=== PATIENT | female | born 1945 | race Caucasian/White ===

== ENCOUNTER 2019-05-27 06:57 | Day surgery (SDC) | payer MEDICARE ==
[~2019-05-27 06:57] MED LIST: CYCLOPENTOLATE 1% OPHTH DROPS 2 ML ONE; KETOROLAC 0.45% OPHTH DROPS ONE; PHENYLEPHRINE 2.5% OPHTH 2 ML DROPS ONE; PROPARACAINE 0.5% OPHTH DROPS 15 ML ONE
[2019-05-27] MEDS ORDERED: fentaNYL 100 MCG/2 ML VIAL IVP ONE (06:58)
[2019-05-27] MEDS ORDERED: MIDAZOLAM 2 MG/2 ML VIAL IVP ONE (06:58)
[2019-05-27] MEDS ORDERED: PHENYLEPHRINE 2.5% OPHTH 2 ML DROPS RIGHTEYE ONE (07:35)
[2019-05-27] MEDS ORDERED: PROPARACAINE 0.5% OPHTH DROPS 15 ML RIGHTEYE ONE ×2 (07:35→08:35)
[2019-05-27] MEDS ORDERED: CYCLOPENTOLATE 1% OPHTH DROPS 2 ML RIGHTEYE ONE (07:35)
[2019-05-27] MEDS ORDERED: KETOROLAC 0.45% OPHTH DROPS RIGHTEYE ONE (07:35)
[2019-05-27] MEDS ORDERED: LACTATED RINGERS 500 ML IV ONE (07:40)
--- NOTE | 2019-05-27 07:41 | ANESTHESIA ---
Pre-Anesthesia VS, & Labs - Diagnosis Right senile combined cataract - Procedure Right phaco with IOL implant Vital Signs: Temp Pulse Resp BP Pulse Ox 36.4 C L 78 18 141/79 H 95 05/27/19 07:26 05/27/19 07:26 05/27/19 07:26 05/27/19 07:26 05/27/19 07:26 Height 5 ft 4 in Weight (kg) 94.7 kg - NPO >8 hours, Other (Sip of water this am with pill) - Is Patient ?: Not Applicable - Lab Results Lab results reviewed: No Anes History & Medical History - Anesthetic History Anesthesia Complications: reports: No previous complications Family history of Anesthesia Complications: Denies Family history of Malignant Hyperthermia: Denies - Medical History Cardiovascular: reports: Hypertension Pulmonary: reports: COPD, Other (Chronic daily cough) Gastrointestinal: reports: None Urinary: reports: None Neuro: reports: None Musculoskeletal: reports: Osteoarthritis Endocrine/Autoimmune: reports: HyPOthyroidism Blood Disorders: reports: None Skin: reports: None Smoking Status: Current every day smoker Psychosocial: reports: No issues indicated, Other (Drinks wine daily) Exam General: Alert, Oriented x3, Cooperative Mouth Opening: Greater than 4 Fingerbreadths Neck Mobility: Normal Mallampati classification: II Thyromental Distance: greater than 6 cm Respiratory: Rhonchi Cardiovascular: Regular rate Plan Anesthesia Type: MAC (Patient anxious about procedure, hx of daily panic attacks, wants to remember nothing) Consent for Procedure(s) Verified and Reviewed: Yes Code Status: Attempt Resuscitation ASA classification: 3-Severe systemic disease Is this case an emergency?: No
[2019-05-27] MEDS ORDERED: BRIMONIDINE 0.2% OPHTH DROPS 5 ML ONE (07:42)
[2019-05-27] MEDS ORDERED: VANCOMYCIN OPHTHALMI 8MG/0.8ML 8 MG/0.8 ML SYRINGE IO ONE ×2 (07:42→08:36)
[2019-05-27] MEDS ORDERED: timoloL maleate 0.5% OPHTH DROPS (10ML) ONE (07:42)
[2019-05-27] MEDS ORDERED: TRIAMCIN/MOXIFLOX OPHTHALMIC 0.6 ML VIAL IO ONE ×2 (07:42→08:35)
[2019-05-27] MEDS ORDERED: BSS/LIDOCAINE/EPINEPHRINE 1 ML SYRINGE ONE (07:42)
[2019-05-27] MEDS ORDERED: BRIMONIDINE 0.2% OPHTH DROPS 5 ML OPTH ONE (08:34)
[2019-05-27] MEDS ORDERED: CHONDR SULF/HYALURONATE SYRINGE IO ONE (08:34)
[2019-05-27] MEDS ORDERED: EPINEPHrine 1 MG/ML AMP IVP ONE (08:34)
[2019-05-27] MEDS ORDERED: BSS/LIDOCAINE/EPINEPHRINE 1 ML SYRINGE IO ONE (08:35)
[2019-05-27] MEDS ORDERED: TIMOLOL 0.5% OPHTH DROPS OPTH ONE (08:35)
[2019-05-27 09:01] VITALS: BP 129/68
--- NOTE | 2019-05-27 10:26 | OPERATIVE REPORT ---
DATE OF SERVICE: 05/27/2019 Physician: Denton Delgado MD PREOPERATIVE DIAGNOSIS: Visually significant cataract, right eye. This was her first cataract surge ry. POSTOPERATIVE DIAGNOSIS: Visually significant cataract, right eye. This was her first cataract surg bria. DESCRIPTION OF PROCEDURE: Phacoemulsification with posterior chamber intraocular lens implant, right eye. SURGEON: Denton Delgado MD ANESTHESIA: Monitored anesthesia care. COMPLICATIONS: None. OPERATIVE INDICATIONS: This is a 73-year-old woman with progressive vision loss in the right eye due to 2-3+ nuclear sclerotic and 2-3+ cortical cataract. Best corrected visual acuity was 20/20, with glare to 20/100 in the right eye. Indications for surgery are overall decrease in vision, difficulty seeing words on a computer screen, difficulty reading, difficulty seeing words, closed caption or ga me scores on TV, difficulty seeing street signs, difficulty driving in low light or at night, difficu lty driving at night because of headlights from other vehicles, and difficulty with glare or bright l ights in any situation. She was consented at length concerning risks and benefits of cataract surger y, after which she expressed a desire to proceed with surgery. OPERATIVE PROCEDURE: Patient was taken to OR #3 and placed under monitored anesthesia care. A surgi kamran timeout was conducted confirming correct patient, correct procedure, and correct surgical site. She was given topical anesthesia, and prepped and draped in the usual sterile fashion. The eye was e ntered at the 12 and 9 o'clock positions. Intracameral Shugarcaine was injected into the anterior ch hcela, followed by Viscoat. A continuous tear curvilinear capsulorrhexis was performed. The nucleus was hydrodissected and phacoemulsified. Cortex was evacuated using automated infusion and aspiratio n. Provisc was injected in the capsular bag, and a 23.0 diopter intraocular lens was inserted into t he bag. Infusion and aspiration was used to evacuate the viscoelastic materials. The eye was inflat ed to physiologic pressure using balanced salt solution and found to be watertight. Approximately 0. 25 mL of a mixture of triamcinolone, moxifloxacin was injected transsclerally into the vitreous in th e inferotemporal quadrant. An additional 0.55 mL of a mixture of triamcinolone, moxifloxacin and van comycin was then injected subconjunctivally in the superior quadrant for infection and inflammation p rophylaxis. Wound integrity was checked with Weck-Mela sponges. Patient was taken from the operating room in good condition and given postoperative instructions. TD: 05/27/2019 08:55
== END 2019-05-27 06:58 | disposition home or self-care (01) ==
LOC: SDS 06:57
PROVIDERS: ATTEND Ophthalmology
PROC: 08RJ3JZ Replacement of Right Lens with Synthetic Substitute, Percutaneous Approach (ICD-10-PCS; principal; 2019-05-27 08:30)
DX: H25.811 Combined forms of age-related cataract, right eye (principal); F41.9 Anxiety disorder, unspecified; K21.9 Gastro-esophageal reflux disease without esophagitis; I10 Essential (primary) hypertension; E78.00 Pure hypercholesterolemia, unspecified; E03.9 Hypothyroidism, unspecified; Z79.82 Long term (current) use of aspirin; J44.9 Chronic obstructive pulmonary disease, unspecified; F17.200 Nicotine dependence, unspecified, uncomplicated
CPT/HCPCS: 66984; A9270; J3490; V2632

== ENCOUNTER 2020-08-07 16:41 | Outpatient (CLI) | payer MEDICARE | END 2020-08-07 16:42 | disposition home or self-care (01) | LOC: COV 16:41 | PROVIDERS: ATTEND Ophthalmology | DX: Z01.812 Encounter for preprocedural laboratory examination (principal); H25.812 Combined forms of age-related cataract, left eye; Z20.822 Contact with and (suspected) exposure to COVID-19 ==

== ENCOUNTER 2020-08-10 08:17 | Day surgery (SDC) | payer MEDICARE ==
[~2020-08-10 08:17] MED LIST changes: -CYCLOPENTOLATE 1% OPHTH DROPS 2 ML ONE; -PHENYLEPHRINE 2.5% OPHTH 2 ML DROPS ONE
[2020-08-10] MEDS ORDERED: LACTATED RINGERS 500 ML IV ONE ×2 (08:39→10:07)
[2020-08-10] MEDS ORDERED: TRIAMCIN/MOXIFLOX OPHTHALMIC 0.6 ML VIAL IO ONE ×3 (08:47→09:56)
[2020-08-10] MEDS ORDERED: BRIMONIDINE 0.2% OPHTH DROPS 5 ML ONE ×2 (08:47→08:59)
[2020-08-10] MEDS ORDERED: EPINEPHrine 1 MG/ML AMP ONE ×2 (08:47→08:59)
[2020-08-10] MEDS ORDERED: TIMOLOL 0.5% OPHTH DROPS ONE ×2 (08:48→08:59)
[2020-08-10] MEDS ORDERED: VANCOMYCIN OPHTHALMI 8MG/0.8ML 8 MG/0.8 ML SYRINGE IO ONE ×3 (08:48→09:57)
[2020-08-10] MEDS ORDERED: BSS/LIDOCAINE/EPINEPHRINE 1 ML SYRINGE ONE ×2 (08:48→08:59)
[2020-08-10] MEDS ORDERED: PHENYLEPHRINE 2.5% OPHTH 2 ML DROPS LEFTEYE ONE (08:57)
[2020-08-10] MEDS ORDERED: MIDAZOLAM 2 MG/2 ML VIAL ONE (08:58)
[2020-08-10] MEDS ORDERED: CYCLOPENTOLATE 2% OPHTH DROPS 2 ML LEFTEYE ONE (09:00)
--- NOTE | 2020-08-10 09:05 | ANESTHESIA ---
Pre-Anesthesia VS, & Labs - Diagnosis L senile combined cataract - Procedure L extraction cataract w/IOL Vital Signs: Temp Pulse Resp BP Pulse Ox 36.1 C L 79 16 145/81 H 100 08/10/20 08:45 08/10/20 08:45 08/10/20 08:45 08/10/20 08:45 08/10/20 08:45 Height: 5 ft 5 in Weight (kg): 90 kg Body Mass Index: 33.0 BMI Classification: Obese - NPO >8 hours - Is Patient ?: No - Lab Results Lab results reviewed: Yes Home Medications and Allergies Home Medications: Ambulatory Orders Alendronate [Fosamax] 70 mg PO Q7D 08/09/20 Vitamin B Complex Vit C No.3 [B Complex with Vitamin C] 1 tab PO DAILY 08/09/20 Cholecalciferol (Vitamin D3) [Vitamin D3] 2 mcg PO DAILY 08/10/20 Alprazolam [Xanax] 1 tab PO DAILY PRN 05/27/19 Aspirin [Adult Low Dose Aspirin EC] 81 mg PO DAILY 05/27/19 Clonazepam 0.5 mg PO DAILY PRN 05/27/19 Levothyroxine [Synthroid] 125 mcg PO DAILY 05/27/19 Simvastatin 20 mg PO DAILY 05/27/19 amLODIPine [Norvasc] 5 mg PO DAILY 05/27/19 Alendronate [Fosamax] 70 mg PO Q7D 08/09/20 Vitamin B Complex Vit C No.3 [B Complex with Vitamin C] 1 tab PO DAILY 08/09/20 Allergies/Adverse Reactions: Allergies Allergy/AdvReac Type Severity Reaction Status Date / Time adhesive tape Allergy Rash Verified 08/09/20 14:50 bacitracin Allergy Hives Verified 08/09/20 14:50 [From Triple Antibiotic] homatropine Allergy Respiratory Verified 08/09/20 14:50 [From Hycodan (with homatropin)] hydrocodone Allergy Respiratory Verified 08/09/20 14:50 [From Hycodan (with homatropin)] lidocaine Allergy Hives Verified 08/09/20 14:50 neomycin Allergy Hives Verified 08/09/20 14:50 [From Triple Antibiotic] polymyxin B Allergy Hives Verified 08/09/20 14:50 [From Triple Antibiotic] zolpidem [From Ambien] Allergy Hallucinati Verified 08/09/20 14:50 ons Anes History & Medical History - Anesthetic History Anesthesia Complications: reports: No previous complications Family history of Anesthesia Complications: Denies Family history of Malignant Hyperthermia: Denies - Medical History Cardiovascular: reports: Hypertension, High cholesterol Pulmonary: reports: COPD, Other Gastrointestinal: reports: None Urinary: reports: Incontinence Neuro: reports: None Musculoskeletal: reports: Chronic back pain Endocrine/Autoimmune: reports: HyPOthyroidism Blood Disorders: reports: None Skin: reports: None Smoking Status: Current every day smoker - Surgical History General: reports: Appendectomy Eyes Ears Nose Throat (EENT): reports: Tonsil/Adenoidectomy Gynecologic: reports: Hysterectomy, Oophrectomy Orthopedic: reports: Rotator cuff repair, Carpal Tunnel surgery, Spine surgery Exam General: Alert, Oriented x3, Cooperative Dental: WNL Mouth Openin Fingerbreadth Neck Mobility: Normal Mallampati classification: II Thyromental Distance: 4-6 cm Respiratory: Lungs clear, Normal breath sounds, No respiratory distress Cardiovascular: Regular rate Neurological: Normal speech Mental/Cognitive Status: Alert/Oriented X3, Normal for patient Cognitive Status: Within normal limits Plan Anesthesia Type: MAC Consent for Procedure(s) Verified and Reviewed: Yes Code Status: Attempt Resuscitation ASA classification: 3-Severe systemic disease Is this case an emergency?: No
[2020-08-10] MEDS ORDERED: fentaNYL 100 MCG/2 ML VIAL ONE (09:46)
[2020-08-10] MEDS ORDERED: BRIMONIDINE 0.2% OPHTH DROPS 5 ML OPTH ONE (09:55)
[2020-08-10] MEDS ORDERED: EPINEPHrine 1 MG/ML AMP IR ONE (09:55)
[2020-08-10] MEDS ORDERED: BSS/LIDOCAINE/EPINEPHRINE 1 ML SYRINGE IO ONE (09:56)
[2020-08-10] MEDS ORDERED: PROPARACAINE 0.5% OPHTH DROPS 15 ML EACHEYE ONE (09:56)
[2020-08-10] MEDS ORDERED: CHONDR SULF/HYALURONATE SYRINGE IO ONE (09:56)
[2020-08-10] MEDS ORDERED: TIMOLOL 0.5% OPHTH DROPS OPTH ONE (09:56)
--- NOTE | 2020-08-10 10:10 | ANESTHESIA POST OP EVALUATION ---
Anesthesia Post Eval - Post Anesthesia Eval Vitals: Last Vital Signs Temp 36.1 C L 08/10/20 08:45 Pulse 79 08/10/20 08:45 Resp 16 08/10/20 08:45 BP 145/81 H 08/10/20 08:45 Pulse Ox 100 08/10/20 08:45 CV Function Including HR & BP: Stable Pain Control: Satisfactory Nausea & Vomiting: Negative Mental Status: Baseline Respiratory Status: Airway Patent Hydration Status: Satisfactory Anesthesia Complications: None
--- NOTE | 2020-08-10 10:18 | OPERATIVE REPORT ---
Operative Report - Other Other Information/Narrative: Date of Surgery: 08/10/20 Preop Dx: Visually significant cataract left eye. [Cataract surgery was performed in the right eye on 05/27/2019. Postop Dx: Same Procedure: Phacoemulsification with posterior chamber intraocular lens implant left eye Surgeon: Dr. Denton Delgado Anesthesia: Monitored anesthesia care Complications: None Operative Indications: This is a 75-year-old F with progressive vision loss in the left eye due to 2-3+ nuclear sclerotic and 1+ cortical cataract. Best corrected visual acuity was 20/25 with glare to hand motion vision in the left eye. Indications for surgery were: - Difficulty driving in low light or at night - Difficulty driving at night because of headlights from other vehicles - Difficulty with glare or bright lights in any situation The patient was consented at length concerning the risks and benefits of cataract surgery after which the patient expressed a desire to proceed with surgery. Operative Procedure: The patient was taken into OR#3 and placed under monitored anesthesia care. A surgical time-out was conducted confirming correct patient, correct procedure, and correct surgical site. The patient was given topical anesthesia and then prepped and draped in the usual sterile fashion. The eye was entered at the 6 and 3 oclock positions. Intracameral Shugarcaine was injected into the anterior chamber followed by a dispersive viscoelastic. A continuous-tear curvilinear capsulorhexis was performed. The nucleus was hydrodissected and phacoemulsified. The cortex was evacuated using automated infusion and aspiration. A cohesive viscoelastic was injected into the capsular bag and a 21.5 diopter intraocular lens was inserted into the bag. Infusion and aspiration were used to evacuate the viscoelastic materials from the eye. The wounds were hydrated and the eye inflated to physiologic pressure using balanced salt solution. Approximately 0.25ml of a mixture of triamcinolone and moxifloxacin was injected trans-sclerally into the vitreous in the inferotemporal quadrant using a 30 gauge cannula. An additional 0.55ml of a mixture of triamcinolone, moxifloxacin, and vancomycin was injected subconjunctivally in the superior quadrant for infection and inflammation prophylaxis. Wound integrity was checked with Weck-Mela sponges. The patient was taken from the operating room in good condition and given post-op instructions.
[2020-08-10 11:07] VITALS: BP 135/118
== END 2020-08-10 08:18 | disposition home or self-care (01) ==
LOC: SDS 08:17
PROVIDERS: ATTEND Ophthalmology
DX: H25.812 Combined forms of age-related cataract, left eye (principal); I10 Essential (primary) hypertension; E03.9 Hypothyroidism, unspecified; E78.00 Pure hypercholesterolemia, unspecified; J44.9 Chronic obstructive pulmonary disease, unspecified; F17.200 Nicotine dependence, unspecified, uncomplicated; F41.9 Anxiety disorder, unspecified; E66.9 Obesity, unspecified; Z68.33 Body mass index [BMI] 33.0-33.9, adult; R32 Unspecified urinary incontinence; Z98.41 Cataract extraction status, right eye; Z96.1 Presence of intraocular lens; K21.9 Gastro-esophageal reflux disease without esophagitis; Z79.82 Long term (current) use of aspirin; Z79.899 Other long term (current) drug therapy
CPT/HCPCS: 66984; A9270; J3490; J7120; V2632

== ENCOUNTER 2022-07-15 21:28 | Outpatient (CLI) | payer MEDICARE | END 2022-07-15 21:29 | disposition critical access hospital (66) | LOC: EMS 21:28 | DX: R53.1 Weakness (principal); J18.9 Pneumonia, unspecified organism; R42 Dizziness and giddiness; W18.39XA Other fall on same level, initial encounter; Y92.003 Bedroom of unspecified non-institutional (private) residence as the place of occurrence of the external cause | CPT/HCPCS: A0425; A0429 ==

== ENCOUNTER 2022-07-15 21:47 | Inpatient (IN) | payer MEDICARE ==
[2022-07-15] MEDS ORDERED: ALBUTEROL NEB 2.5 MG/3 ML INH STA (22:35)
[2022-07-15 22:42] LABS: BASOPHILS # (AUTO) 0.1 10^3/uL (0.0-0.1); BASOPHILS % (AUTO) 0.9 %; EOSINOPHILS % (AUTO) 0.3 %; HCT - HEMATOCRIT 41.6 % (37.0-47.0); HGB - HEMOGLOBIN 15.1 g/dL (12.0-16.0); LYMPHOCYTES # (AUTO) 0.6 10^3/uL (1.5-3.5); LYMPHOCYTES % (AUTO) 7.2 %; MEAN CORPUSCULAR HEMOGLOBIN 37.5 pg (27.0-31.0); MEAN CORPUSCULAR HGB CONC 36.3 g/dL (32.0-36.0); MEAN CORPUSCULAR VOLUME 103.2 fL (81.0-99.0); MEAN PLATELET VOLUME 8.9 fL (7.9-10.8); MONOCYTES # (AUTO) 0.2 10^3/uL (0.0-1.0); NEUTROPHILS # (AUTO) 7.8 10^3/uL (1.5-6.6); NEUTROPHILS % (AUTO) 88.1 %; PLT - PLATELET COUNT 234 10^3/uL (130-450); RED BLOOD COUNT 4.03 10^6/uL (4.20-5.40); RED CELL DISTRIBUTION WIDTH 13.2 % (12.0-15.0); WHITE BLOOD COUNT 8.8 x10^3/uL (4.8-10.8)
[2022-07-15 22:55] LABS: ALBUMIN 2.4 g/dL (3.2-5.5); ALBUMIN/GLOBULIN RATIO 0.8 (1.0-2.2); CALCIUM 8.7 mg/dL (8.5-10.3); CREATININE 0.7 mg/dL (0.4-1.0); TOTAL PROTEIN 5.4 g/dL (6.7-8.2)
--- NOTE | 2022-07-15 23:12 | ED Physician Documentation ---
PD HPI Fall - Stated complaint Stated Complaint: GLF - Chief complaint Chief Complaint: General - History obtained from History obtained from: Patient - Additional information Additional information: HPI from patient with some HPI information provided by EMS. Patient is brought in by ambulance. Patient's chief complaint is generalized weakness. She was evaluated earlier today in the outpatient setting for dyspnea and cough, was diagnosed with pneumonia and prescribed Zithromax and fluconazole. She filled both of these prescriptions and has already taken the first dose (500 mg) of the Zithromax. Patient has COPD although she is not oxygen dependent, does not use or have a nebulizer; she does have an inhaler which she is only used as needed. The patient says her outpatient evaluation included blood tests as well as a chest x-ray. Patient says she was contacted [facility] and told her sodium was 120 (per patient; at the time she was contacted, she already had called 911 for weakness). After her outpatient evaluation, she returned home and [facility] she was taking shower when she experienced rapid onset of generalized weakness, causing her to fall. She describes a slow descent to the ground rather than a sudden fall; she denies any injury, denies any pain at this time. However, she found that she was too weak to stand back up. Family then called 911. EMS arrived to find patient with a pulse ox of 78% on room air, improved with 4 L nasal cannula oxygen to 89-91%. Patient says that when she fell, she did hit her head but denies headache, denies loss of consciousness. Review of Systems Constitutional: reports: Fatigue. denies: Fever, Chills, Sweats Cardiac: reports: Reviewed and negative Respiratory: reports: Dyspnea, Cough. denies: Hemoptysis, Wheezing GI: reports: Reviewed and negative : denies: Dysuria, Frequency Musculoskeletal: reports: Reviewed and negative Neurologic: reports: Generalized weakness, Head injury. 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, Oophrectomy HEENT: Tonsil/Adenoidectomy - Present Medications Home Medications: Ambulatory Orders Medication Instructions Recorded Confirmed Aspirin [Adult Low Dose Aspirin EC] 81 mg PO DAILY 05/27/19 07/16/22 clonazePAM [Clonazepam] 0.5 mg PO DAILY PRN 05/27/19 07/16/22 Cetirizine [ZyrTEC] 10 mg PO DAILY PRN 07/16/22 07/16/22 Cholecalciferol (Vitamin D3) 100 mcg PO DAILY 07/16/22 07/16/22 [Vitamin D3] Estradiol [Estrace] 1 g VG DAILY 07/16/22 07/16/22 Ibuprofen [Motrin] 400 mg PO TID PRN 07/16/22 07/16/22 Ipratropium/Albuterol [Combivent 1 puffs INH Q6H PRN 07/16/22 07/16/22 Respimat] Levothyroxine [Synthroid] 125 mcg PO QDAC 07/16/22 07/16/22 amLODIPine [Norvasc] 5 mg PO DAILY 07/16/22 07/16/22 - Allergies Allergies/Adverse Reactions: Allergies Allergy/AdvReac Type Severity Reaction Status Date / Time adhesive tape Allergy Rash Verified 08/09/20 14:50 bacitracin Allergy Hives Verified 08/09/20 14:50 [From Triple Antibiotic] homatropine Allergy Respiratory Verified 08/09/20 14:50 [From Hycodan (with homatropin)] hydrocodone Allergy Respiratory Verified 08/09/20 14:50 [From Hycodan (with homatropin)] lidocaine Allergy Hives Verified 08/09/20 14:50 neomycin Allergy Hives Verified 08/09/20 14:50 [From Triple Antibiotic] polymyxin B Allergy Hives Verified 08/09/20 14:50 [From Triple Antibiotic] zolpidem [From Ambien] Allergy Hallucinati Verified 08/09/20 14:50 ons - Social History Smoking Status: Current every day smoker PD ED PE NORMAL - Vitals Vital signs reviewed: Yes - General General: Alert and oriented X 3, No acute distress, Well developed/nourished - HEENT HEENT: Moist mucous membranes - Neck Neck: Supple, no meningeal sign, No bony TTP - Cardiac Cardiac: RRR - Respiratory Respiratory: No respiratory distress - Derm Derm: Normal color, Warm and dry - Extremities Extremities: No edema - Neuro Neuro: Alert and oriented X 3, fullerette 2-12 intact, Normal speech Eye Opening: Spontaneous Motor: Obeys Commands Verbal: Oriented GCS Score: 15 PD ED PE EXPANDED - Respiratory Respiratory: Rhonchi, Decreased breath sounds, Right upper lobe. No: Distress, Wheezing, Rales Results - Vitals Vitals: Vital Signs - 24 hr 07/15/22 07/15/22 07/15/22 22:06 22:10 22:11 Temperature 36.9 C Heart Rate 102 H Respiratory Rate Blood Pressure 120/65 O2 Saturation 78 L 78 L 92 If not protocol 4 : Oxygen Flow, liters/minute 07/15/22 07/15/22 07/15/22 22:53 23:00 23:59 Temperature Heart Rate 102 H 107 H 105 H Respiratory 24 22 24 Rate Blood Pressure 104/61 114/72 O2 Saturation 90 L 90 L If not protocol 4 4 5 : Oxygen Flow, liters/minute 07/16/22 07/16/22 07/16/22 01:13 01:59 02:00 Temperature 36.9 C Heart Rate 101 H 105 H 103 H Respiratory 26 H 22 22 Rate Blood Pressure 106/62 106/68 106/68 O2 Saturation 92 89 L 88 L If not protocol 5 4 4 : Oxygen Flow, liters/minute 07/16/22 07/16/22 07/16/22 04:00 06:13 07:14 Temperature Heart Rate 95 99 98 Respiratory 25 H 21 22 Rate Blood Pressure 129/64 113/62 O2 Saturation 90 L 90 L If not protocol 5 5 : Oxygen Flow, liters/minute 07/16/22 07/16/22 07/16/22 07:20 07:46 08:29 Temperature Heart Rate 101 H 93 99 Respiratory 25 H 28 H 14 Rate Blood Pressure 114/73 92/59 L 100/46 L O2 Saturation 92 93 88 L If not protocol 6 6 4.5 : Oxygen Flow, liters/minute 07/16/22 07/16/22 09:43 10:30 Temperature Heart Rate 101 H 99 Respiratory 28 H 26 H Rate Blood Pressure 108/70 113/82 H O2 Saturation 92 90 L If not protocol 6 4 : Oxygen Flow, liters/minute Oxygen O2 Source Nasal cannula - Labs Labs: Laboratory Tests 07/15/22 07/15/22 07/15/22 22:28 22:28 22:42 WBC 8.8 RBC 4.03 L Hgb 15.1 Hct 41.6 MCV 103.2 H MCH 37.5 H MCHC 36.3 H RDW 13.2 Plt Count 234 MPV 8.9 Neut # (Auto) 7.8 H Lymph # (Auto) 0.6 L Morris # (Auto) 0.2 Eos # (Auto) 0.0 Baso # (Auto) 0.1 Absolute Nucleated RBC 0.00 Nucleated RBC % 0.0 Sodium 123 L Potassium 4.0 Chloride 87 L Carbon Dioxide 24 Anion Gap 12.0 BUN 25 H Creatinine 0.7 Estimated GFR (MDRD) 82 L Glucose 89 Lactic Acid Calcium 8.7 Total Bilirubin 1.0 AST 36 ALT 24 Alkaline Phosphatase 134 H Total Protein 5.4 L Albumin 2.4 L Globulin 3.0 Albumin/Globulin Ratio 0.8 L Lipase 28 Urine Color Urine Clarity Urine pH Ur Specific [place] Urine Protein Urine Glucose (UA) Urine Ketones Urine Occult Blood Urine Nitrite Urine Bilirubin Urine Urobilinogen Ur Leukocyte Esterase Ur Microscopic Review Urine Culture Comments Nasal Adenovirus (PCR) NOT DETECTED Nasal B. parapertussis DNA (PCR) NOT DETECTED Nasal Coronavir 229E PCR NOT DETECTED Nasal Coronavir HKU1 PCR NOT DETECTED Nasal Coronavir NL63 PCR NOT DETECTED Nasal Coronavir OC43 PCR NOT DETECTED Nasal Enterovir/Rhinovir PCR NOT DETECTED Nasal Influenza B PCR NOT DETECTED Nasal Influenza A PCR NOT DETECTED Nasal Parainfluen 1 PCR NOT DETECTED Nasal Parainfluen 2 PCR NOT DETECTED Nasal Parainfluen 3 PCR NOT DETECTED Nasal Parainfluen 4 PCR NOT DETECTED Nasal RSV (PCR) NOT DETECTED Nasal B.pertussis DNA PCR NOT DETECTED Nasal C.pneumoniae (PCR) NOT DETECTED Curtis Human Metapneumo PCR NOT DETECTED Nasal M.pneumoniae (PCR) NOT DETECTED Nasal SARS-CoV-2 (PCR) NOT DETECTED 07/16/22 07/16/22 07/16/22 00:12 00:42 05:05 WBC RBC Hgb Hct MCV MCH MCHC RDW Plt Count MPV Neut # (Auto) Lymph # (Auto) Morris # (Auto) Eos # (Auto) Baso # (Auto) Absolute Nucleated RBC Nucleated RBC % Sodium 126 L Potassium 3.8 Chloride 90 L Carbon Dioxide 28 Anion Gap 8.0 BUN 21 H Creatinine 0.5 Estimated GFR (MDRD) 120 Glucose 88 Lactic Acid 1.8 Calcium 8.3 L Total Bilirubin AST ALT Alkaline Phosphatase Total Protein Albumin Globulin Albumin/Globulin Ratio Lipase Urine Color YELLOW Urine Clarity CLEAR Urine pH 5.5 Ur Specific [place] 1.025 Urine Protein NEGATIVE Urine Glucose (UA) NEGATIVE Urine Ketones NEGATIVE Urine Occult Blood NEGATIVE Urine Nitrite NEGATIVE Urine Bilirubin NEGATIVE Urine Urobilinogen 2 H Ur Leukocyte Esterase NEGATIVE Ur Microscopic Review NOT INDICATED Urine Culture Comments NOT INDICATED Nasal Adenovirus (PCR) Nasal B. parapertussis DNA (PCR) Nasal Coronavir 229E PCR Nasal Coronavir HKU1 PCR Nasal Coronavir NL63 PCR Nasal Coronavir OC43 PCR Nasal Enterovir/Rhinovir PCR Nasal Influenza B PCR Nasal Influenza A PCR Nasal Parainfluen 1 PCR Nasal Parainfluen 2 PCR Nasal Parainfluen 3 PCR Nasal Parainfluen 4 PCR Nasal RSV (PCR) Nasal B.pertussis DNA PCR Nasal C.pneumoniae (PCR) Curtis Human Metapneumo PCR Nasal M.pneumoniae (PCR) Nasal SARS-CoV-2 (PCR) - Rads (name of study) CXR Relevant Findings:: Prelim report reviewed, EMP independent interpretation of test (I reviewed these images and my interpretation is right upper lobe consolidation, mild cardiomegaly.), See rad report CT chest with IV contrast Relevant Findings:: Prelim report reviewed (Radiologist interpretation is "Significant consolidation involving the right upper lobe containing air bronchograms. Small right pleural effusion With passive atelectasis. Patchy infiltrates within the left upper lobe. Findings are most consistent with infectious process"), See rad report PD Medical Decision Making - ED course Complexity details: reviewed results, re-evaluated patient, considered differential, d/w patient ED course: No concerning findings on CBC (normal white blood cell count at 8.8). Lactate is also normal with result of 1.8. Significant hyponatremia with sodium level of 123. Despite the white blood cell count and lactate results within normal range, patient has a significant consolidation of the right upper lobe on chest x-ray with associated hypoxia as noted in HPI. She had already taken 500 mg of Zithromax earlier this evening. She is given 2 g of Rocephin in the emergency department tonight. She is also given an albuterol neb treatment. I discussed this case with the on-call physician for [place] (patient is a [place] patient). He agrees patient will require admission to the hospital for pneumonia, particularly in light of the significant hypoxia on room air. He recommends CT chest with intravenous contrast before disposition; the reason for this is that she did have a fall tonight and the extent of the right upper lobe consolidation/opacity could cause obscuration of visualization of the ribs. Associated acute rib fractures would complicate the treatment and prognosis and patient might benefit from transfer to another facility if this were the case. The CT chest performed, confirming right upper lobe consolidation, also showing small patchy infiltrates of the left upper lobe, as well. Also noted is a small right pleural effusion. There is no evidence of bony injury including rib fractures. I recontacted the physician for [place] and relayed these results to him. He subsequently recontacted me; there are no beds available at other [place] associated hospitals ([facility], [facility], [facility]), and thus admission to [facility] is approved. At this time, only ICU beds are available at [facility]. Despite the hypoxia on room air, it is noted that on 5 L of nasal cannula oxygen, her pulse ox maintained in the mid 90s and she is in no distress, able to speak in full sentences. Thus, plan is to hold patient in the emergency department until the morning when general/medical surgical beds are likely to become available at [facility]. Care of patient is turned over to the oncoming ED physician (Dr. San) at the end of my shift pending bed availability. Regarding the hyponatremia, she is given 1 L of normal saline over 4 hours. Sodium recheck after the infusion was complete improved from 123-126. She was then given normal saline IV at a maintenance rate of 150 cc/h. Departure - Departure Disposition: [address] [facility] DC/Xfer Clinical Impression: Hyponatremia Pneumonia Qualifiers: Pneumonia type: due to unspecified organism Laterality: bilateral Lung location: upper lobe of lung Qualified Code(s): J18.9 - Pneumonia, unspecified organism Condition: Stable Discharge Date/Time: 07/16/22 13:02
[2022-07-15 23:47] LABS: B. PARAPERTUSSIS- RESP PCR PAN NOT DETECTED; B. PERTUSSIS- RESP PCR PANEL NOT DETECTED; C. PNEUMONIAE- RESP PCR PANEL NOT DETECTED; CORONAVIRUS 229E-RESP PCR NOT DETECTED; CORONAVIRUS HKU1-RESP PCR NOT DETECTED; CORONAVIRUS NL63-RESP PCR NOT DETECTED; CORONAVIRUS OC43-RESP PCR NOT DETECTED; HUMAN METAPNEUMOVIRUS NOT DETECTED; INFLUENZA A- RESP PCR PANEL NOT DETECTED; INFLUENZA B - RESP PCR PANEL NOT DETECTED; M. PNEUMONIAE- RESP PCR PANEL NOT DETECTED; PARAINFLUENZA VIRUS 1 NOT DETECTED; PARAINFLUENZA VIRUS 2 NOT DETECTED; PARAINFLUENZA VIRUS 3 NOT DETECTED; PARAINFLUENZA VIRUS 4 NOT DETECTED; RHINOVIRUS/ENTEROVIRUS NOT DETECTED; RSV- RESP PCR PANEL NOT DETECTED; SARS-CoV-2 -RESP PCR PANEL NOT DETECTED
--- NOTE | 2022-07-16 00:17 | XRAY Report ---
PROCEDURE: Chest 2 View X-Ray INDICATIONS: cough TECHNIQUE: 2 views of the chest were acquired. COMPARISON: None. FINDINGS: Surgical changes and devices: None. Lungs and pleura: There are confluent right upper lobe airspace opacities consistent with consolidat ion. No pleural effusions or pneumothorax. Mediastinum: Mediastinal contours appear normal. Heart size is normal. Bones and chest wall: No suspicious bony lesions. Overlying soft tissues appear unremarkable. IMPRESSION: 1. Right upper lobe consolidation compatible with lobar pneumonia given clinical history. Reviewed by: Manjit Pride MD on 07/16/2022 12:15 AM PDT Approved by: Manjit Pride MD on 07/16/2022 12:15 AM PDT Station ID: [id number]
[2022-07-16] MEDS ORDERED: cefTRIAXone 2 GM in SODIUM CHLORIDE 0.9% MINIBAG 100 ML IV STA (00:22)
[2022-07-16] MEDS ORDERED: SODIUM CHLORIDE 0.9% 1,000 ML IV STA ×2 (00:23→04:39)
[2022-07-16] MEDS ORDERED: cefTRIAXone 2 GM VIAL ONE (00:30)
[2022-07-16 00:37] LABS: BILIRUBIN,URINE NEGATIVE (NEGATIVE); GLUCOSE, URINE (UA) NEGATIVE (NEGATIVE); KETONES,URINE (UA) NEGATIVE (NEGATIVE); LEUKOCYTE ESTERASE, URINE NEGATIVE (NEGATIVE); NITRITE,URINE NEGATIVE (NEGATIVE); OCCULT BLOOD,URINE NEGATIVE (NEGATIVE); PH,URINE 5.5 PH (5.0-7.5); PROTEIN,URINE NEGATIVE (NEGATIVE); UROBILINOGEN,URINE 2 E.U./dL (NORMAL)
[2022-07-16 00:38] LABS: CLARITY,URINE CLEAR (CLEAR)
[2022-07-16] MEDS ORDERED: iohexoL-300 100 ML VIAL ONE (02:11)
[2022-07-16 05:27] LABS: CALCIUM 8.3 mg/dL (8.5-10.3); CREATININE 0.5 mg/dL (0.4-1.0); POTASSIUM 3.8 mmol/L (3.5-5.0)
[2022-07-16] MEDS ORDERED: AZITHROMYCIN INJ 500 MG in SODIUM CHLORIDE 0.9% 250 ML IV STA (07:11)
[2022-07-16] MEDS ORDERED: ALBUTEROL NEB 2.5 MG/3 ML INH STA (07:14)
[2022-07-16] MEDS ORDERED: methylPREDNISolone SUCCINATE 125 MG/2 ML VIAL IVP STA (07:46)
[2022-07-16] MEDS ORDERED: SODIUM CHLORIDE 0.9% 500 ML IV STA (08:29)
[2022-07-16] MEDS ORDERED: AZITHROMYCIN INJ 500 MG in SODIUM CHLORIDE 0.9% 250 ML IV SCH ×2 (08:30→09:00)
--- NOTE | 2022-07-16 10:00 | CT Report ---
PROCEDURE: CHEST W INDICATIONS: fall, RUL consolidation CONTRAST: Omni 300 100ml TECHNIQUE: After the administration of intravenous contrast, 1 mm axial images were acquired from the pulmonary apices through the posterior costophrenic angles. Axial 5 mm soft tissue kernel reconstructions were performed as well as 8 mm axial MIP and coronal and sagittal 5 mm reformations. For radiation dose reduction, the following was used: automated exposure control, adjustment of mA and/or kV according to patient size. COMPARISON: Chest x-ray, 07/15/2022. FINDINGS: Image quality: Excellent. Lungs and pleura: There is large area of right upper lobe consolidation consistent with pneumonia. Mi ld infiltrate is also present in the left upper lobe. Small effusions are present, small on the right and trace on the left. Bibasilar atelectasis. No pneumothorax. There is a 5 mm nodule in the left major fissure (series 4 image 151). Mediastinum: Heart size is normal. There is severe coronary atherosclerosis. No pericardial effusions . There is mediastinal and hilar adenopathy. For example, there is a 1.8 cm right paratracheal lymph no de. There is a clustered AP window lymph node measuring up to 1.3 cm. A 1.3 cm right hilar lymph node is identified. There is a 1 cm left hilar lymph node. Chest wall and lower neck: Thyroid is unremarkable. No axillary or supraclavicular adenopathy by size . Bones: Moderate compression fracture of T12 with vertebroplasty. Degenerative changes are noted in th oracic and upper lumbar spine. Upper Abdomen: Mild hepatic steatosis. There is a vague 2.3 cm subcapsular area of increased enhancem ent in the right hepatic lobe, which may be secondary to transient hepatic enhancement difference. Bi lateral adrenal thickening. IMPRESSION: 1. Right upper lobe consolidation consistent with pneumonia. Mild pneumonia is also seen in the left upper lobe. 2. Bilateral pleural effusions, small on the right and trace on the left. 3. Mediastinal and hilar lymphadenopathy, most likely reactive in the setting of acute pneumonia. 4. Mild cardiomegaly. Severe coronary atherosclerosis. 5. A 5 mm nodule along the right major fissure. Please see enclosed follow-up recommendation. No significant discrepancy with the preliminary interpretation. Fleischner Society criteria for SOLID lung nodule followup. Nodule size (mm)Low-risk patientHigh-risk patient "d4No follow-up neededFollow-up at 12 mo; if no change, no further follow-up >7-2Bquegd-za CT at 12 mo; if no change, no further follow-up needed.Initial follow-up CT at 6-12 mo, then 18-24 mo if no change. >6-8Initial follow-up CT at 6-12 mo, then 18-24 mo if no change. Initial follow-up CT at 3-6 mo, then 9-12 mo and 24 mo if no change. >8Follow-up CT at 3, 9, 24 mo. Or PET and/or biopsy.Same as for low-risk pts. Reviewed by: Refugio Gant MD on 07/16/2022 9:58 AM PDT Approved by: Refugio Gant MD on 07/16/2022 9:58 AM PDT Station ID: [id number]
[2022-07-16] MEDS ORDERED: ACETAMINOPHEN 325 MG TABLET PO STA (10:30)
--- NOTE | 2022-07-16 10:39 | ED Physician Documentation ---
ED Addendum - Addendum Addendum: Patient signed out to me by overnight physician awaiting admission to hospital for right upper lobe pneumonia with hypoxia. Patient's blood pressures have been soft this morning. She has not received any fluid boluses so did give her a small 500 cc bolus which she responded to. I did evaluate the patient at the bedside. She is conversant, does not appear to be in any respiratory distress and understands plan for admission once a bed is available. 07/16/22 10:39 Discussed with admitting hospitalist Dr. Velasquez who will admit the patient for further management. Aware that a head CT is pending As patient did have a fall this morning and is now complaining of a headache and imaging was not previously done. I did review the head CT and no signs of an intracranial hemorrhage or bleed. Departure - Departure Disposition: [facility] DC/Xfer Clinical Impression: Hyponatremia Pneumonia Qualifiers: Pneumonia type: due to unspecified organism Laterality: bilateral Lung location: upper lobe of lung Qualified Code(s): J18.9 - Pneumonia, unspecified organism Condition: Stable Discharge Date/Time: 07/16/22 13:02
[2022-07-16] MEDS ORDERED: ONDANSETRON 4 MG/2 ML VIAL IVP PRN (11:22)
[2022-07-16] MEDS ORDERED: ALBUTEROL NEB 2.5 MG/3 ML INH PRN (11:27)
--- NOTE | 2022-07-16 11:44 | CT Report ---
PROCEDURE: HEAD WO INDICATIONS: head trauma TECHNIQUE: Noncontrast 4.5 mm thick angled axial sections acquired from the foramen magnum to the vertex. For r adiation dose reduction, the following was used: automated exposure control, adjustment of mA and/or kV according to patient size. COMPARISON: None. FINDINGS: Image quality: Excellent. CSF spaces: Basal cisterns are patent. No extra-axial fluid collections. The ventricles are symmet julia in size and shape. Brain: No intracranial bleeds or masses. There is cerebral volume loss for age, with resultant vent ricular and sulcal prominence. There are periventricular and deep white matter chronic small vessel ischemic changes. There is intracranial internal carotid artery atherosclerosis. Skull and face: Calvarium and visualized facial bones appear intact, without suspicious lesions. Sinuses: Visualized sinuses and mastoids are clear. IMPRESSION: 1. No CT evidence of acute intracranial abnormalities. 2. No acute skull fracture. 3. Age-related volume loss and mild white matter chronic small vessel ischemic changes. Reviewed by: Toan Abebe MD on 07/16/2022 11:43 AM PDT Approved by: Toan Abebe MD on 07/16/2022 11:43 AM PDT Station ID: [id number]
[2022-07-16] MEDS: ENOXAPARIN 40 MG/0.4 ML SYRINGE SUBQ SCH (12:32)
[2022-07-16] MEDS: SODIUM CHLORIDE 0.9% 1,000 ML IV SCH ×2 (13:26→21:40)
--- NOTE | 2022-07-16 14:18 | HISTORY & PHYSICAL EXAMINATION ---
Chief Complaint - Chief Complaint Chief Complaint: Pneumonia and weakness History of Present Illness - Admitted From Admitted From:: [facility] ED - History Obtained From Records Reviewed: ED Provider note History obtained from: patient and ED provider - History of Present Illness HPI Comment/Other: Patient is a 77 year old female with a history of COPD and tobacco use disorder. She was brought to the ED by ambulance on 07/15. Her chief complaint was generalized weakness. She was evaluated the morning of 07/15 in the outpatient setting at a [facility] in [place] for dyspnea and cough x 1 week. The patient reported that her outpatient evaluation included blood tests as well as a chest x-ray. She was diagnosed with pneumonia and prescribed Zithromax and fluconazole. She filled both of these prescriptions and took the first dose (500 mg) of the Zithromax on 07/15. Patient has COPD although she is not oxygen dependent and does not use or have a nebulizer. She does have an inhaler which she only uses as needed. After her outpatient evaluation, she returned home and later that night, she was taking shower when she experienced rapid onset of generalized weakness, causing her to fall. She described a slow descent to the ground rather than a sudden fall. However, she found that she was too weak to stand back up. Family then called 911. She says she was contacted later that night by her PCP and was told that her sodium was 120 (per patient; at the time she was contacted, she already had called 911 for weakness). EMS arrived to find patient with a pulse ox of 78% on room air, improved with 4 L nasal cannula oxygen to 89-91%. Patient says that when she fell, she did hit her head but denies headache, denies loss of consciousness. She denied any pain on arrival to the ED. Initial labs revealed significant hyponatremia with a sodium level of 123. The ER provider found no concerning findings on CBC (normal white blood cell count at 8.8). Patient's lactate was also normal with result of 1.8. Despite the white blood cell count and lactate results within normal range, patient had a significant consolidation of the right upper lobe on chest x-ray with associated hypoxia. She was not given another dose of azithromycin because she had already taken 500 mg of Zithromax earlier that evening. On 07/16, she was given 2 g of Rocephin in the emergency department and was also given an albuterol neb treatment. The ER provider discussed this case with the on-call physician for [facility] (patient is a [facility] patient). He agreed that the patient would require admission to the hospital for the pneumonia particularly in light of the significant hypoxia on room air. He recommended CT chest with intravenous contrast before disposition; the reason for this is that she did have a fall tonight, and the extent of the right upper lobe consolidation/opacity is causing some degree of obscuration of the ribs. Should she have associated rib fractures in this area, patient might benefit from transfer to another facility. The CT chest was completed on 07/16, and this confirms the right upper lobe consolidation, small patchy infiltrates of the left upper lobe, and a 5 mm nodule on the LEFT major fissure. Also noted is a small right pleural effusion. There is no evidence of bony injury including rib fractures on the CT. The ER physician recontacted the physician for [facility] and relayed these results to him. He subsequently recontacted the ER provider; there are no beds available at other [facility] associated hospitals ([facility], [facility]), and thus admission to [facility] is approved. Patient was admitted to [facility] on 07/16. Currently, the patient is doing well. She is not having shortness of breath and is itching to get up and walk around. She believes her hyponatremia was caused by not eating much since her shortly after staying in room 2206 just a few weeks ago. She also reports that she has consequently lost about 30 pounds in the last 3 weeks. She no longer has any weakness. She ambulates with a walker. When I asked her about her smoking history, she became tearful and said that "she sees cigarettes everywhere she looks". She has been smoking since age 21 when she got . She has tried quitting smoking, even including hypnotherapy, but nothing has worked. She has, however, decreased from 3 packs daily to 8 cigarettes daily. She was embarrassed to talk about her smoking habits around her son and grandchild, so she asked to pull me aside to discuss this. History - Past Medical History Cardiovascular: reports: Hypertension, High cholesterol Respiratory: reports: COPD Neuro: reports: None Endocrine/Autoimmune: reports: HyPOthyroidism GI: reports: None : reports: Incontinence HEENT: reports: Chronic vision loss, Chronic hearing loss Psych: reports: Anxiety Musculoskeletal: reports: Chronic back pain Derm: reports: None MRSA Hx?: No - Past Surgical History General: reports: Appendectomy Ortho: reports: Rotator cuff repair, Carpal Tunnel surgery, Spine surgery /[employer]OUNT [employer]ECUTIVE: reports: Hysterectomy, Oophrectomy HEENT: reports: Tonsil/Adenoidectomy - Family & Social History Living arrangement: At home Living Situation: With family Social History Notes: Patient lives with her son and grandchild. Her son has OCD related to cleanliness. She had to convince him to allow EMS to enter their house by telling him that he could vacuum and clean the furniture as much as he wanted to after she was taken to the hospital. - Substance History Use: Uses substance without health or social issues: Tobacco (Patient smokes about 8 cigarettes daily and has smoked since she was 21) Tobacco Details: Cigarettes Meds/Allgy - Home Medications Home Medications: Ambulatory Orders Medication Instructions Recorded Confirmed RX: Aspirin [Adult Low Dose 81 mg PO DAILY 05/27/19 07/16/22 Aspirin EC] RX: clonazePAM [Clonazepam] 0.5 mg PO DAILY PRN 05/27/19 07/16/22 Cholecalciferol (Vitamin D3) 100 mcg PO DAILY 07/16/22 07/16/22 [Vitamin D3] Ipratropium/Albuterol [Combivent 1 puffs INH Q6H PRN 07/16/22 07/16/22 Respimat] RX: Cetirizine [ZyrTEC] 10 mg PO DAILY PRN 07/16/22 07/16/22 RX: Estradiol [Estrace] 1 g VG DAILY 07/16/22 07/16/22 RX: Ibuprofen [Motrin] 400 mg PO TID PRN 07/16/22 07/16/22 RX: Levothyroxine [Synthroid] 125 mcg PO QDAC 07/16/22 07/16/22 RX: amLODIPine [Norvasc] 5 mg PO DAILY 07/16/22 07/16/22 - Allergies Allergies/Adverse Reactions: Allergies Allergy/AdvReac Type Severity Reaction Status Date / Time adhesive tape Allergy Rash Verified 08/09/20 14:50 bacitracin Allergy Hives Verified 08/09/20 14:50 [From Triple Antibiotic] homatropine Allergy Respiratory Verified 08/09/20 14:50 [From Hycodan (with homatropin)] hydrocodone Allergy Respiratory Verified 08/09/20 14:50 [From Hycodan (with homatropin)] lidocaine Allergy Hives Verified 08/09/20 14:50 neomycin Allergy Hives Verified 08/09/20 14:50 [From Triple Antibiotic] polymyxin B Allergy Hives Verified 08/09/20 14:50 [From Triple Antibiotic] zolpidem [From Ambien] Allergy Hallucinati Verified 08/09/20 14:50 ons Exam - Vital Signs Reviewed Vital Signs: Yes Vital Signs: Vital Signs x48h Temp Pulse Pulse Resp BP BP Pulse Ox 07/16/22 13:01 36.5 C 96 18 107/66 92 07/16/22 12:40 07/16/22 11:47 36 C L 92 26 H 107/55 L 88 L 07/16/22 10:30 99 26 H 113/82 H 90 L 07/16/22 09:43 101 H 28 H 108/70 92 07/16/22 08:29 99 14 100/46 L 88 L 07/16/22 07:46 93 28 H 92/59 L 93 07/16/22 07:20 101 H 25 H 114/73 92 07/16/22 07:14 98 22 O2 Flow Rate 07/16/22 13:01 4 07/16/22 12:40 4 07/16/22 11:47 4 07/16/22 10:30 4 07/16/22 09:43 6 07/16/22 08:29 4.5 07/16/22 07:46 6 07/16/22 07:20 6 07/16/22 07:14 - Physical Exam General Appearance: positive: No acute distress, Alert Eyes Bilateral: positive: EOMI ENT: positive: No signs of dehydration Neck: positive: No JVD, Trachea midline. negative: Stiff neck Respiratory: positive: Chest non-tender, No respiratory distress, Other (Reduced breath sounds throughout. Absent breath sounds in posterior R upper lobe. Crackles heard in anterior R upper lobe.) Cardiovascular: positive: Regular rate & rhythm (Heart sounds very faint due to obesity and pneumonia), No murmur, No gallop Skin: positive: Color nml, Warm, Dry, Other (Patient has abrasions on her knees from crawling on the floor yesterday after she fell) Conclusion/Plan - Problem List (1) Acute respiratory failure with hypoxia Conclusion/Plan: On 07/15, EMS arrived to find patient with a pulse ox of 78% on room air, which subsequently improved with 4L/min nasal cannula oxygen to 89-91%. During her ER stay, she required between 4-6L of supplemental oxygen. She does have COPD but at baseline does not use supplemental oxygen at home. She is currently on 4L of oxygen and O2 sat 92% Plan: Continue supplemental oxygen 4L/min Monitor O2 sat On her last day here, I will evaluate her to see if she needs home oxygen (2) Pneumonia Conclusion/Plan: Patient has right upper lobe pneumonia with mild left upper pneumonia. She took one dose of PO azithromycin 500 mg at home on 07/15. On 07/16, she was given azithromycin IV and started on ceftriaxone IV. CXR from 07/16: Right upper lobe consolidation compatible with lobar pneumonia CT chest w/ IV contrast from 07/16: Right upper lobe consolidation consistent with pneumonia. Mild pneumonia is also seen in the left upper lobe. Bilateral pleural effusions (small on the right and trace on the left). Mediastinal and hilar lymphadenopathy, most likely reactive in the setting of pneumonia. A 5 mm nodule found along the LEFT major fissure. Mild cardiomegaly with severe coronary atherosclerosis. Plan: Continue oxygen supplementation Continue IV azithromycin and ceftriaxone Continue guafenesin and albuterol Monitor O2 sat Qualifiers: Pneumonia type: due to unspecified organism Laterality: bilateral Lung location: upper lobe of lung Qualified Code(s): J18.9 - Pneumonia, unspecified organism (3) Hyponatremia Conclusion/Plan: This is likely hypovolemic hyponatremia due to not eating much in the last few weeks. Patient reports she has not been hungry because of grief after her . On admission, she was hyponatremic and her sodium level was 123. On 07/16, it has slightly improved to 126. Plan: Continue IV saline at a rate of 125 mls/hour Restrict free water consumption to 1800 mL daily Check sodium every 12 hours for a goal of 6-8 meq over 24 hours (4) Incidental lung nodule, > 3mm and < 8mm Conclusion/Plan: Though chest CT was initially ordered by the ER to rule out rib fractures from her fall, several lung findings were noted. These are especially concerning given the patient's extensive smoking history (56 years) Chest CT w/contrast from 07/16 found a 5 mm nodule along the LEFT major fissure. In addition, there was also mediastinal and hilar adenopathy, a 1.8 cm right paratracheal lymph node, a 1.3 cm clustered AP window lymph node, a 1.3 cm right hilar lymph node, and a 1 cm left hilar lymph node NOTE- Initial radiology report described a 5 mm right-sided nodule, however, it has subsequently been corrected to LEFT-sided nodule. I discussed these findings with the patient. Plan: Follow up CT recommended in 6-12 months. Then, again at 18-24 months if no change. Treat pneumonia with IV antibiotics (5) COPD with exacerbation Conclusion/Plan: Patient has a history of COPD likely due to her extensive smoking history (56 years). At baseline, she does not require supplemental oxygen; however, she has needed at least 4L/min of oxygen to keep her O2 sat in the low 90%. She has had two treatments with nebulized albuterol since admission. She has had significant improvement in her ability to breathe. Plan: Continue albuterol nebulizer treatments Continue supplemental oxygen 4L/min Monitor O2 sat (6) Tobacco abuse disorder Conclusion/Plan: She has been smoking since she was 21 years old and has never been able to quit despite multiple attempts, including hypnotherapy. She has, however, decreased from 3 packs daily to 8 cigarettes daily. She was very embarrassed to speak ab out her smoking habits in front of her family and even became tearful. Plan: Nicotine patch daily (7) PSVT (paroxysmal supraventricular tachycardia) Conclusion/Plan: On 07/16 at approximately 13:45, patient had a brief run of PSVT. I suspect this was caused by either her current lung disease, however I will also check for hyperthyroidism. Plan: Check thyroid function - Lab Results Fish Bones: 07/15/22 22:28 07/16/22 05:05 - Diagnostic Imaging Results Diagnostic Imaging Results: positive: Final report reviewed, Discussed with radiologist (CT Abdomen had conflicting information regarding heart size and location of lung nodule. Radiologist is working on fixing this) Diagnostic Imaging Results Comments: CXR Relevant Findings:: Right upper lobe consolidation compatible with lobar pneumonia CT chest with IV contrast Relevant Findings:: Right upper lobe consolidation consistent with pneumonia. mild pneumonia is also seeen in the left upper lobe. Bilateral pleural effusions (small on the right and trace on the left). Mediastinal and hilar lymphadenopathy, most likely reactive in the setting of pneumonia. Mild cardiomegaly with severe coronary atherosclerosis. - Also found in lungs: A 5 mm nodule along the right major fissure. Follow up CT recommended in 12 months. If no change, no further follow up needed. CT Head without IV contrast Relevant Findings:: No CT evidence of acute intracranial abnormalities. No acute skull fracture. Age-related volume loss and mild white matter chronic small vessel ischemic changes
[2022-07-16] MEDS: ALBUTEROL NEB 2.5 MG/3 ML INH SCH ×2 (15:49→20:00)
[2022-07-16] MEDS: NICOTINE 14 MG PATCH TOP SCH (16:30)
--- NOTE | 2022-07-16 18:21 | PHARMACY PROGRESS NOTE ---
- Best Possible Medication History Admit Date and Time: 07/16/22 1122 Processed by: Pharmacy Medication History completed: Yes Patient Interview: Pt unable to participate Secondary Source(s): Physician records, Pharmacy records, Insurance records As the person ultimately responsible for medication therapy, providers are able to order a medication from an existing home medication list in [facility] via the "Reconcile Routine" prior to Confirmation of that medication by clinical support manager. Such practice is discouraged except when the physician, in their clinical judgment, deems that a medical need exists for a medication without regard to previous use.
[2022-07-16] MEDS: SODIUM CHLORIDE FLUSH 0.9% 10 ML SYRINGE IVP SCH (19:47)
[2022-07-16] MEDS: guaiFENesin 600 MG TABLET PO SCH (21:44)
[2022-07-17] MEDS: SODIUM CHLORIDE FLUSH 0.9% 10 ML SYRINGE IVP SCH ×3 (00:12→16:05)
[2022-07-17] MEDS: ACETAMINOPHEN 325 MG TABLET PO PRN ×3 (02:31→20:50)
[2022-07-17 05:09] LABS: BASOPHILS % (AUTO) 0.9 %; HCT - HEMATOCRIT 38.6 % (37.0-47.0); HGB - HEMOGLOBIN 13.8 g/dL (12.0-16.0); LYMPHOCYTES % (AUTO) 5.1 %; MEAN CORPUSCULAR HEMOGLOBIN 37.2 pg (27.0-31.0); MEAN CORPUSCULAR HGB CONC 35.8 g/dL (32.0-36.0); MONOCYTES % (AUTO) 2.3 %; NEUTROPHILS % (AUTO) 89.7 %; PLT - PLATELET COUNT 210 10^3/uL (130-450); RED BLOOD COUNT 3.71 10^6/uL (4.20-5.40); RED CELL DISTRIBUTION WIDTH 13.6 % (12.0-15.0); WHITE BLOOD COUNT 10.9 x10^3/uL (4.8-10.8)
[2022-07-17 05:20] LABS: ABNORMAL LYMPHS % (MANUAL) 0 %
[2022-07-17 05:33] LABS: BAND NEUTROPHILS % (MANUAL) 3 %; DIFFERENTIAL COMMENT MANUAL DIFFERENTIAL; LYMPHOCYTES # (MANUAL) 0.5 10^3/uL (1.5-3.5); LYMPHOCYTES % (MANUAL) 5 %; MONOCYTES # (MANUAL) 0.2 10^3/uL (0.0-1.0); MYELOCYTES % (MANUAL) 2 %; NEUTROPHILS # (MANUAL) 9.9 10^3/uL (1.5-6.6); PLATELET ESTIMATE, MANUAL NORMAL (130-450,000) (NORMAL); PLATELET MORPHOLOGY NORMAL APPEARANCE (NORMAL); RBC MORPHOLOGY (MULTIPLE) 1+ MACROCYTOSIS (NORMAL); WBC MORPHOLOGY (MULTIPLE) NORMAL APPEARANCE (NORMAL)
[2022-07-17 05:40] LABS: CALCIUM 8.2 mg/dL (8.5-10.3); CREATININE 0.4 mg/dL (0.4-1.0)
[2022-07-17] MEDS: SODIUM CHLORIDE 0.9% 1,000 ML IV SCH ×3 (06:46→19:33)
[2022-07-17] MEDS: ALBUTEROL NEB 2.5 MG/3 ML INH SCH ×4 (08:42→20:40)
[2022-07-17] MEDS: ENOXAPARIN 40 MG/0.4 ML SYRINGE SUBQ SCH (09:02)
[2022-07-17] MEDS: guaiFENesin 600 MG TABLET PO SCH ×2 (09:02→20:44)
[2022-07-17] MEDS: NICOTINE 14 MG PATCH TOP SCH (09:02)
[2022-07-17] MEDS: cefTRIAXone 2 GM in SODIUM CHLORIDE 0.9% MINIBAG 100 ML IV SCH (09:02)
[2022-07-17] MEDS: AZITHROMYCIN INJ 500 MG in SODIUM CHLORIDE 0.9% 250 ML IV SCH (09:50)
--- NOTE | 2022-07-17 12:03 | PROVIDER PROGRESS NOTE ---
Assessment/Plan - Problem List (1) Acute respiratory failure with hypoxia Assessment/Plan: On 07/15, EMS arrived to find patient with a pulse ox of 78% on room air, which subsequently improved with 4L/min nasal cannula oxygen to 89-91%. During her ER stay, she required between 4-6L of supplemental oxygen. She does have COPD but at baseline does not use supplemental oxygen at home. She is currently on 4L of oxygen and O2 sat 95% Plan: Continue supplemental oxygen 4L/min Monitor O2 sat On her last day here, I will evaluate her to see if she needs home oxygen (2) Pneumonia Conclusion/Plan: Patient has right upper lobe pneumonia with mild left upper pneumonia. She took one dose of PO azithromycin 500 mg at home on 07/15. On 07/16, she was given azithromycin IV and started on ceftriaxone IV. CXR from 07/16: Right upper lobe consolidation compatible with lobar pneumonia CT chest w/ IV contrast from 07/16: Right upper lobe consolidation consistent with pneumonia. Mild pneumonia is also seen in the left upper lobe. Bilateral pleural effusions (small on the right and trace on the left). Mediastinal and hilar lymphadenopathy, most likely reactive in the setting of pneumonia. A 5 mm nodule found along the LEFT major fissure. Mild cardiomegaly with severe coronary atherosclerosis. Plan: Continue oxygen supplementation Continue IV azithromycin and ceftriaxone Continue guafenesin and albuterol Monitor O2 sat Qualifiers: Pneumonia type: due to unspecified organism Laterality: bilateral Lung location: upper lobe of lung Qualified Code(s): J18.9 - Pneumonia, unspecified organism (3) Hyponatremia Conclusion/Plan: This is likely hypovolemic hyponatremia due to not eating much in the last few weeks. Patient reports she has not been hungry because of grief after her . On admission, she was hyponatremic and her sodium level was 123. On 07/17, it has improved to 128. When I went to visit with the patient on 07/17, she did not remember that we had a lengthy conversation yesterday about her late . This is likely due to her low sodium levels yesterday. Plan: Continue fluids, but decrease IV fluid rate because of concern for volume overload Restrict free water consumption to 1800 mL daily Check sodium every 12 hours for a goal of 6-8 meq over 24 hours Check BNP (4) Incidental lung nodule, > 3mm and < 8mm Conclusion/Plan: Though chest CT was initially ordered by the ER to rule out rib fractures from her fall, several lung findings were noted. These are especially concerning given the patient's extensive smoking history ([address] years) Chest CT w/contrast from 07/16 found a 5 mm nodule along the LEFT major fissure. In addition, there was also mediastinal and hilar adenopathy, a 1.8 cm right paratracheal lymph node, a 1.3 cm clustered AP window lymph node, a 1.3 cm right hilar lymph node, and a 1 cm left hilar lymph node NOTE- Initial radiology report described a 5 mm right-sided nodule, however, it has subsequently been corrected to LEFT-sided nodule. I discussed these findings with the patient, and she expressed understanding. The next morning on 07/17, the nurse reported that the patient was very anxious and worrying about what will happen to her disabled son when she passes away. Plan: Follow up CT recommended in 6-12 months. Then, again at 18-24 months if no change. Treat pneumonia with IV antibiotics which could help with the adenopathy (5) COPD with exacerbation Conclusion/Plan: Patient has a history of COPD likely due to her extensive smoking history (58 y ears) and being a "chain smoker". At baseline, she does not require supplemental oxygen; however, she has needed at least 4L/min of oxygen to keep her O2 sat in the low 90%. She has had 4 treatments with nebulized albuterol since admission. She has had significant improvement in her ability to breathe, but is still very short of breath when walking. Plan: Continue albuterol nebulizer treatments Continue supplemental oxygen 4L/min Monitor O2 sat (6) Iatrogenic hyperthyroidism Assessment/Plan: Patient has a history of hypothyroidism for which she takes levothyroxine 125 mcg at home. She has not been on this medication during her stay here. On 07/17, we discovered that her TSH was <0.08. I believe the patient is over treating herself with her levothyroxine, especially now that she is down 30 pounds. Her current hyperthyroidism could be contributing to many of her symptoms including anxiety, brief episode of PSVT, dyspnea, weight loss, and confusion. Plan: Continue to hold levothyroxine Patient to discuss with PCP about her new dose of levothyroxine (7) Tobacco abuse disorder Conclusion/Plan: She has been smoking since she was 21 years old and has never been able to quit despite multiple attempts, including hypnotherapy. She has decreased from 3 packs daily to ~8 cigarettes daily over time. She was very embarrassed to speak about her smoking habits in front of her family and even became tearful when speaking about it. On 07/17, she described herself as being a "chain smoker" in the past. She also admitted to us that she has been smoking more since her to help manage her grief. Plan: Nicotine patch daily (8) PSVT (paroxysmal supraventricular tachycardia) Conclusion/Plan: RESOLVED On 07/16 at approximately 13:45, patient had a brief run of PSVT. I suspect this was caused by her current lung disease, however I will also check for hyperthy roidism. On 07/17, her TSH was <0.08. Plan: Monitor for any changes Continue telemetry (2) Iatrogenic hyperthyroidism Assessment/Plan: Patient has a history of hypothyroidism for which she takes levothyroxine 125 mcg at home. She has not been on this medication during her stay here. On 07/17, we discovered that her TSH was <0.08. I believe the patient is over treating herself with her levothyroxine, especially now that she is down 30 pounds. Her current hyperthyroidism could be causing her anxiety, brief episode of PSVT, dyspnea, weight loss, and confusion. Plan: Hold levothyroxine Patient to discuss with PCP about her new dose of levothyroxine - Current Meds Current Meds: Current Medications Generic Name Dose Route Start Last Admin Trade Name Freq PRN Reason Stop Dose Admin Acetaminophen 650 mg 07/16/22 11:22 07/17/22 02:31 Acetaminophen 325 Mg Tablet PO 650 mg Q4HR PRN Administration Pain 1 to 4, or Fever Albuterol 2.5 mg 07/16/22 15:00 07/17/22 08:42 Albuterol Neb 2.5 Mg/3 Ml INH 2.5 mg RTQID DARREN Administration Enoxaparin Sodium 40 mg 07/16/22 12:00 07/17/22 09:02 Enoxaparin 40 Mg/0.4 Ml Syringe SUBQ 40 mg DAILY DARREN Administration Guaifenesin 600 mg 07/16/22 21:00 07/17/22 09:02 Guaifenesin 600 Mg Tablet PO 600 mg BID DARREN Administration Sodium Chloride 1,000 mls @ 125 mls/hr 07/16/22 12:00 07/17/22 06:46 Normal Saline 0.9% IV 125 mls/hr .Q8H DARREN Administration Azithromycin 500 mg/ Sodium 250 mls @ 250 mls/hr 07/17/22 09:00 07/17/22 09:50 Chloride IV 07/19/22 00:01 250 mls/hr DAILY DARREN Administration Ceftriaxone Sodium 2 gm/ 100 mls @ 200 mls/hr 07/17/22 09:00 07/17/22 11:28 Sodium Chloride IV Infused DAILY DARREN Infusion Nicotine 1 patch 07/16/22 16:09 07/17/22 09:02 Nicotine 14 Mg Patch TOP 1 patch DAILY DARREN Administration Sodium Chloride 10 ml 07/16/22 17:00 07/17/22 09:03 Sodium Chloride Flush 0.9% 10 Ml Syringe IVP 10 ml 0100,[id number],1700 DARREN Administration - Lab Result Fish Bone Diagrams: 07/17/22 04:45 07/17/22 04:45 Subjective - Subjective Patient Reports: Feeling Better, Cough (Very wet-sounding cough, but patient is not able to get much mucus out), Shortness of Breath (Patient is especially SOB with exertion and going to the bathroom), Other (Pt had an episode of visual disturbances last night and reported seeing tigers and lions. This has never happened to her before. She also did not remember that I had seen her the previous day and she had a whole conversation with me) Objective Vital Signs: Vital Signs - 24 hr 07/16/22 07/16/22 07/16/22 11:47 12:40 13:01 Temperature 36 C L 36.5 C Heart Rate 92 Heart Rate [ Brachial] Heart Rate [ 96 Radial] Respiratory 26 H 18 Rate Blood Pressure 107/55 L Blood Pressure 107/66 [Left Brachial artery] O2 Saturation 88 L 92 If not protocol 4 4 4 : Oxygen Flow, liters/minute 07/16/22 07/16/22 07/16/22 15:54 17:00 20:00 Temperature 36.3 C L Heart Rate 91 92 Heart Rate [ Brachial] Heart Rate [ 88 Radial] Respiratory 20 20 20 Rate Blood Pressure Blood Pressure 114/62 [Left Brachial artery] O2 Saturation 93 If not protocol 4 4 4 : Oxygen Flow, liters/minute 07/16/22 07/17/22 07/17/22 21:45 00:15 04:28 Temperature 36.5 C 36.3 C L 36.5 C Heart Rate Heart Rate [ Brachial] Heart Rate [ 84 92 89 Radial] Respiratory 22 20 18 Rate Blood Pressure Blood Pressure 100/57 L 114/66 129/83 H [Left Brachial artery] O2 Saturation 92 92 92 If not protocol 4 4 4 : Oxygen Flow, liters/minute 07/17/22 07/17/22 08:37 08:43 Temperature 36.4 C L Heart Rate 92 Heart Rate [ 92 Brachial] Heart Rate [ Radial] Respiratory 20 16 Rate Blood Pressure Blood Pressure 131/79 H [Left Brachial artery] O2 Saturation 92 If not protocol 4 4 : Oxygen Flow, liters/minute Oxygen O2 Source Nasal cannula I&O (Last 24 Hrs): Intake and Output Totals x24h 07/15/22 07/16/22 07/17/22 23:59 23:59 23:59 Intake Total 4415.833 1314.167 Output Total 620 Balance 4415.833 694.167 General: Alert, Oriented x3, Cooperative, No acute distress Neuro: Alert Cardiovascular: Regular rate, No murmurs, Gallops, Other (Heart sounds faint due to body habitus and pneumonia) Respiratory: Chest non-tender, No respiratory distress, Wheezes, Other (Breath sounds improved from yesterday, shallow breaths, fine crackles in upper right lobe.) Abdomen: Other (obesity) Extremities: No edema, No tenderness/swelling Comments/Notes: Patient has abrasions on her knees from crawling on the floor of her house after she fell - Results Results: Laboratory Results WBC 10.9 x10^3/uL (4.8-10.8) H 07/17/22 04:45 RBC 3.71 10^6/uL (4.20-5.40) L 07/17/22 04:45 Hgb 13.8 g/dL (12.0-16.0) 07/17/22 04:45 Hct 38.6 % (37.0-47.0) 07/17/22 04:45 MCV 104.0 fL (81.0-99.0) H 07/17/22 04:45 MCH 37.2 pg (27.0-31.0) H 07/17/22 04:45 MCHC 35.8 g/dL (32.0-36.0) 07/17/22 04:45 RDW 13.6 % (12.0-15.0) 07/17/22 04:45 Plt Count 210 10^3/uL (130-450) 07/17/22 04:45 MPV 9.0 fL (7.9-10.8) 07/17/22 04:45 Neut # (Auto) Not Reportable 07/17/22 04:45 Lymph # (Auto) Not Reportable 07/17/22 04:45 [place]ard # (Auto) Not Reportable 07/17/22 04:45 Eos # (Auto) Not Reportable 07/17/22 04:45 Baso # (Auto) Not Reportable 07/17/22 04:45 Absolute Nucleated RBC Not Reportable 07/17/22 04:45 Total Counted 100 07/17/22 04:45 Band Neuts % (Manual) 3 % (0-10) 07/17/22 04:45 Abnorm Lymph % (Manual) 0 % 07/17/22 04:45 Myelocytes % 2 % (-0) H 07/17/22 04:45 Nucleated RBC % Not Reportable 07/17/22 04:45 Neutrophils # (Manual) 9.9 10^3/uL (1.5-6.6) H 07/17/22 04:45 Lymphocytes # (Manual) 0.5 10^3/uL (1.5-3.5) L 07/17/22 04:45 Monocytes # (Manual) 0.2 10^3/uL (0.0-1.0) 07/17/22 04:45 Eosinophils # (Manual) 0.0 10^3/uL (0-0.7) 07/17/22 04:45 Basophils # (Manual) 0.0 10^3/uL (0-0.1) 07/17/22 04:45 Differential Comment MANUAL DIFFERENTIAL 07/17/22 04:45 WBC Morphology NORMAL APPEARANCE (NORMAL) 07/17/22 04:45 Platelet Estimate NORMAL (130-450,000) (NORMAL) 07/17/22 04:45 Platelet Morphology NORMAL APPEARANCE (NORMAL) 07/17/22 04:45 RBC Morph Micro Appear 1+ MACROCYTOSIS (NORMAL) 07/17/22 04:45 Sodium 128 mmol/L (135-145) L 07/17/22 04:45 Potassium 4.0 mmol/L (3.5-5.0) 07/17/22 04:45 Chloride 99 mmol/L (101-111) L 07/17/22 04:45 Carbon Dioxide 25 mmol/L (21-32) 07/17/22 04:45 Anion Gap 4.0 (6-13) L 07/17/22 04:45 BUN 19 mg/dL (6-20) 07/17/22 04:45 Creatinine 0.4 mg/dL (0.4-1.0) 07/17/22 04:45 Estimated GFR (MDRD) 156 (>89) 07/17/22 04:45 Glucose 135 mg/dL (70-100) H 07/17/22 04:45 Lactic Acid 1.8 mmol/L (0.5-2.2) 07/16/22 00:42 Calcium 8.2 mg/dL (8.5-10.3) L 07/17/22 04:45 Total Bilirubin 1.0 mg/dL (0.2-1.0) 07/15/22 22:28 AST 36 IU/L (10-42) 07/15/22 22:28 ALT 24 IU/L (10-60) 07/15/22 22:28 Alkaline Phosphatase 134 IU/L (42-121) H 07/15/22 22:28 Total Protein 5.4 g/dL (6.7-8.2) L 07/15/22 22:28 Albumin 2.4 g/dL (3.2-5.5) L 07/15/22 22:28 Globulin 3.0 g/dL (2.1-4.2) 07/15/22 22:28 Albumin/Globulin Ratio 0.8 (1.0-2.2) L 07/15/22 22:28 Lipase 28 U/L (22-51) 07/15/22 22:28 TSH < 0.08 uIU/mL (0.34-5.60) L 07/17/22 04:45 Urine Color YELLOW 07/16/22 00:12 Urine Clarity CLEAR (CLEAR) 07/16/22 00:12 Urine pH 5.5 PH (5.0-7.5) 07/16/22 00:12 Ur Specific Boyd 1.025 (1.002-1.030) 07/16/22 00:12 Urine Protein NEGATIVE mg/dL (NEGATIVE) 07/16/22 00:12 Urine Glucose (UA) NEGATIVE mg/dL (NEGATIVE) 07/16/22 00:12 Urine Ketones NEGATIVE mg/dL (NEGATIVE) 07/16/22 00:12 Urine Occult Blood NEGATIVE (NEGATIVE) 07/16/22 00:12 Urine Nitrite NEGATIVE (NEGATIVE) 07/16/22 00:12 Urine Bilirubin NEGATIVE (NEGATIVE) 07/16/22 00:12 Urine Urobilinogen 2 E.U./dL (NORMAL) H 07/16/22 00:12 Ur Leukocyte Esterase NEGATIVE (NEGATIVE) 07/16/22 00:12 Ur Microscopic Review NOT INDICATED 07/16/22 00:12 Urine Culture Comments NOT INDICATED 07/16/22 00:12 Nasal Adenovirus (PCR) NOT DETECTED 07/15/22 22:42 Nasal B. parapertussis DNA (PCR) NOT DETECTED 07/15/22 22:42 Nasal Coronavir 229E PCR NOT DETECTED 07/15/22 22:42 Nasal Coronavir HKU1 PCR NOT DETECTED 07/15/22 22:42 Nasal Coronavir NL63 PCR NOT DETECTED 07/15/22 22:42 Nasal Coronavir OC43 PCR NOT DETECTED 07/15/22 22:42 Nasal Enterovir/Rhinovir PCR NOT DETECTED 07/15/22 22:42 Nasal Influenza B PCR NOT DETECTED 07/15/22 22:42 Nasal Influenza A PCR NOT DETECTED 07/15/22 22:42 Nasal Parainfluen 1 PCR NOT DETECTED 07/15/22 22:42 Nasal Parainfluen 2 PCR NOT DETECTED 07/15/22 22:42 Nasal Parainfluen 3 PCR NOT DETECTED 07/15/22 22:42 Nasal Parainfluen 4 PCR NOT DETECTED 07/15/22 22:42 Nasal RSV (PCR) NOT DETECTED 07/15/22 22:42 Nasal B.pertussis DNA PCR NOT DETECTED 07/15/22 22:42 Nasal C.pneumoniae (PCR) NOT DETECTED 07/15/22 22:42 Curtis Human Metapneumo PCR NOT DETECTED 07/15/22 22:42 Nasal M.pneumoniae (PCR) NOT DETECTED 07/15/22 22:42 Nasal SARS-CoV-2 (PCR) NOT DETECTED 07/15/22 22:42 - Procedures Procedures: Procedures REPLACEMENT OF RIGHT LENS WITH SYNTH SUB, PERC APPROACH (05/27/19) ABX Reporting Has patient been on IV antibiotics over the past 48 hours?: Yes
[2022-07-17] MEDS: CALCIUM CARBONATE CHEW 500 MG TABLET PO PRN ×2 (16:39→20:50)
[2022-07-18] MEDS: SODIUM CHLORIDE FLUSH 0.9% 10 ML SYRINGE IVP SCH ×3 (01:57→16:54)
[2022-07-18 05:31] LABS: CALCIUM 8.7 mg/dL (8.5-10.3); CREATININE 0.3 mg/dL (0.4-1.0); POTASSIUM 4.2 mmol/L (3.5-5.0)
[2022-07-18 05:43] LABS: BASOPHILS % (AUTO) 0.2 %; HGB - HEMOGLOBIN 13.9 g/dL (12.0-16.0); LYMPHOCYTES % (AUTO) 4.6 %; MEAN CORPUSCULAR HEMOGLOBIN 37.9 pg (27.0-31.0); MEAN CORPUSCULAR HGB CONC 36.6 g/dL (32.0-36.0); MEAN CORPUSCULAR VOLUME 103.5 fL (81.0-99.0); MEAN PLATELET VOLUME 9.3 fL (7.9-10.8); MONOCYTES % (AUTO) 2.6 %; NEUTROPHILS % (AUTO) 87.3 %; PLT - PLATELET COUNT 197 10^3/uL (130-450); RED BLOOD COUNT 3.67 10^6/uL (4.20-5.40); RED CELL DISTRIBUTION WIDTH 14.1 % (12.0-15.0); WHITE BLOOD COUNT 12.1 x10^3/uL (4.8-10.8)
[2022-07-18 05:45] LABS: ABNORMAL LYMPHS % (MANUAL) 0 %
[2022-07-18 05:50] LABS: BAND NEUTROPHILS % (MANUAL) 7 %; DIFFERENTIAL COMMENT MANUAL DIFFERENTIAL; EOSINOPHILS # (MANUAL) 0.1 10^3/uL (0-0.7); LYMPHOCYTES # (MANUAL) 1.3 10^3/uL (1.5-3.5); LYMPHOCYTES % (MANUAL) 11 %; METAMYELOCYTES % (MANUAL) 1 %; MONOCYTES # (MANUAL) 0.8 10^3/uL (0.0-1.0); MYELOCYTES % (MANUAL) 1 %; NEUTROPHILS # (MANUAL) 9.6 10^3/uL (1.5-6.6); PLATELET ESTIMATE, MANUAL NORMAL (130-450,000) (NORMAL); RBC MORPHOLOGY (MULTIPLE) NORMAL APPEARANCE (NORMAL)
[2022-07-18] MEDS: SODIUM CHLORIDE 0.9% 1,000 ML IV SCH (07:41)
[2022-07-18] MEDS: cefTRIAXone 2 GM in SODIUM CHLORIDE 0.9% MINIBAG 100 ML IV SCH (07:42)
[2022-07-18] MEDS: ACETAMINOPHEN 325 MG TABLET PO PRN (07:42)
[2022-07-18] MEDS: AZITHROMYCIN INJ 500 MG in SODIUM CHLORIDE 0.9% 250 ML IV SCH (07:42)
[2022-07-18] MEDS: guaiFENesin 600 MG TABLET PO SCH (07:43)
[2022-07-18] MEDS: ENOXAPARIN 40 MG/0.4 ML SYRINGE SUBQ SCH (07:43)
[2022-07-18] MEDS: NICOTINE 14 MG PATCH TOP SCH (07:43)
[2022-07-18] MEDS: ALBUTEROL NEB 2.5 MG/3 ML INH SCH ×3 (07:44→16:13)
[2022-07-18] MEDS ORDERED: LORazepam 2 MG/ML VIAL IVP PRN (10:18)
--- NOTE | 2022-07-18 10:23 | PROVIDER PROGRESS NOTE ---
Assessment/Plan - Problem List (1) Alcohol withdrawal Assessment/Plan: The night of 07/16, the patient reported visual hallucinations of lions and tigers in her room. Initially we believed this was a result of hyponatremia and iatrogenic hyperthyroidism. Throughout the night of 07/17 until 08:00, the patient believed she was on a ship going to [place] all night and was very anxious. She even sent multiple lengthy texts to her son about how she was on a boat. Furthermore, she also assigned nicknames to all the nursing staff, such as 'cinda rodriguez', 'the head master', and 'cinda flower'. Due to my suspicion for alcohol withdrawal and high MCV, I ordered a CIWA score which was 14. Initially, the patient did not report alcohol use. However, after speaking with her son Ha separately on 07/18, he reports that she has been mixing cheap boxed wine and more expensive bottled wine in an old orange juice container. She then mixes this concoction with toy sophie. She drinks from noon until she goes to sleep. Ha estimates that she drinks 1.5L of wine daily. The patient herself has not admitted to her alcohol habits and was even embarrassed to admit her 50+ years smoking habits on admission. Around 14:00 on 07/18, the patient became even more confused and agitated. She was not speaking coherently and was not oriented to place or time. I ordered a head CT on 07/18 to rule out CVA. Head CT found: No acute in tracranial abnormality ABG was drawn Plan: Thiamine supplementation started JOAN ortiz, ativan 1 mg (2) Acute respiratory failure with hypoxia Assessment/Plan: On 07/15, EMS arrived to find patient with a pulse ox of 78% on room air, which subsequently improved with 4L/min nasal cannula oxygen to 89-91%. During her ER stay, she required between 4-6L of supplemental oxygen. She does have COPD but at baseline does not use supplemental oxygen at home. On 07/18, the patient went into alcohol withdrawal. Her O2 sat was 88% on 4L nasal cannula. She was then placed on an oxygen mask with 12L/min oxygen. This brought her O2 sat up to 94%. At 13:55, the patient develop respiratory distress, became tachypneic (rate of 32), tachycardic (102), and was placed on a non-rebreather mask. Her current O2 sat is 96% Plan: Continue supplemental oxygen 12L/min Monitor O2 sat On her last day here, I will evaluate her to see if she needs home oxygen (3) Pneumonia Conclusion/Plan: Patient has right upper lobe pneumonia with mild left upper pneumonia. She took one dose of PO azithromycin 500 mg at home on 07/15. On 07/16, she was given azithromycin IV and started on ceftriaxone IV. CXR from 07/16: Right upper lobe consolidation compatible with lobar pneumonia CT chest w/ IV contrast from 07/16: Right upper lobe consolidation consistent with pneumonia. Mild pneumonia is also seen in the left upper lobe. Bilateral pleural effusions (small on the right and trace on the left). Mediastinal and hilar lymphadenopathy, most likely reactive in the setting of pneumonia. A 5 mm nodule found along the LEFT major fissure. Mild cardiomegaly with severe coronary atherosclerosis. Plan: Continue oxygen supplementation Continue IV azithromycin and ceftriaxone Continue guafenesin and albuterol Monitor O2 sat Qualifiers: Pneumonia type: due to unspecified organism Laterality: bilateral Lung location: upper lobe of lung Qualified Code(s): J18.9 - Pneumonia, unspecified organism (4) Hyponatremia Conclusion/Plan: This is likely hypovolemic hyponatremia due to not eating much in the last few weeks and also alcohol abuse. Patient reports she has not been hungry because of grief after her . On admission, she was hyponatremic and her sodium level was 123. On 07/17, it has improved to 128. When I went to visit with the patient on 07/17, she did not remember that we had a lengthy conversation yesterday about her late . Initially, I thought this was due to her low sodium levels yesterday. On 07/18, her BNP came back high at 229. Her sodium increased to 132. She is eating well, therefore I will stop her IV fluids. Plan: Stopped IVF No more restriction of free water Check sodium every 12 hours for a goal of 6-8 meq over 24 hours Check BNP (5) Incidental lung nodule, > 3mm and < 8mm Conclusion/Plan: Though chest CT was initially ordered by the ER to rule out rib fractures from her fall, several lung findings were noted. These are especially concerning given the patient's extensive smoking history (56 years) Chest CT w/contrast from 07/16 found a 5 mm nodule along the LEFT major fissure. In addition, there was also mediastinal and hilar adenopathy, a 1.8 cm right paratracheal lymph node, a 1.3 cm clustered AP window lymph node, a 1.3 cm right hilar lymph node, and a 1 cm left hilar lymph node NOTE- Initial radiology report described a 5 mm right-sided nodule, however, it has subsequently been corrected to LEFT-sided nodule. I discussed these findings with the patient, and she expressed understanding. The next morning on 07/17, the nurse reported that the patient was very anxious and worrying about what will happen to her disabled son when she passes away. Plan: Follow up CT recommended in 6-12 months. Then, again at 18-24 months if no change. Treat pneumonia with IV antibiotics which could help with the adenopathy (6) COPD with exacerbation Conclusion/Plan: Patient has a history of COPD likely due to her extensive smoking history (56 years) and being a "chain smoker". At baseline, she does not require supplemental oxygen; however, she has needed at least 4L/min of oxygen to keep her O2 sat in the low 90%. Initially, nebulized albuterol treatments resulted in significant improvement in her ability to breathe, but is still very short of breath when walking. On 07/18, her breathing worsened due to alcohol withdrawal. She dropped to 88% O2 sat on 4L nasal cannula. She was then placed on an oxygen mask with 12L/min oxygen. This brought her O2 sat up to 94%. Plan: Continue albuterol nebulizer treatments Continue supplemental oxygen 12L/min Monitor O2 sat (7) Iatrogenic hyperthyroidism Assessment/Plan: Patient has a history of hypothyroidism for which she takes levothyroxine 125 mcg at home. She has not been on this medication during her stay here. On 07/17, we discovered that her TSH was <0.08. I believe the patient is over treating herself with her levothyroxine, especially now that she is down 30 pounds. Her current hyperthyroidism could be contributing to many of her symptoms including anxiety, brief episode of PSVT, dyspnea, weight loss, and confusion. Plan: Decrease levothyroxine dose to 112 mcg (8) Tobacco abuse disorder Conclusion/Plan: She has been smoking since she was 21 years old and has never been able to quit despite multiple attempts, including hypnotherapy. She has decreased from 3 packs daily to ~8 cigarettes daily over time. She was very embarrassed to speak about her smoking habits in front of her family and even became tearful when speaking about it. On 07/17, she described herself as being a "chain smoker". She also admitted to us that she has been smoking more since her to help manage her grief. Plan: Nicotine patch daily (9) PSVT (paroxysmal supraventricular tachycardia) Conclusion/Plan: RESOLVED On 07/16 at approximately 13:45, patient had a brief run of PSVT. I suspect this was caused by her current lung disease, however I will also check for hyperthyroidism. On 07/17, her TSH was <0.08, indicating overtreatment with her levothyroxine. Plan: Monitor for any changes Continue telemetry - Current Meds Current Meds: Current Medications Generic Name Dose Route Start Last Admin Trade Name Freq PRN Reason Stop Dose Admin Acetaminophen 650 mg 07/16/22 11:22 07/18/22 07:42 Acetaminophen 325 Mg Tablet PO 650 mg Q4HR PRN Administration Pain 1 to 4, or Fever Albuterol 2.5 mg 07/16/22 15:00 07/18/22 07:44 Albuterol Neb 2.5 Mg/3 Ml INH 2.5 mg RTQID DARREN Administration Calcium Carbonate/Glycine 500 mg 07/17/22 16:14 07/17/22 20:50 Calcium Carbonate Chew 500 Mg Tablet PO 500 mg TID PRN Administration INDIGESTION Enoxaparin Sodium 40 mg 07/16/22 12:00 07/18/22 07:43 Enoxaparin 40 Mg/0.4 Ml Syringe SUBQ 40 mg DAILY DARREN Administration Guaifenesin 600 mg 07/16/22 21:00 07/18/22 07:43 Guaifenesin 600 Mg Tablet PO 600 mg BID DARREN Administration Azithromycin 500 mg/ Sodium 250 mls @ 250 mls/hr 07/17/22 09:00 07/18/22 07:42 Chloride IV 07/19/22 00:01 250 mls/hr DAILY DARREN Administration Ceftriaxone Sodium 2 gm/ 100 mls @ 200 mls/hr 07/17/22 09:00 07/18/22 09:42 Sodium Chloride IV Infused DAILY DARREN Infusion Nicotine 1 patch 07/16/22 16:09 07/18/22 07:43 Nicotine 14 Mg Patch TOP 1 patch DAILY DARREN Administration Sodium Chloride 10 ml 07/16/22 17:00 07/18/22 07:44 Sodium Chloride Flush 0.9% 10 Ml Syringe IVP 10 ml 0100,0900,1700 DARREN Administration - Lab Result Fish Bone Diagrams: 07/18/22 05:08 07/18/22 05:08 - Diagnostic Imaging Results Diagnostic Imaging Results Comments: Head CT 07/18: No acute intracranial abnormality CXR 07/16: Right upper lobe consolidation compatible with lobar pneumonia CT chest w/contrast 07/16: Right upper lobe consolidation consistent with pneumonia. mild pneumonia is also seeen in the left upper lobe. Bilateral pleural effusions (small on the right and trace on the left). Mediastinal and hilar lymphadenopathy, most likely reactive in the setting of pneumonia. Mild cardiomegaly with severe coronary atherosclerosis. - Also found in lungs: A 5 mm nodule along the LEFT major fissure. Follow up CT recommended in 12 months. If no change, no further follow up needed. CT Head w/o contrast 07/16: No CT evidence of acute intracranial abnormalities. No acute skull fracture. Age-related volume loss and mild white matter chronic small vessel ischemic changes <Cande Lebron - Last Filed: 07/18/22 18:32> - Problem List (2) Alcohol withdrawal delirium Assessment/Plan: The night of 07/16, the patient reported visual hallucinations of lions and tigers in her room. Initially we believed this was a result of hyponatremia and iatrogenic hyperthyroidism. Throughout the night of 07/17 until 08:00, the patient believed she was on a ship going to [place] all night and was very anxious. She even sent multiple lengthy texts to her son about how she was on a boat. Furthermore, she also assigned nicknames to all the nursing staff, such as 'cinda rodriguez', 'the head master', and 'tiny flower'. Due to my suspicion for alcohol withdrawal and high MCV, I ordered a CIWA score which was 14. Initially, the patient did not report alcohol use. However, after speaking with her son Ha naranjo on 07/18, he reports that she has been mixing cheap boxed wine and more expensive bottled wine in an old orange juice container. She then mixes this concoction with toy sophie. She drinks from noon until she goes to sleep. Ha estimates that she drinks 1.5L of wine daily. The patient herself has not admitted to her alcohol habits and was even embarrassed to admit her 50+ years smoking habits on admission. Around 14:00 on 07/18, the patient became even more confused and agitated. She was not speaking coherently and was not oriented to place or time. I ordered a head CT on 07/18 to rule out CVA. Head CT found: No acute intracranial abnormality ABG was drawn Plan: Thiamine supplementation started CIWA protocal, ativan 1 mg (2) Acute respiratory failure with hypoxia Assessment/Plan: On 07/15, EMS arrived to find patient with a pulse ox of 78% on room air, which subsequently improved with 4L/min nasal cannula oxygen to 89-91%. During her ER stay, she required between 4-6L of supplemental oxygen. She does have COPD but at baseline does not use supplemental oxygen at home. On 07/18, the patient went into alcohol withdrawal. Her O2 sat was 88% on 4L nasal cannula. She was then placed on an oxygen mask with 12L/min oxygen. This brought her O2 sat up to 94%. At 13:55, the patient develop respiratory distress, became tachypneic (rate of 32), tachycardic (102), and was placed on a non-rebreather mask. Her current O2 sat is 96% 3) On mechanically assisted ventilation Critical care time spent: 65 minutes (starting CIWA protocol IV Ativan, transferring to ICU, starting IV Ativan drip, evaluating labs, ordering ABG, reevaluating patient, ordering intubation, reevaluating patient, changing meds, Call to son Ha to update him on her critical status). (3) Pneumonia Conclusion/Plan: Patient has right upper lobe pneumonia with mild left upper pneumonia. She took one dose of PO azithromycin 500 mg at home on 07/15. On 07/16, she was given jonathan thromycin IV and started on ceftriaxone IV. CXR from 07/16: Right upper lobe consolidation compatible with lobar pneumonia CT chest w/ IV contrast from 07/16: Right upper lobe consolidation consistent with pneumonia. Mild pneumonia is also seen in the left upper lobe. Bilateral pleural effusions (small on the right and trace on the left). Mediastinal and hilar lymphadenopathy, most likely reactive in the setting of pneumonia. A 5 mm nodule found along the LEFT major fissure. Mild cardiomegaly with severe coronary atherosclerosis. Plan: Continue oxygen supplementation Continue IV azithromycin and ceftriaxone Continue guafenesin and albuterol Monitor O2 sat Qualifiers: Pneumonia type: due to unspecified organism Laterality: bilateral Lung location: upper lobe of lung Qualified Code(s): J18.9 - Pneumonia, unspecified organism (6) COPD with exacerbation Conclusion/Plan: Patient has a history of COPD likely due to her extensive smoking history (56 years) and being a "chain smoker". At baseline, she does not require supplemental oxygen; however, she has needed at least 4L/min of oxygen to keep her O2 sat in the low 90%. Initially, nebulized albuterol treatments resulted in significant improvement in her ability to breathe, but is still very short of breath when walking. On 07/18, her breathing worsened due to alcohol withdrawal. She dropped to 88% O2 sat on 4L nasal cannula. She was then placed on an oxygen mask with 12L/min oxygen. This brought her O2 sat up to 94%. Plan: Continue albuterol nebulizer treatments Continue supplemental oxygen 12L/min Monitor O2 sat (4) Hyponatremia Conclusion/Plan: This is likely hypovolemic hyponatremia due to not eating much in the last few weeks and also alcohol abuse. Patient reports she has not been hungry because of grief after her . On admission, she was hyponatremic and her sodium level was 123. On 07/17, it has improved to 128. When I went to visit with the patient on 07/17, she did not remember that we had a lengthy conversation yesterday about her late . Initially, I thought this was due to her low sodium levels yesterday. On 07/18, her BNP came back high at 229. Her sodium increased to 132. She is eating well, therefore I will stop her IV fluids. Plan: Stopped IVF No more restriction of free water Check sodium every 12 hours for a goal of 6-8 meq over 24 hours Check BNP (5) Incidental lung nodule, > 3mm and < 8mm Conclusion/Plan: Though chest CT was initially ordered by the ER to rule out rib fractures from her fall, several lung findings were noted. These are especially concerning given the patient's extensive smoking history (56 years) Chest CT w/contrast from 07/16 found a 5 mm nodule along the LEFT major fissure. In addition, there was also mediastinal and hilar adenopathy, a 1.8 cm right paratracheal lymph node, a 1.3 cm clustered AP window lymph node, a 1.3 cm right hilar lymph node, and a 1 cm left hilar lymph node NOTE- Initial radiology report described a 5 mm right-sided nodule, however, it has subsequently been corrected to LEFT-sided nodule. I discussed these findings with the patient, and she expressed understanding. The next morning on 07/17, the nurse reported that the patient was very anxious and worrying about what will happen to her disabled son when she passes away. Plan: Follow up CT recommended in 6-12 months. Then, again at 18-24 months if no change. Treat pneumonia with IV antibiotics which could help with the adenopathy (7) Iatrogenic hyperthyroidism Assessment/Plan: Patient has a history of hypothyroidism for which she takes levothyroxine 125 mcg at home. She has not been on this medication during her stay here. On 07/17, we discovered that her TSH was <0.08. I believe the patient is over treating herself with her levothyroxine, especially now that she is down 30 pounds. Her current hyperthyroidism could be contributing to many of her symptoms including anxiety, brief episode of PSVT, dyspnea, weight loss, and confusion. Plan: Decrease levothyroxine dose to 112 mcg (8) Tobacco abuse disorder Conclusion/Plan: She has been smoking since she was 21 years old and has never been able to quit despite multiple attempts, including hypnotherapy. She has decreased from 3 packs daily to ~8 cigarettes daily over time. She was very embarrassed to speak about her smoking habits in front of her family and even became tearful when speaking about it. On 07/17, she described herself as being a "chain smoker". She also admitted to us that she has been smoking more since her to help manage her grief. Plan: Nicotine patch daily (9) PSVT (paroxysmal supraventricular tachycardia) Conclusion/Plan: RESOLVED On 5/2 at approximately 13:45, patient had a brief run of PSVT. I suspect this was caused by her current lung disease, however I will also check for hyper thyroidism. On 07/17, her TSH was <0.08, indicating overtreatment with her levothyroxine. Plan: Monitor for any changes Continue telemetry - Current Meds Current Meds: Current Medications Generic Name Dose Route Start Last Admin Trade Name Freq PRN Reason Stop Dose Admin Albuterol 2.5 mg 07/16/22 15:00 07/19/22 15:35 Albuterol Neb 2.5 Mg/3 Ml INH Not Given RTQID DARREN Chlorhexidine Gluconate 15 ml 07/19/22 10:00 07/19/22 10:47 Chlorhexidine Gluconate 15 Ml Udc PO 15 ml BID DARREN Administration Enoxaparin Sodium 40 mg 07/16/22 12:00 07/19/22 09:13 Enoxaparin 40 Mg/0.4 Ml Syringe SUBQ 40 mg DAILY DARREN Administration Famotidine 20 mg 07/18/22 21:00 07/19/22 09:12 Famotidine 20 Mg/2 Ml Vial IVP 20 mg BID DARREN Administration Ceftriaxone Sodium 2 gm/ 100 mls @ 200 mls/hr 07/17/22 09:00 07/19/22 09:50 Sodium Chloride IV Infused DAILY DARREN Infusion Thiamine HCl 100 mg/ Sodium 51 mls @ 100 mls/hr 07/18/22 11:00 07/19/22 11:20 Chloride IV Infused DAILY DARREN Infusion Acetaminophen 1,000 mg in 100 mls @ 400 mls/hr 07/18/22 14:38 07/19/22 06:40 Acetaminophen IV Infused Q6HR PRN Infusion Pain or Fever > 38C (100.4F) Dextrose/Sodium Chloride 1,000 mls @ 40 mls/hr 07/18/22 15:00 07/19/22 07:00 D5ns IV 40 mls/hr .Q25H DARREN Infusion Lorazepam 100 mls @ 0.845 mls/hr 07/18/22 19:10 07/19/22 16:51 Ativan IV 0.04 mg/kg/hr .Q72H DARREN 3.38 mls/hr Titration Protocol 0.01 MG/KG/HR Fentanyl 2,500 mcg/ Sodium 250 mls @ 8.45 mls/hr 07/19/22 12:00 07/19/22 12:35 Chloride IV 1 mcg/kg/hr .[id number] DARREN 8.45 mls/hr Administration Protocol 1 MCG/KG/HR Lorazepam 1 mg 07/18/22 12:28 07/18/22 15:37 Lorazepam 2 Mg/Ml Vial IVP 1 mg Q30M PRN Administration CIWA >8 Protocol Nicotine 1 patch 07/16/22 16:09 07/19/22 09:17 Nicotine 14 Mg Patch TOP 1 patch DAILY DARREN Administration Sodium Chloride 10 ml 07/16/22 17:00 07/19/22 09:20 Sodium Chloride Flush 0.9% 10 Ml Syringe IVP 10 ml 0100,0900,1700 DARREN Administration - Lab Result Fish Bone Diagrams: 07/19/22 04:21 07/19/22 04:21 - Additional Planning My Orders: My Active Orders 07/18/22 18:33 RT - Obtain Arterial Specimen [RC] .ONCE 07/18/22 19:10 LORazepam 100MG/100ML D5W [Ativan] 100 ml IV 0.01 mg/kg/hr 07/18/22 20:36 Initial Ventilator Settings [RC] .ONCE 07/18/22 20:37 Ventilator Bundle Oral Care [RC] Q2H Ventilator Bundle [RC] Q8H Ventilator Care - ICU [RC] Q4HR 07/18/22 21:00 Famotidine [Pepcid] 20 mg IVP BID 07/19/22 01:13 RT - Obtain Arterial Specimen [RC] .ONCE 07/19/22 01:48 Sodium Chloride 0.9% [Normal Saline 0.9%] 500 ml IV Q24H 07/19/22 10:00 Chlorhexidine [Peridex] 15 ml PO BID 07/19/22 12:00 Sodium Chloride 0.9% [Normal Saline 0.9%] 200 ml fentaNYL 2,500 mcg IV 1 mcg/kg/hr 07/19/22 14:58 NonViolent Restraint(s) Q24H 07/20/22 05:00 CALCIUM, IONIZED ([facility]) [BG] DAILYLAB 07/21/22 05:00 CALCIUM, IONIZED ([facility]) [BG] DAILYLAB <Diana Velasquez - Last Filed: 07/19/22 17:50> Subjective - Subjective Patient Reports: Other (Patient reports visual and auditory hallucinations.) Nursing Reports: Confused, Sedated (Ativan), Shortness of Breath, Other (Pt has been anxious and confused since last night) <Cande Lebron - Last Filed: 07/18/22 18:32> Objective Vital Signs: Vital Signs - 24 hr 07/17/22 07/17/22 07/17/22 11:54 16:36 20:38 Temperature 36.4 C L 36.4 C L 36.2 C L Heart Rate Heart Rate [ 96 95 94 Brachial] Heart Rate [ 88 Radial] Respiratory 18 24 24 Rate Blood Pressure 116/82 H 156/87 H 151/86 H [Left Brachial artery] O2 Saturation 95 94 95 If not protocol 4 4 4 : Oxygen Flow, liters/minute 07/17/22 07/18/22 07/18/22 20:40 00:59 05:04 Temperature 36.4 C L 36.5 C Heart Rate 98 Heart Rate [ 94 96 Brachial] Heart Rate [ Radial] Respiratory 24 22 24 Rate Blood Pressure 149/82 H 151/86 H [Left Brachial artery] O2 Saturation 94 92 If not protocol 4 4 4 : Oxygen Flow, liters/minute 07/18/22 07/18/22 09:00 09:32 Temperature 36.3 C L Heart Rate Heart Rate [ 88 Brachial] Heart Rate [ Radial] Respiratory 22 Rate Blood Pressure 134/77 H [Left Brachial artery] O2 Saturation 94 If not protocol 4 4 : Oxygen Flow, liters/minute Oxygen O2 Source Nasal cannula I&O (Last 24 Hrs): Intake and Output Totals x24h 07/16/22 07/17/22 07/18/22 23:59 23:59 23:59 Intake Total 4415.833 3883.167 1056 Output Total 1170 425 Balance 4415.833 2713.167 631 Neck: Supple, No JVD, No thyromegaly Neuro: Disoriented, Other (Patient not speaking coherently and muttering/moaning. Not able to follow commands.) Skin: No rashes - Results Results: Laboratory Results WBC 12.1 x10^3/uL (4.8-10.8) H 07/18/22 05:08 RBC 3.67 10^6/uL (4.20-5.40) L 07/18/22 05:08 Hgb 13.9 g/dL (12.0-16.0) 07/18/22 05:08 Hct 38.0 % (37.0-47.0) 07/18/22 05:08 MCV 103.5 fL (81.0-99.0) H 07/18/22 05:08 MCH 37.9 pg (27.0-31.0) H 07/18/22 05:08 MCHC 36.6 g/dL (32.0-36.0) H 07/18/22 05:08 RDW 14.1 % (12.0-15.0) 07/18/22 05:08 Plt Count 197 10^3/uL (130-450) 07/18/22 05:08 MPV 9.3 fL (7.9-10.8) 07/18/22 05:08 Neut # (Auto) Not Reportable 07/18/22 05:08 Lymph # (Auto) Not Reportable 07/18/22 05:08 Knott # (Auto) Not Reportable 07/18/22 05:08 Eos # (Auto) Not Reportable 07/18/22 05:08 Baso # (Auto) Not Reportable 07/18/22 05:08 Absolute Nucleated RBC Not Reportable 07/18/22 05:08 Total Counted 100 07/18/22 05:08 Band Neuts % (Manual) 7 % (0-10) 07/18/22 05:08 Abnorm Lymph % (Manual) 0 % 07/18/22 05:08 Metamyelocytes % 1 % (-0) H 07/18/22 05:08 Myelocytes % 1 % (-0) H 07/18/22 05:08 Nucleated RBC % Not Reportable 07/18/22 05:08 Neutrophils # (Manual) 9.6 10^3/uL (1.5-6.6) H 07/18/22 05:08 Lymphocytes # (Manual) 1.3 10^3/uL (1.5-3.5) L 07/18/22 05:08 Monocytes # (Manual) 0.8 10^3/uL (0.0-1.0) 07/18/22 05:08 Eosinophils # (Manual) 0.1 10^3/uL (0-0.7) 07/18/22 05:08 Basophils # (Manual) 0.0 10^3/uL (0-0.1) 07/18/22 05:08 Differential Comment MANUAL DIFFERENTIAL 07/18/22 05:08 WBC Morphology NORMAL APPEARANCE (NORMAL) 07/17/22 04:45 Platelet Estimate NORMAL (130-450,000) (NORMAL) 07/18/22 05:08 Platelet Morphology NORMAL APPEARANCE (NORMAL) 07/17/22 04:45 RBC Morph Micro Appear NORMAL APPEARANCE (NORMAL) 07/18/22 05:08 Sodium 132 mmol/L (135-145) L 07/18/22 05:08 Potassium 4.2 mmol/L (3.5-5.0) 07/18/22 05:08 Chloride 100 mmol/L (101-111) L 07/18/22 05:08 Carbon Dioxide 24 mmol/L (21-32) 07/18/22 05:08 Anion Gap 8.0 (6-13) 07/18/22 05:08 BUN 18 mg/dL (6-20) 07/18/22 05:08 Creatinine 0.3 mg/dL (0.4-1.0) L 07/18/22 05:08 Estimated GFR (MDRD) 217 (>89) 07/18/22 05:08 Glucose 104 mg/dL (70-100) H 07/18/22 05:08 Lactic Acid 1.8 mmol/L (0.5-2.2) 07/16/22 00:42 Calcium 8.7 mg/dL (8.5-10.3) 07/18/22 05:08 Total Bilirubin 1.0 mg/dL (0.2-1.0) 07/15/22 22:28 AST 36 IU/L (10-42) 07/15/22 22:28 ALT 24 IU/L (10-60) 07/15/22 22:28 Alkaline Phosphatase 134 IU/L (42-121) H 07/15/22 22:28 B-Natriuretic Peptide 229 pg/mL (5-100) H 07/18/22 05:08 Total Protein 5.4 g/dL (6.7-8.2) L 07/15/22 22:28 Albumin 2.4 g/dL (3.2-5.5) L 07/15/22 22:28 Globulin 3.0 g/dL (2.1-4.2) 07/15/22 22:28 Albumin/Globulin Ratio 0.8 (1.0-2.2) L 07/15/22 22:28 Lipase 28 U/L (22-51) 07/15/22 22:28 TSH < 0.08 uIU/mL (0.34-5.60) L 07/17/22 04:45 Urine Color YELLOW 07/16/22 00:12 Urine Clarity CLEAR (CLEAR) 07/16/22 00:12 Urine pH 5.5 PH (5.0-7.5) 07/16/22 00:12 Ur Specific Hulbert 1.025 (1.002-1.030) 07/16/22 00:12 Urine Protein NEGATIVE mg/dL (NEGATIVE) 07/16/22 00:12 Urine Glucose (UA) NEGATIVE mg/dL (NEGATIVE) 07/16/22 00:12 Urine Ketones NEGATIVE mg/dL (NEGATIVE) 07/16/22 00:12 Urine Occult Blood NEGATIVE (NEGATIVE) 07/16/22 00:12 Urine Nitrite NEGATIVE (NEGATIVE) 07/16/22 00:12 Urine Bilirubin NEGATIVE (NEGATIVE) 07/16/22 00:12 Urine Urobilinogen 2 E.U./dL (NORMAL) H 07/16/22 00:12 Ur Leukocyte Esterase NEGATIVE (NEGATIVE) 07/16/22 00:12 Ur Microscopic Review NOT INDICATED 07/16/22 00:12 Urine Culture Comments NOT INDICATED 07/16/22 00:12 Nasal Adenovirus (PCR) NOT DETECTED 07/15/22 22:42 Nasal B. parapertussis DNA (PCR) NOT DETECTED 07/15/22 22:42 Nasal Coronavir 229E PCR NOT DETECTED 07/15/22 22:42 Nasal Coronavir HKU1 PCR NOT DETECTED 07/15/22 22:42 Nasal Coronavir NL63 PCR NOT DETECTED 07/15/22 22:42 Nasal Coronavir OC43 PCR NOT DETECTED 07/15/22 22:42 Nasal Enterovir/Rhinovir PCR NOT DETECTED 07/15/22 22:42 Nasal Influenza B PCR NOT DETECTED 07/15/22 22:42 Nasal Influenza A PCR NOT DETECTED 07/15/22 22:42 Nasal Parainfluen 1 PCR NOT DETECTED 07/15/22 22:42 Nasal Parainfluen 2 PCR NOT DETECTED 07/15/22 22:42 Nasal Parainfluen 3 PCR NOT DETECTED 07/15/22 22:42 Nasal Parainfluen 4 PCR NOT DETECTED 07/15/22 22:42 Nasal RSV (PCR) NOT DETECTED 07/15/22 22:42 Nasal B.pertussis DNA PCR NOT DETECTED 07/15/22 22:42 Nasal C.pneumoniae (PCR) NOT DETECTED 07/15/22 22:42 Curtis Human Metapneumo PCR NOT DETECTED 07/15/22 22:42 Nasal M.pneumoniae (PCR) NOT DETECTED 07/15/22 22:42 Nasal SARS-CoV-2 (PCR) NOT DETECTED 07/15/22 22:42 - Procedures Procedures: Procedures REPLACEMENT OF RIGHT LENS WITH SYNTH SUB, PERC APPROACH (05/27/19) <Cande Lebron - Last Filed: 07/18/22 18:32> Vital Signs: Vital Signs - 24 hr 07/18/22 07/18/22 07/18/22 18:00 18:30 19:00 Temperature Heart Rate Heart Rate [ 108 H 114 H Brachial] Heart Rate [ Monitoring electrodes] Respiratory 34 H 34 H 34 H Rate Blood Pressure 153/89 H 164/90 H [Right Brachial artery] O2 Saturation 96 96 98 If not protocol 16 16 16 : Oxygen Flow, liters/minute 07/18/22 07/18/22 07/18/22 19:25 19:30 20:00 Temperature Heart Rate 116 H Heart Rate [ 111 H Brachial] Heart Rate [ Monitoring electrodes] Respiratory 34 H 15 Rate Blood Pressure [Right Brachial artery] O2 Saturation 98 94 If not protocol 16 : Oxygen Flow, liters/minute 07/18/22 07/18/22 07/18/22 20:05 21:00 22:00 Temperature 37.5 C 37.8 C Heart Rate Heart Rate [ Brachial] Heart Rate [ 113 H 104 H Monitoring electrodes] Respiratory 18 21 Rate Blood Pressure 162/107 H 134/79 H 141/20 H [Right Brachial artery] O2 Saturation 95 97 If not protocol : Oxygen Flow, liters/minute 07/18/22 07/18/22 07/18/22 22:30 23:00 23:52 Temperature 38.0 C H Heart Rate 107 H Heart Rate [ Brachial] Heart Rate [ 105 H 102 H Monitoring electrodes] Respiratory 23 21 Rate Blood Pressure 127/75 124/78 [Right Brachial artery] O2 Saturation 98 98 If not protocol : Oxygen Flow, liters/minute 07/19/22 07/19/22 07/19/22 01:00 01:04 01:37 Temperature 37.9 C Heart Rate 107 H 89 Heart Rate [ Brachial] Heart Rate [ 90 Monitoring electrodes] Respiratory 24 Rate Blood Pressure 124/69 [Right Brachial artery] O2 Saturation 98 If not protocol : Oxygen Flow, liters/minute 07/19/22 07/19/22 07/19/22 02:00 03:00 03:36 Temperature 37.7 C 37.6 C Heart Rate 86 Heart Rate [ Brachial] Heart Rate [ 87 86 Monitoring electrodes] Respiratory 21 20 Rate Blood Pressure 118/67 118/76 [Right Brachial artery] O2 Saturation 94 95 If not protocol : Oxygen Flow, liters/minute 07/19/22 07/19/22 07/19/22 04:00 04:46 05:00 Temperature 37.5 C 37.6 C Heart Rate 84 Heart Rate [ Brachial] Heart Rate [ 85 82 Monitoring electrodes] Respiratory 19 18 Rate Blood Pressure 129/101 H 124/70 [Right Brachial artery] O2 Saturation 93 95 If not protocol : Oxygen Flow, liters/minute 07/19/22 07/19/22 07/19/22 06:00 07:00 08:00 Temperature 37.7 C 37.6 C 37.7 C Heart Rate 88 Heart Rate [ Brachial] Heart Rate [ 81 83 83 Monitoring electrodes] Respiratory 18 18 18 Rate Blood Pressure 126/75 132/82 H 129/81 H [Right Brachial artery] O2 Saturation 97 96 97 If not protocol : Oxygen Flow, liters/minute 07/19/22 07/19/22 07/19/22 09:00 09:02 10:00 Temperature 37.6 C Heart Rate 86 Heart Rate [ Brachial] Heart Rate [ 86 82 Monitoring electrodes] Respiratory 18 18 Rate Blood Pressure 135/90 H 139/77 H [Right Brachial artery] O2 Saturation 97 97 If not protocol : Oxygen Flow, liters/minute 07/19/22 07/19/22 07/19/22 11:00 11:44 11:58 Temperature 37.6 C Heart Rate 76 98 Heart Rate [ Brachial] Heart Rate [ 85 Monitoring electrodes] Respiratory 18 18 Rate Blood Pressure 134/78 H [Right Brachial artery] O2 Saturation 98 If not protocol : Oxygen Flow, liters/minute 07/19/22 07/19/22 07/19/22 12:00 13:00 14:00 Temperature 37.6 C 37.4 C 37.2 C Heart Rate Heart Rate [ Brachial] Heart Rate [ 93 96 80 Monitoring electrodes] Respiratory 24 18 18 Rate Blood Pressure 142/76 H 119/71 120/77 [Right Brachial artery] O2 Saturation 98 96 98 If not protocol : Oxygen Flow, liters/minute 07/19/22 07/19/22 07/19/22 15:00 15:26 15:39 Temperature 37.2 C Heart Rate 78 78 Heart Rate [ Brachial] Heart Rate [ 77 Monitoring electrodes] Respiratory 18 18 Rate Blood Pressure 129/84 H [Right Brachial artery] O2 Saturation 99 If not protocol : Oxygen Flow, liters/minute 07/19/22 07/19/22 16:00 17:00 Temperature 37.4 C 37.4 C Heart Rate Heart Rate [ Brachial] Heart Rate [ 79 74 Monitoring electrodes] Respiratory 18 18 Rate Blood Pressure 121/74 120/67 [Right Brachial artery] O2 Saturation 93 95 If not protocol : Oxygen Flow, liters/minute Oxygen O2 Source Mechanical ventilator I&O (Last 24 Hrs): Intake and Output Totals x24h 07/17/22 07/18/22 07/19/22 23:59 23:59 23:59 Intake Total 3883.167 0957.474 0361.643 Output Total 7930 539 5280 Balance 2713.167 882.817 239.643 - Results Results: Laboratory Results WBC 10.1 x10^3/uL (4.8-10.8) 07/19/22 04:21 RBC 3.60 10^6/uL (4.20-5.40) L 07/19/22 04:21 Hgb 13.4 g/dL (12.0-16.0) 07/19/22 04:21 Hct 38.5 % (37.0-47.0) 07/19/22 04:21 MCV 106.9 fL (81.0-99.0) H 07/19/22 04:21 MCH 37.2 pg (27.0-31.0) H 07/19/22 04:21 MCHC 34.8 g/dL (32.0-36.0) 07/19/22 04:21 RDW 14.6 % (12.0-15.0) 07/19/22 04:21 Plt Count 217 10^3/uL (130-450) 07/19/22 04:21 MPV 8.9 fL (7.9-10.8) 07/19/22 04:21 Neut # (Auto) Not Reportable 07/19/22 04:21 Lymph # (Auto) Not Reportable 07/19/22 04:21 Knott # (Auto) Not Reportable 07/19/22 04:21 Eos # (Auto) Not Reportable 07/19/22 04:21 Baso # (Auto) Not Reportable 07/19/22 04:21 Absolute Nucleated RBC Not Reportable 07/19/22 04:21 Total Counted 100 07/19/22 04:21 Band Neuts % (Manual) 5 % (0-10) 07/19/22 04:21 Abnorm Lymph % (Manual) 0 % 07/19/22 04:21 Metamyelocytes % 2 % (-0) H 07/19/22 04:21 Myelocytes % 2 % (-0) H 07/19/22 04:21 Nucleated RBC % Not Reportable 07/19/22 04:21 Neutrophils # (Manual) 8.6 10^3/uL (1.5-6.6) H 07/19/22 04:21 Lymphocytes # (Manual) 0.9 10^3/uL (1.5-3.5) L 07/19/22 04:21 Monocytes # (Manual) 0.2 10^3/uL (0.0-1.0) 07/19/22 04:21 Eosinophils # (Manual) 0.0 10^3/uL (0-0.7) 07/19/22 04:21 Basophils # (Manual) 0.0 10^3/uL (0-0.1) 07/19/22 04:21 Differential Comment MANUAL DIFFERENTIAL 07/19/22 04:21 WBC Morphology NORMAL APPEARANCE (NORMAL) 07/17/22 04:45 Platelet Estimate NORMAL (130-450,000) (NORMAL) 07/19/22 04:21 Platelet Morphology NORMAL APPEARANCE (NORMAL) 07/17/22 04:45 RBC Morph Micro Appear NORMAL APPEARANCE (NORMAL) 07/19/22 04:21 Bld Gas Analysis Time 0128 07/19/22 01:20 Sample Site RIGHT RADIAL 07/19/22 01:20 ABG pH 7.37 (7.35-7.45) 07/19/22 01:20 ABG pCO2 51 mmHg (34-45) H 07/19/22 01:20 ABG pO2 250 mmHg (80-100) H* 07/19/22 01:20 ABG HCO3 28.9 mmol/L (22.0-26.0) H 07/19/22 01:20 ABG Total CO2 30.5 MMOL/L (21.0-29.0) H 07/19/22 01:20 ABG O2 Saturation 100 % (94-98) H 07/19/22 01:20 ABG Base Excess 2.6 mmol/L (-2.0-3.0) 07/19/22 01:20 Galo Test NOT APPLICABLE 07/19/22 01:20 VBG pH 7.367 (7.31-7.41) 07/19/22 04:21 Ionized Calcium 1.17 mmol/L (1.15-1.33) 07/19/22 04:21 O2 Delivery Device VENTILATOR 07/19/22 01:20 O2 Liters/Min 15.00 LPM 07/18/22 18:40 Vent Mode PC20 07/19/22 01:20 FiO2 100.00 07/19/22 01:20 PEEP 8 cmH2O 07/19/22 01:20 Sodium 135 mmol/L (135-145) 07/19/22 04:21 Potassium 4.3 mmol/L (3.5-5.0) 07/19/22 04:21 Chloride 100 mmol/L (101-111) L 07/19/22 04:21 Carbon Dioxide 27 mmol/L (21-32) 07/19/22 04:21 Anion Gap 8.0 (6-13) 07/19/22 04:21 BUN 19 mg/dL (6-20) 07/19/22 04:21 Creatinine 0.5 mg/dL (0.4-1.0) 07/19/22 04:21 Estimated GFR (MDRD) 120 (>89) 07/19/22 04:21 Glucose 100 mg/dL (70-100) 07/19/22 04:21 Lactic Acid 1.8 mmol/L (0.5-2.2) 07/16/22 00:42 Calcium 8.3 mg/dL (8.5-10.3) L 07/19/22 04:21 Phosphorus 2.6 mg/dL (2.5-4.6) 07/19/22 04:21 Magnesium 1.8 mg/dL (1.7-2.8) 07/19/22 04:21 Total Bilirubin 1.0 mg/dL (0.2-1.0) 07/15/22 22:28 AST 36 IU/L (10-42) 07/15/22 22:28 ALT 24 IU/L (10-60) 07/15/22 22:28 Alkaline Phosphatase 134 IU/L (42-121) H 07/15/22 22:28 B-Natriuretic Peptide 252 pg/mL (5-100) H 07/19/22 04:21 Total Protein 5.4 g/dL (6.7-8.2) L 07/15/22 22:28 Albumin 2.4 g/dL (3.2-5.5) L 07/15/22 22:28 Globulin 3.0 g/dL (2.1-4.2) 07/15/22 22:28 Albumin/Globulin Ratio 0.8 (1.0-2.2) L 07/15/22 22:28 Lipase 28 U/L (22-51) 07/15/22 22:28 Vitamin B12 296 pg/mL (180-914) 07/19/22 04:21 Folate 4.89 ng/mL (5.90 - >24.8) L 07/19/22 04:21 TSH < 0.08 uIU/mL (0.34-5.60) L 07/17/22 04:45 Urine Color YELLOW 07/16/22 00:12 Urine Clarity CLEAR (CLEAR) 07/16/22 00:12 Urine pH 5.5 PH (5.0-7.5) 07/16/22 00:12 Ur Specific Hulbert 1.025 (1.002-1.030) 07/16/22 00:12 Urine Protein NEGATIVE mg/dL (NEGATIVE) 07/16/22 00:12 Urine Glucose (UA) NEGATIVE mg/dL (NEGATIVE) 07/16/22 00:12 Urine Ketones NEGATIVE mg/dL (NEGATIVE) 07/16/22 00:12 Urine Occult Blood NEGATIVE (NEGATIVE) 07/16/22 00:12 Urine Nitrite NEGATIVE (NEGATIVE) 07/16/22 00:12 Urine Bilirubin NEGATIVE (NEGATIVE) 07/16/22 00:12 Urine Urobilinogen 2 E.U./dL (NORMAL) H 07/16/22 00:12 Ur Leukocyte Esterase NEGATIVE (NEGATIVE) 07/16/22 00:12 Ur Microscopic Review NOT INDICATED 07/16/22 00:12 Urine Culture Comments NOT INDICATED 07/16/22 00:12 Nasal Adenovirus (PCR) NOT DETECTED 07/15/22 22:42 Nasal B. parapertussis DNA (PCR) NOT DETECTED 07/15/22 22:42 Nasal Coronavir 229E PCR NOT DETECTED 07/15/22 22:42 Nasal Coronavir HKU1 PCR NOT DETECTED 07/15/22 22:42 Nasal Coronavir NL63 PCR NOT DETECTED 07/15/22 22:42 Nasal Coronavir OC43 PCR NOT DETECTED 07/15/22 22:42 Nasal Enterovir/Rhinovir PCR NOT DETECTED 07/15/22 22:42 Nasal Influenza B PCR NOT DETECTED 07/15/22 22:42 Nasal Influenza A PCR NOT DETECTED 07/15/22 22:42 Nasal Parainfluen 1 PCR NOT DETECTED 07/15/22 22:42 Nasal Parainfluen 2 PCR NOT DETECTED 07/15/22 22:42 Nasal Parainfluen 3 PCR NOT DETECTED 07/15/22 22:42 Nasal Parainfluen 4 PCR NOT DETECTED 07/15/22 22:42 Nasal RSV (PCR) NOT DETECTED 07/15/22 22:42 Nasal Screen MRSA (PCR) NEGATIVE (NEGATIVE) 07/18/22 15:06 Nasal B.pertussis DNA PCR NOT DETECTED 07/15/22 22:42 Nasal C.pneumoniae (PCR) NOT DETECTED 07/15/22 22:42 Curtis Human Metapneumo PCR NOT DETECTED 07/15/22 22:42 Nasal M.pneumoniae (PCR) NOT DETECTED 07/15/22 22:42 Nasal SARS-CoV-2 (PCR) NOT DETECTED 07/15/22 22:42 - Procedures Procedures: Procedures REPLACEMENT OF RIGHT LENS WITH SYNTH SUB, PERC APPROACH (05/27/19) <Diana Velasquez - Last Filed: 07/19/22 17:50> ABX Reporting Has patient been on IV antibiotics over the past 48 hours?: Yes <Cande Lebron - Last Filed: 07/18/22 18:32>
--- NOTE | 2022-07-18 11:56 | CT Report ---
PROCEDURE: HEAD WO INDICATIONS: Confusion, disorientation TECHNIQUE: Noncontrast 4.5 mm thick angled axial sections acquired from the foramen magnum to the vertex. For r adiation dose reduction, the following was used: automated exposure control, adjustment of mA and/or kV according to patient size. COMPARISON: None. FINDINGS: Image quality: Excellent. CSF spaces: Basal cisterns are patent. No extra-axial fluid collections. Ventricles are normal in size and shape. Brain: No midline shift. No intracranial masses or hemorrhage. No area of hypodensity in a vascula r distribution to suggest acute infarction. There is periventricular hypodensity consistent with long wall mining machine helper jeremy microvascular ischemic disease. Age-related parenchymal loss. Skull and face: Calvarium and visualized facial bones are intact, without suspicious lesions. Sinuses: Visualized sinuses and mastoids are clear. IMPRESSION: No acute intracranial abnormality. Reviewed by: Linwood Browne MD on 07/18/2022 11:55 AM PDT Approved by: Linwood Browne MD on 07/18/2022 11:55 AM PDT Station ID: [id number]
[2022-07-18] MEDS ORDERED: THIAMINE 100 MG TABLET PO SCH (12:00)
[2022-07-18] MEDS: THIAMINE INJ 100 MG in SODIUM CHLORIDE 0.9% 50 ML IV SCH (13:32)
[2022-07-18] MEDS: LORazepam 2 MG/ML VIAL IVP PRN ×2 (13:47→15:37)
[2022-07-18] MEDS: DEXTROSE 5%-0.9% NACL 1,000 ML IV SCH (15:15)
--- NOTE | 2022-07-18 18:03 | XRAY Report ---
PROCEDURE: Chest 1 View X-Ray INDICATIONS: New rales,new mucous plug,sedated poss aspirated TECHNIQUE: One view of the chest was acquired. COMPARISON: Chest x-ray 07/15/2022, CT chest 07/16/2022 FINDINGS: Surgical changes and devices: None. Lungs and pleura: Overall appearance of increased pulmonary vascularity has decreased. Overall appea stewart of patchy and confluent pulmonary opacities overall have decreased in prominence including the largest focus in the right upper and middle lobe. Air bronchograms remain markedly visible. Mediastinum: Mediastinal contours appear normal. Heart size is enlarged. Bones and chest wall: No suspicious bony lesions. Overlying soft tissues appear unremarkable. IMPRESSION: Persistent although improved appearance of bilateral pulmonary opacities suggestive of edema and pneu monia. Reviewed by: Gabriela Ramirez MD on 07/18/2022 6:01 PM PDT Approved by: Gabriela Ramirez MD on 07/18/2022 6:01 PM PDT Station ID: [id number]
[2022-07-18 18:57] LABS: ABG BASE EXCESS -1.1 mmol/L (-2.0-3.0); ABG HCO3 28.2 mmol/L (22.0-26.0); ABG OXYGEN SATURATION 94 % (94-98); ABG PH 7.24 (7.35-7.45); ABG PO2 76 mmHg (80-100); ABG TCO2 30.3 MMOL/L (21.0-29.0); ALLEN TEST POSITIVE
[2022-07-18 19:00] LABS: ABG PCO2 67 mmHg (34-45)
[2022-07-18] MEDS ORDERED: MIDAZOLAM 2 MG/2 ML VIAL ONE (19:18)
[2022-07-18] MEDS ORDERED: SUCCINYLCHOLINE 200 MG/10 ML VIAL ONE (19:18)
[2022-07-18] MEDS ORDERED: MIDAZOLAM 10 MG/2 ML VIAL IVP STA (19:27)
[2022-07-18] MEDS ORDERED: SUCCINYLCHOLINE 200 MG/10 ML VIAL IVP ONE (19:32)
[2022-07-18] MEDS ORDERED: LORazepam 2 MG/ML VIAL IVP STA (20:04)
--- NOTE | 2022-07-18 20:07 | XRAY Report ---
PROCEDURE: Chest for Line Placement INDICATIONS: intubation TECHNIQUE: One view of the chest was acquired. COMPARISON: Previous chest x-ray from 07/18/2022. CT chest 07/16/2022. FINDINGS: Surgical changes and devices: There is a new endotracheal tube with tip in the region of the luciano and directed extending into left mainstem bronchus. A nasogastric tube extends into the stomach with the tip not included on the current study. Lungs and pleura: There is persistent extensive consolidation within the right upper and midlung zon es. There is increased pulmonary edema. Persistent small bilateral pleural effusions. No pneumothorax . Mediastinum: Mediastinal contours appear unchanged. Heart size is normal. Bones and chest wall: No suspicious bony lesions. Overlying soft tissues appear unremarkable. IMPRESSION: 1. Endotracheal tube demonstrated at the level of the luciano. Recommend withdrawal by approximately 4 cm. Findings discussed with Dr. Tierney on 07/18/2022 at 8:03 PM. 2. Extensive consolidation redemonstrated within the right upper and midlung zones. 3. Increased pulmonary edema. 4. Persistent small bilateral effusions. Reviewed by: Manjit Aly MD on 07/18/2022 8:06 PM PDT Approved by: Manjit Aly MD on 07/18/2022 8:06 PM PDT Station ID: [id number]
--- NOTE | 2022-07-18 20:53 | ED Physician Documentation ---
ED Addendum - Addendum Addendum: 07/18/22 20:55 I was asked by the hospitalist (Dr. Yadav) to intubate this patient. This patient was admitted a few days ago for pneumonia complicated by alcohol withdrawal. The medication she is being given for alcohol withdrawal have led to increasing sedation, hypopnea, and ABG results (pCO2 67 with pH 7.2) that indicate the need for intubation. Please see my procedure note for details of the procedure (intubation). 07/18/22 20:57 INTUBATION - Intubation Provider: positive: Emergency physician Medications: positive: Versed (5 mg), Succinylcholine (100 mg) Blade: positive: Glidescope Tube: positive: Size-enter number (7.5), Cuffed, Marked at teeth-enter cm (27) Route: positive: Oral Confirmation: positive: Direct visualization (via glidescope), Bilateral breath sounds, End tidal CO2, Pulse ox, Chest xray (On post intubation chest x-ray, I note that the ET tube is at the level of the luciano, possibly into the left mainstem broncus and thus I instructed therapist respiratory to pull the ETT back 3-4 cm ; I subsequently recontacted therapist respiratory and he confirms he has pulled back the tube 3.5 cm) Complications: positive: Other (left mainstem)
[2022-07-18] MEDS: LORazepam 100MG/100ML D5W 100 ML IV SCH (21:01)
[2022-07-18] MEDS: FAMOTIDINE 20 MG/2 ML VIAL IVP SCH (21:35)
[2022-07-19] MEDS: ACETAMINOPHEN 1,000 MG/100 ML 1,000 MG/100 ML BAG IV PRN ×2 (00:31→06:18)
[2022-07-19 01:28] LABS: ABG PCO2 51 mmHg (34-45); ABG PH 7.37 (7.35-7.45)
[2022-07-19 01:29] LABS: ABG BASE EXCESS 2.6 mmol/L (-2.0-3.0); ABG HCO3 28.9 mmol/L (22.0-26.0); ABG MODE OF VENTILATION PC20; ABG OXYGEN SATURATION 100 % (94-98); ABG TCO2 30.5 MMOL/L (21.0-29.0)
[2022-07-19 01:31] LABS: ABG PO2 250 mmHg (80-100)
[2022-07-19] MEDS: ALBUTEROL NEB 2.5 MG/3 ML INH SCH ×5 (01:34→19:01)
[2022-07-19] MEDS: SODIUM CHLORIDE FLUSH 0.9% 10 ML SYRINGE IVP SCH ×4 (01:34→21:02)
[2022-07-19 04:31] LABS: BASOPHILS % (AUTO) 0.2 %; EOSINOPHILS % (AUTO) 0.2 %; HCT - HEMATOCRIT 38.5 % (37.0-47.0); HGB - HEMOGLOBIN 13.4 g/dL (12.0-16.0); LYMPHOCYTES % (AUTO) 6.7 %; MEAN CORPUSCULAR HEMOGLOBIN 37.2 pg (27.0-31.0); MEAN CORPUSCULAR HGB CONC 34.8 g/dL (32.0-36.0); MEAN CORPUSCULAR VOLUME 106.9 fL (81.0-99.0); MEAN PLATELET VOLUME 8.9 fL (7.9-10.8); MONOCYTES % (AUTO) 2.7 %; NEUTROPHILS % (AUTO) 83.1 %; PLT - PLATELET COUNT 217 10^3/uL (130-450); RED CELL DISTRIBUTION WIDTH 14.6 % (12.0-15.0); WHITE BLOOD COUNT 10.1 x10^3/uL (4.8-10.8)
[2022-07-19 04:37] LABS: ABNORMAL LYMPHS % (MANUAL) 0 %
[2022-07-19 04:44] LABS: CALCIUM 8.3 mg/dL (8.5-10.3); CREATININE 0.5 mg/dL (0.4-1.0); MAGNESIUM 1.8 mg/dL (1.7-2.8); PHOSPHORUS 2.6 mg/dL (2.5-4.6); POTASSIUM 4.3 mmol/L (3.5-5.0)
[2022-07-19 04:47] LABS: CALCIUM, IONIZED 1.17 mmol/L (1.15-1.33); VBG PH 7.367 (7.31-7.41)
[2022-07-19 04:59] LABS: BAND NEUTROPHILS % (MANUAL) 5 %; DIFFERENTIAL COMMENT MANUAL DIFFERENTIAL; LYMPHOCYTES # (MANUAL) 0.9 10^3/uL (1.5-3.5); LYMPHOCYTES % (MANUAL) 9 %; METAMYELOCYTES % (MANUAL) 2 %; MONOCYTES # (MANUAL) 0.2 10^3/uL (0.0-1.0); MYELOCYTES % (MANUAL) 2 %; NEUTROPHILS # (MANUAL) 8.6 10^3/uL (1.5-6.6); PLATELET ESTIMATE, MANUAL NORMAL (130-450,000) (NORMAL); RBC MORPHOLOGY (MULTIPLE) NORMAL APPEARANCE (NORMAL)
[2022-07-19 05:09] LABS: FOLATE 4.89 ng/mL (5.90 - >24.8)
[2022-07-19] MEDS ORDERED: THIAMINE 100 MG TABLET PO SCH (09:00)
[2022-07-19] MEDS ORDERED: SODIUM CHLORIDE 0.9% 500 ML IV ONE (09:03)
[2022-07-19] MEDS: FAMOTIDINE 20 MG/2 ML VIAL IVP SCH ×2 (09:12→21:01)
[2022-07-19] MEDS: ENOXAPARIN 40 MG/0.4 ML SYRINGE SUBQ SCH (09:13)
[2022-07-19] MEDS: cefTRIAXone 2 GM in SODIUM CHLORIDE 0.9% MINIBAG 100 ML IV SCH (09:13)
[2022-07-19] MEDS: NICOTINE 14 MG PATCH TOP SCH (09:17)
[2022-07-19] MEDS: THIAMINE INJ 100 MG in SODIUM CHLORIDE 0.9% 50 ML IV SCH (10:47)
[2022-07-19] MEDS: CHLORHEXIDINE GLUCONATE 15 ML UDC PO SCH ×2 (10:47→21:01)
[2022-07-19] MEDS: fentaNYL 2,500 MCG in SODIUM CHLORIDE 0.9% 200 ML IV SCH (12:35)
--- NOTE | 2022-07-19 14:32 | PROVIDER PROGRESS NOTE ---
Subjective - Subjective Pt reports feeling: No change (Sedated, on the ventilator) Objective - Vital Signs/Intake & Output Reviewed Vital Signs: Yes Vital Signs: Vital Signs Temp Pulse Pulse Resp BP Pulse Ox 07/19/22 14:00 37.2 C 80 18 120/77 98 07/19/22 13:00 37.4 C 96 18 119/71 96 07/19/22 12:00 37.6 C 93 24 142/76 H 98 07/19/22 11:58 98 18 07/19/22 11:44 76 07/19/22 11:00 37.6 C 85 18 134/78 H 98 Intake & Output: Intake & Output 07/16/22 07/17/22 07/18/22 07/19/22 23:59 23:59 23:59 23:59 Intake Total 4415.833 3883.167 8885.390 0347.138 Output Total 4250 072 0105 Balance 4415.833 2713.167 882.817 294.138 - Objective General Appearance: positive: Other (Sedated, on the ventilator) Eyes Bilateral: positive: No lid inflammation ENT: positive: No signs of dehydration Neck: positive: Nml inspection, Other (Cannot evaluate JVP due to obese neck) Respiratory: positive: Rales (Right midlung field anteriorly) Cardiovascular: positive: Regular rate & rhythm, Other (Distant heart sounds due to obesity and COPD) Abdomen: positive: Other (Obese, soft, has a pannus) Skin: positive: Warm, Dry Extremities: positive: No pedal edema Neurologic/Psychiatric: positive: Other (Sedated, on the vent) - Lab Results Fish Bones: 07/21/22 04:25 07/22/22 05:14 Other Labs: Lab Results x24hrs 07/19/22 07/19/22 07/19/22 Range/Units 04:21 04:21 04:21 WBC 10.1 (4.8-10.8) x10^3/uL RBC 3.60 L (4.20-5.40) 10^6/uL Hgb 13.4 (12.0-16.0) g/dL Hct 38.5 (37.0-47.0) % MCV 106.9 H (81.0-99.0) fL MCH 37.2 H (27.0-31.0) pg MCHC 34.8 (32.0-36.0) g/dL RDW 14.6 (12.0-15.0) % Plt Count 217 (130-450) 10^3/uL MPV 8.9 (7.9-10.8) fL Neut # (Auto) Not Reportable Lymph # (Auto) Not Reportable Houghton # (Auto) Not Reportable Eos # (Auto) Not Reportable Baso # (Auto) Not Reportable Absolute Nucleated RBC Not Reportable Total Counted 100 Band Neuts % (Manual) 5 (0 - 10) % Abnorm Lymph % (Manual) 0 % Metamyelocytes % 2 H ( - 0) % Myelocytes % 2 H ( - 0) % Nucleated RBC % Not Reportable Neutrophils # (Manual) 8.6 H (1.5-6.6) 10^3/uL Lymphocytes # (Manual) 0.9 L (1.5-3.5) 10^3/uL Monocytes # (Manual) 0.2 (0.0-1.0) 10^3/uL Eosinophils # (Manual) 0.0 (0-0.7) 10^3/uL Basophils # (Manual) 0.0 (0-0.1) 10^3/uL Differential Comment MANUAL DIFFERENTIAL Platelet Estimate NORMAL (130-450,000) (NORMAL) RBC Morph Micro Appear NORMAL APPEARANCE (NORMAL) Bld Gas Analysis Time Sample Site ABG pH (7.35-7.45) ABG pCO2 (34-45) mmHg ABG pO2 (80-100) mmHg ABG HCO3 (22.0-26.0) mmol/L ABG Total CO2 (21.0-29.0) MMOL/L ABG O2 Saturation (94-98) % ABG Base Excess (-2.0-3.0) mmol/L Galo Test VBG pH 7.367 (7.31-7.41) Ionized Calcium 1.17 (1.15-1.33) mmol/L O2 Delivery Device O2 Liters/Min LPM Vent Mode FiO2 PEEP cmH2O Sodium 135 (135-145) mmol/L Potassium 4.3 (3.5-5.0) mmol/L Chloride 100 L (101-111) mmol/L Carbon Dioxide 27 (21-32) mmol/L Anion Gap 8.0 (6-13) BUN 19 (6-20) mg/dL Creatinine 0.5 (0.4-1.0) mg/dL Estimated GFR (MDRD) 120 (>89) Glucose 100 (70-100) mg/dL Calcium 8.3 L (8.5-10.3) mg/dL Phosphorus 2.6 (2.5-4.6) mg/dL Magnesium 1.8 (1.7-2.8) mg/dL B-Natriuretic Peptide (5-100) pg/mL Vitamin B12 (180-914) pg/mL Folate (5.90 - >24.8) ng/mL Nasal Screen MRSA (PCR) (NEGATIVE) 07/19/22 07/19/22 07/19/22 Range/Units 04:21 04:21 01:20 WBC (4.8-10.8) x10^3/uL RBC (4.20-5.40) 10^6/uL Hgb (12.0-16.0) g/dL Hct (37.0-47.0) % MCV (81.0-99.0) fL MCH (27.0-31.0) pg MCHC (32.0-36.0) g/dL RDW (12.0-15.0) % Plt Count (130-450) 10^3/uL MPV (7.9-10.8) fL Neut # (Auto) Lymph # (Auto) Houghton # (Auto) Eos # (Auto) Baso # (Auto) Absolute Nucleated RBC Total Counted Band Neuts % (Manual) (0 - 10) % Abnorm Lymph % (Manual) % Metamyelocytes % ( - 0) % Myelocytes % ( - 0) % Nucleated RBC % Neutrophils # (Manual) (1.5-6.6) 10^3/uL Lymphocytes # (Manual) (1.5-3.5) 10^3/uL Monocytes # (Manual) (0.0-1.0) 10^3/uL Eosinophils # (Manual) (0-0.7) 10^3/uL Basophils # (Manual) (0-0.1) 10^3/uL Differential Comment Platelet Estimate (NORMAL) RBC Morph Micro Appear (NORMAL) Bld Gas Analysis Time 0128 Sample Site RIGHT RADIAL ABG pH 7.37 (7.35-7.45) ABG pCO2 51 H (34-45) mmHg ABG pO2 250 H* (80-100) mmHg ABG HCO3 28.9 H (22.0-26.0) mmol/L ABG Total CO2 30.5 H (21.0-29.0) MMOL/L ABG O2 Saturation 100 H (94-98) % ABG Base Excess 2.6 (-2.0-3.0) mmol/L Galo Test NOT APPLICABLE VBG pH (7.31-7.41) Ionized Calcium (1.15-1.33) mmol/L O2 Delivery Device VENTILATOR O2 Liters/Min LPM Vent Mode PC20 FiO2 100.00 PEEP 8 cmH2O Sodium (135-145) mmol/L Potassium (3.5-5.0) mmol/L Chloride (101-111) mmol/L Carbon Dioxide (21-32) mmol/L Anion Gap (6-13) BUN (6-20) mg/dL Creatinine (0.4-1.0) mg/dL Estimated GFR (MDRD) (>89) Glucose (70-100) mg/dL Calcium (8.5-10.3) mg/dL Phosphorus (2.5-4.6) mg/dL Magnesium (1.7-2.8) mg/dL B-Natriuretic Peptide 252 H (5-100) pg/mL Vitamin B12 296 (180-914) pg/mL Folate 4.89 L (5.90 - >24.8) ng/mL Nasal Screen MRSA (PCR) (NEGATIVE) 07/18/22 07/18/22 Range/Units 18:40 15:06 WBC (4.8-10.8) x10^3/uL RBC (4.20-5.40) 10^6/uL Hgb (12.0-16.0) g/dL Hct (37.0-47.0) % MCV (81.0-99.0) fL MCH (27.0-31.0) pg MCHC (32.0-36.0) g/dL RDW (12.0-15.0) % Plt Count (130-450) 10^3/uL MPV (7.9-10.8) fL Neut # (Auto) Lymph # (Auto) [place]oughton # (Auto) Eos # (Auto) Baso # (Auto) Absolute Nucleated RBC Total Counted Band Neuts % (Manual) (0 - 10) % Abnorm Lymph % (Manual) % Metamyelocytes % ( - 0) % Myelocytes % ( - 0) % Nucleated RBC % Neutrophils # (Manual) (1.5-6.6) 10^3/uL Lymphocytes # (Manual) (1.5-3.5) 10^3/uL Monocytes # (Manual) (0.0-1.0) 10^3/uL Eosinophils # (Manual) (0-0.7) 10^3/uL Basophils # (Manual) (0-0.1) 10^3/uL Differential Comment Platelet Estimate (NORMAL) RBC Morph Micro Appear (NORMAL) Bld Gas Analysis Time 1854 Sample Site RIGHT RADIAL ABG pH 7.24 L (7.35-7.45) ABG pCO2 67 H* (34-45) mmHg ABG pO2 76 L (80-100) mmHg ABG HCO3 28.2 H (22.0-26.0) mmol/L ABG Total CO2 30.3 H (21.0-29.0) MMOL/L ABG O2 Saturation 94 (94-98) % ABG Base Excess -1.1 (-2.0-3.0) mmol/L Galo Test POSITIVE VBG pH (7.31-7.41) Ionized Calcium (1.15-1.33) mmol/L O2 Delivery Device NON REBREATHER MASK O2 Liters/Min 15.00 LPM Vent Mode FiO2 100.00 PEEP cmH2O Sodium (135-145) mmol/L Potassium (3.5-5.0) mmol/L Chloride (101-111) mmol/L Carbon Dioxide (21-32) mmol/L Anion Gap (6-13) BUN (6-20) mg/dL Creatinine (0.4-1.0) mg/dL Estimated GFR (MDRD) (>89) Glucose (70-100) mg/dL Calcium (8.5-10.3) mg/dL Phosphorus (2.5-4.6) mg/dL Magnesium (1.7-2.8) mg/dL B-Natriuretic Peptide (5-100) pg/mL Vitamin B12 (180-914) pg/mL Folate (5.90 - >24.8) ng/mL Nasal Screen MRSA (PCR) NEGATIVE (NEGATIVE) Assessment/Plan - Problem List (1) Alcohol withdrawal delirium Impression: During late night of 07/16, the patient reported visual hallucinations of lions and tigers in her room. Initially we believed this was a result of hyponatremia or from iatrogenic hyperthyroidism (excessive Synthroid, based on very low TSH result). Throughout the night of 07/17 until morning of 07/18, the patient believed she was on a ship going to [place] and was very anxious. She even sent multiple lengthy texts to her son about how she was on a boat. Furthermore, she also assigned nicknames to all the nursing staff, such as 'cinda fairy', 'the head master', and 'tiny flower'. I had a suspicion that she was going through alcohol withdrawal, based on having a high MCV, and that it is 48 houyrs since admission, I ordered a CIWA score which was 14. Initially, the patient did not report alcohol use. However, after speaking with her son Ha at bedside 07/18, he reported that she has been mixing cheap boxed wine and more expensive bottled wine in an old orange juice gallon container. She then mixes this concoction with toy sophie. She drinks this from noon until she goes to sleep at about 2200. Ha estimates that she drinks 1.5L of wine daily. The patient herself has not admitted to her alcohol habits and was even embarrassed to admit her 50+ years smoking habits on this admission. The patient continued to be confused and agitated. She was not speaking coherently and was not oriented to place or time. I ordered IV Ativan 2 mg x1 and a STAT head CT to rule out CVA. Head CT found: No acute intracranial abnormality Patient was transferred to the ICU after returning from CT. CIWA protocal ordered, with iv Ativan drip. On the Ativan drip, she was less combative but became more hypopneic and a blood gas was ordered (see #2 #3) Thiamine supplementation started. Plan: Remain in the ICU, on the vent, on IV Ativan for sedation while on the vent, and to treat her alcohol withdrawal. We will also add IV fentanyl drip for sedation, since she is "light" on iv Ativan only. No extubation is planned today. She still needs another day of IV Ativan for alcohol withdrawal in my estimation (2) Acute respiratory failure with hypoxia Assessment/Plan: On 07/15, EMS arrived to find patient with a pulse ox of 78% on room air, which subsequently improved with 4L/min nasal cannula oxygen to 89-91%. During her ER stay, she required between 4-6L of supplemental oxygen. She does have COPD, but does not use supplemental oxygen at home. Her O2 supplement has been relatively stable as we are treating her COPD and pneumonia On07/18, the patient went into alcohol withdrawal. Her O2 sat was 88% on 4L nasal cannula. She was then placed on an oxygen mask with 12L/min oxygen. This brought her O2 sat up to 94%. After starting iv Ativan, the patient developed respiratory distress, became tachypneic (rate of 32), tachycardic (102), and was placed on a non-rebreather mask. Then an ABG was ordered and showed severe respiratory acidosis. She was intubated (see #3) and I called the son on 07/18 and updated him. Plan: Remain in ICU No extubation is planned today. She still needs another day of IV Ativan for alcohol withdrawal in my estimation (3) On mechanically assisted ventilation Patient needed IV Ativan drip to manage severe alcohol withdrawal delirium which made her hypoxic and hypercapnic. ABG showed pH 7.24, PCO2 67 Intubation was requested, and the ED provider came to the ICU and she was intubated after receiving sedatives that he ordered, on 07/18. Plan: Remain in ICU, on the vent. Remain on IV Ativan as her sedative, which will help treat her alcohol withdrawal and provide sedation while on the vent No extubation is planned today. She still needs another day of IV Ativan for alcohol withdrawal in my estimation I believe she will probably be extubated soon, therefore will not start NG tube feeds Continue IV Pepcid BID for stress ulcer prophylaxis (4) Pneumonia Conclusion/Plan: Patient has right upper lobe pneumonia with mild left upper pneumonia. She took one dose of PO azithromycin 500 mg at home on 07/15. On 07/16, she was given azithromycin IV and started on ceftriaxone IV. CXR from 07/16: Right upper lobe consolidation compatible with lobar pneumonia CT chest w/ IV contrast from 07/16: Right upper lobe consolidation consistent with pneumonia. Mild pneumonia is also seen in the left upper lobe. Bilateral pleural effusions (small on the right and trace on the left). Mediastinal and hilar lymphadenopathy, most likely reactive in the setting of pneumonia. A 5 mm nodule found along the LEFT major fissure. Mild cardiomegaly with severe coronary atherosclerosis. Plan: Continue oxygen supplementation, now on a vent Continue IV azithromycin and ceftriaxone Continue nebulizers Qualifiers: Pneumonia type: due to unspecified organism Laterality: bilateral Lung location: upper lobe of lung Qualified Code(s): J18.9 - Pneumonia, unspecified organism (5) COPD with exacerbation Conclusion/Plan: Patient has a history of COPD likely due to her extensive smoking history (56 years) and being a "chain smoker". At baseline, she does not require supplemental oxygen; however, she has needed at least 4L/min of oxygen to keep her O2 sat in the low 90%. Initially, nebulized bronchodilator treatments resulted in significant improvement in her ability to breathe, but is still very short of breath when walking. Today 07/18, her breathing worsened due to IV Ativan that was needed for treating her acute alcohol withdrawal. She was then placed on an oxygen mask with 12L/min oxygen. She then needed to be intubated today Plan: Continue bronchodilator nebulizer treatments Continue supplemental oxygen, now on the vent (6) Hyponatremia Conclusion/Plan: This was likely hypovolemic hyponatremia due to not eating much in the last few weeks and also alcohol abuse. Patient reports she has not been hungry because of grief after her . On admission, she was hyponatremic and her sodium level was 123. On 07/17, it has improved to 128. When I went to visit with the patient on 07/17, she did not remember that we had a lengthy conversation yesterday about her late . Initially, I thought this was due to her low sodium levels yesterday. Today 07/18, her BNP came back high at 229. Her sodium increased to 132. A CXR was done that showed volume overload Plan: Stop IVF No more restriction of free water needed (7) Incidental lung nodule, > 3mm and < 8mm Conclusion/Plan: Though chest CT was initially ordered by the ER to rule out rib fractures from her fall, several lung findings were noted. These are especially concerning given the patient's extensive smoking history (56 years) Chest CT w/contrast from 5/2 found a 5 mm nodule along the LEFT major fissure. In addition, there was also mediastinal and hilar adenopathy, a 1.8 cm right paratracheal lymph node, a 1.3 cm clustered AP window lymph node, a 1.3 cm right hilar lymph node, and a 1 cm left hilar lymph node NOTE- Initial radiology report described a 5 mm right-sided nodule, however, it has subsequently been corrected to LEFT-sided nodule. I discussed these findings with the patient, and she expressed understanding. The next morning on 07/17, the nurse reported that the patient was very anxious and worrying about what will happen to her disabled son when she passes away. Plan: Follow up CT recommended in 6-12 months. Then, again at 18-24 months if no change. Cont to treat pneumonia with IV antibiotics which could help with the adenopathy (8) Iatrogenic hyperthyroidism Assessment/Plan: Patient has a history of hypothyroidism for which she takes levothyroxine 125 mcg at home. She has not been on this medication during her stay here. On 07/17, we discovered that her TSH was <0.08. I believe the patient is over treating herself with her levothyroxine, especially now that she is down 30 pounds. Her current hyperthyroidism could be contributing to many of her symptoms including anxiety, brief episode of PSVT, dyspnea, weight loss, and confusion. Plan: Decrease Levothyroxine dose to 112 mcg (9) Tobacco abuse disorder Conclusion/Plan: She has been smoking since she was 21 years old and has never been able to quit despite multiple attempts, including hypnotherapy. She has decreased from 3 packs daily to ~8 cigarettes daily over time. She was very embarrassed to speak about her smoking habits in front of her family and even became tearful when speaking about it. On 07/17, she described herself as being a "chain smoker". She also admitted to us that she has been smoking more since her to help manage her grief. Plan: Nicotine patch daily (10) PSVT (paroxysmal supraventricular tachycardia) Conclusion/Plan: RESOLVED On 07/16 at approximately 13:45, patient had a brief run of PSVT. I suspect this was caused by her current lung disease, however I will also check for hyperthyroidism. On 07/17, her TSH was <0.08, indicating overtreatment with her levothyroxine. Plan: Monitor for any changes Continue telemetry
--- NOTE | 2022-07-19 17:54 | PROVIDER PROGRESS NOTE ---
Assessment/Plan - Problem List (1) Alcohol withdrawal delirium Assessment/Plan: The night of 07/16, the patient reported visual hallucinations of lions and tigers in her room. Initially we believed this was a result of hyponatremia or from iatrogenic hyperthyroidism (excessive Synthroid, based on very low TSH result). Throughout the night of 07/17 until now 07/18, the patient believed she was on a ship going to [place] and was very anxious. She even sent multiple lengthy texts to her son about how she was on a boat. Furthermore, she also assigned nicknames to all the nursing staff, such as 'cinda rodriguez', 'the head master', and 'tiny flower'. I had a suspicion that she was going through alcohol withdrawal, based on having a high MCV, and that it is 48 houyrs since admission, I ordered a CIWA score which was 14. Initially, the patient did not report alcohol use. However, after speaking with her son Ha at bedside today 07/18, he reports that she has been mixing cheap boxed wine and more expensive bottled wine in an old orange juice gallon container. She then mixes this concoction with toy sophie. She drinks this from noon until she goes to sleep at about 2200. Ha estimates that she drinks 1.5L of wine daily. The patient herself has not admitted to her alcohol habits and was even embarrassed to admit her 50+ years smoking habits on this admission. The patient continued to be confused and agitated. She was not speaking coherently and was not oriented to place or time. I ordered IV Ativan 2 mg x1 and a STAT head CT to rule out CVA. Head CT found: No acute intracranial abnormality Plan: Patient was transferred to the ICU after returning from CT. CIWA protocal ordered, with Ativan 1 mg low-iv protocol. Thiamine supplementation started. She continued to need Ativan IV pushes every 15 to 30 minutes, due to scoring high on the CIWA protocol. Therefore IV Ativan drip in the ICU was ordered. On the Ativan drip, she was l;ess combative but became more hypopneic and a blood gas was ordered (see #2 #3) (2) Acute respiratory failure with hypoxia Assessment/Plan: On 07/15, EMS arrived to find patient with a pulse ox of 78% on room air, which subsequently improved with 4L/min nasal cannula oxygen to 89-91%. During her ER stay, she required between 4-6L of supplemental oxygen. She does have COPD, but does not use supplemental oxygen at home. Her O2 supplement has been relatively stable as we are treating her COPD and pneumonia Today 07/18, the patient went into alcohol withdrawal. Her O2 sat was 88% on 4L nasal cannula. She was then placed on an oxygen mask with 12L/min oxygen. This brought her O2 sat up to 94%. After starting iv Ativan, the patient developed respiratory distress, became tachypneic (rate of 32), tachycardic (102), and was placed on a non-rebreather mask. Plan: Remain in ICU An ABG was ordered and showed severe respiratory acidosis. The patient will need intubation (see #3). I called the son and updated him. (3) On mechanically assisted ventilation Patient needed IV Ativan today to manage severe alcohol withdrawal delirium which made her hypoxic and hypercapnic. ABG showed pH 7.24, PCO2 67 (labs reviwed). Plan: Intubation requested, and the ED provider came to the ICU and she was intubated after receiving sedatives that he ordered. Remain on IV Ativan as her sedative, which will help treat her alcohol withdrawal and provide sedation while on the vent Critical care time spent: 65 minutes (starting CIWA protocol IV Ativan, transferring to ICU, starting IV Ativan drip, evaluating labs, ordering ABG, reevaluating patient, ordering intubation, reevaluating patient, changing meds, met with son Ha at bedside and later a call to Ha to update him on her nee ding intubation and her critical status). (4) Pneumonia Conclusion/Plan: Patient has right upper lobe pneumonia with mild left upper pneumonia. She took one dose of PO azithromycin 500 mg at home on 07/15. On 07/16, she was given azithromycin IV and started on ceftriaxone IV. CXR from 07/16: Right upper lobe consolidation compatible with lobar pneumonia CT chest w/ IV contrast from 07/16: Right upper lobe consolidation consistent with pneumonia. Mild pneumonia is also seen in the left upper lobe. Bilateral pleural effusions (small on the right and trace on the left). Mediastinal and hilar lymphadenopathy, most likely reactive in the setting of pneumonia. A 5 mm nodule found along the LEFT major fissure. Mild cardiomegaly with severe coronary atherosclerosis. Plan: Continue oxygen supplementation, now on a vent Continue IV azithromycin and ceftriaxone Continue nebulizers Qualifiers: Pneumonia type: due to unspecified organism Laterality: bilateral Lung location: upper lobe of lung Qualified Code(s): J18.9 - Pneumonia, unspecified organism (5) COPD with exacerbation Conclusion/Plan: Patient has a history of COPD likely due to her extensive smoking history (56 years) and being a "chain smoker". At baseline, she does not require supplemental oxygen; however, she has needed at least 4L/min of oxygen to keep her O2 sat in the low 90%. Initially, nebulized bronchodilator treatments resulted in significant improvement in her ability to breathe, but is still very short of breath when walking. Today 07/18, her breathing worsened due to IV Ativan that was needed for treating her acute alcohol withdrawal. She was then placed on an oxygen mask with 12L/min oxygen. She then needed to be intubated today Plan: Continue bronchodilator nebulizer treatments Continue supplemental oxygen, now on the vent (6) Hyponatremia Conclusion/Plan: This was likely hypovolemic hyponatremia due to not eating much in the last few weeks and also alcohol abuse. Patient reports she has not been hungry because of grief after her . On admission, she was hyponatremic and her sodium level was 123. On 07/17, it has improved to 128. When I went to visit with the patient on 07/17, she did not remember that we had a lengthy conversation yesterday about her late . Initially, I thought this was due to her low sodium levels yesterday. Today 07/18, her BNP came back high at 229. Her sodium increased to 132. A CXR was done that showed volume overload Plan: Stop IVF No more restriction of free water needed (7) Incidental lung nodule, > 3mm and < 8mm Conclusion/Plan: Though chest CT was initially ordered by the ER to rule out rib fractures from her fall, several lung findings were noted. These are especially concerning given the patient's extensive smoking history (56 years) Chest CT w/contrast from 07/16 found a 5 mm nodule along the LEFT major fissure. In addition, there was also mediastinal and hilar adenopathy, a 1.8 cm right paratracheal lymph node, a 1.3 cm clustered AP window lymph node, a 1.3 cm right hilar lymph node, and a 1 cm left hilar lymph node NOTE- Initial radiology report described a 5 mm right-sided nodule, however, it has subsequently been corrected to LEFT-sided nodule. I discussed these findings with the patient, and she expressed understanding. The next morning on 07/17, the nurse reported that the patient was very anxious and worrying about what will happen to her disabled son when she passes away. Plan: Follow up CT recommended in 6-12 months. Then, again at 18-24 months if no change. Cont to treat pneumonia with IV antibiotics which could help with the adenopathy (8) Iatrogenic hyperthyroidism Assessment/Plan: Patient has a history of hypothyroidism for which she takes levothyroxine 125 mcg at home. She has not been on this medication during her stay here. On 07/17, we discovered that her TSH was <0.08. I believe the patient is over treating herself with her levothyroxine, especially now that she is down 30 pounds. Her current hyperthyroidism could be contributing to many of her symptoms i ncluding anxiety, brief episode of PSVT, dyspnea, weight loss, and confusion. Plan: Decrease Levothyroxine dose to 112 mcg (9) Tobacco abuse disorder Conclusion/Plan: She has been smoking since she was 21 years old and has never been able to quit despite multiple attempts, including hypnotherapy. She has decreased from 3 packs daily to ~8 cigarettes daily over time. She was very embarrassed to speak about her smoking habits in front of her family and even became tearful when speaking about it. On 07/17, she described herself as being a "chain smoker". She also admitted to us that she has been smoking more since her to help manage her grief. Plan: Nicotine patch daily (10) PSVT (paroxysmal supraventricular tachycardia) Conclusion/Plan: RESOLVED On 07/16 at approximately 13:45, patient had a brief run of PSVT. I suspect this was caused by her current lung disease, however I will also check for hyperthyroidism. On 07/17, her TSH was <0.08, indicating overtreatment with her levothyroxine. Plan: Monitor for any changes Continue telemetry - Current Meds Current Meds: Current Medications Generic Name Dose Route Start Last Admin Trade Name Freq PRN Reason Stop Dose Admin Albuterol 2.5 mg 07/16/22 15:00 07/19/22 15:35 Albuterol Neb 2.5 Mg/3 Ml INH Not Given RTQID DARREN Chlorhexidine Gluconate 15 ml 07/19/22 10:00 07/19/22 10:47 Chlorhexidine Gluconate 15 Ml Udc PO 15 ml BID DARREN Administration Enoxaparin Sodium 40 mg 07/16/22 12:00 07/19/22 09:13 Enoxaparin 40 Mg/0.4 Ml Syringe SUBQ 40 mg DAILY DARREN Administration Famotidine 20 mg 07/18/22 21:00 07/19/22 09:12 Famotidine 20 Mg/2 Ml Vial IVP 20 mg BID DARREN Administration Ceftriaxone Sodium 2 gm/ 100 mls @ 200 mls/hr 07/17/22 09:00 07/19/22 09:50 Sodium Chloride IV Infused DAILY DARREN Infusion Thiamine HCl 100 mg/ Sodium 51 mls @ 100 mls/hr 07/18/22 11:00 07/19/22 11:20 Chloride IV Infused DAILY DARREN Infusion Acetaminophen 1,000 mg in 100 mls @ 400 mls/hr 07/18/22 14:38 07/19/22 06:40 Acetaminophen IV Infused Q6HR PRN Infusion Pain or Fever > 38C (100.4F) Dextrose/Sodium Chloride 1,000 mls @ 40 mls/hr 07/18/22 15:00 07/19/22 07:00 D5ns IV 40 mls/hr .Q25H DARREN Infusion Lorazepam 100 mls @ 0.845 mls/hr 07/18/22 19:10 07/19/22 16:51 Ativan IV 0.04 mg/kg/hr .Q72H DARREN 3.38 mls/hr Titration Protocol 0.01 MG/KG/HR Fentanyl 2,500 mcg/ Sodium 250 mls @ 8.45 mls/hr 07/19/22 12:00 07/19/22 12:35 Chloride IV 1 mcg/kg/hr .[id number] DARREN 8.45 mls/hr Administration Protocol 1 MCG/KG/HR Lorazepam 1 mg 07/18/22 12:28 07/18/22 15:37 Lorazepam 2 Mg/Ml Vial IVP 1 mg Q30M PRN Administration CIWA >8 Protocol Nicotine 1 patch 07/16/22 16:09 07/19/22 09:17 Nicotine 14 Mg Patch TOP 1 patch DAILY DARREN Administration Sodium Chloride 10 ml 07/16/22 17:00 07/19/22 09:20 Sodium Chloride Flush 0.9% 10 Ml Syringe IVP 10 ml 0100,0900,1700 DARREN Administration - Lab Result Fish Bone Diagrams: 07/20/22 08:16 07/20/22 08:16 - Additional Planning My Orders: My Active Orders 07/18/22 18:33 RT - Obtain Arterial Specimen [RC] .ONCE 07/18/22 19:10 LORazepam 100MG/100ML D5W [Ativan] 100 ml IV 0.01 mg/kg/hr 07/18/22 20:36 Initial Ventilator Settings [RC] .ONCE 07/18/22 20:37 Ventilator Bundle Oral Care [RC] Q2H Ventilator Bundle [RC] Q8H Ventilator Care - ICU [RC] Q4HR 07/18/22 21:00 Famotidine [Pepcid] 20 mg IVP BID 07/19/22 01:13 RT - Obtain Arterial Specimen [RC] .ONCE 07/19/22 01:48 Sodium Chloride 0.9% [Normal Saline 0.9%] 500 ml IV Q24H 07/19/22 10:00 Chlorhexidine [Peridex] 15 ml PO BID 07/19/22 12:00 Sodium Chloride 0.9% [Normal Saline 0.9%] 200 ml fentaNYL 2,500 mcg IV 1 mcg/kg/hr 07/19/22 14:58 NonViolent Restraint(s) Q24H 07/20/22 05:00 CALCIUM, IONIZED ([facility]) [BG] DAILYLAB 07/21/22 05:00 CALCIUM, IONIZED ([facility]) [BG] DAILYLAB Subjective - Subjective Nursing Reports: Other (RN reports pt became very confused last night: She wrote a list of all her RNs & CNAs and next to them wrote nicknames that she made for all of them. Kept insisting she was on a boat to [place]. This morning she is trying to climb out of bed, swinging at her nurse and grabbing the nurse's scrub top.) Objective Vital Signs: Vital Signs - 24 hr 07/18/22 07/18/22 07/18/22 18:00 18:30 19:00 Temperature Heart Rate Heart Rate [ 108 H 114 H Brachial] Heart Rate [ Monitoring electrodes] Respiratory 34 H 34 H 34 H Rate Blood Pressure 153/89 H 164/90 H [Right Brachial artery] O2 Saturation 96 96 98 If not protocol 16 16 16 : Oxygen Flow, liters/minute 07/18/22 07/18/22 07/18/22 19:25 19:30 20:00 Temperature Heart Rate 116 H Heart Rate [ 111 H Brachial] Heart Rate [ Monitoring electrodes] Respiratory 34 H 15 Rate Blood Pressure [Right Brachial artery] O2 Saturation 98 94 If not protocol 16 : Oxygen Flow, liters/minute 07/18/22 07/18/22 07/18/22 20:05 21:00 22:00 Temperature 37.5 C 37.8 C Heart Rate Heart Rate [ Brachial] Heart Rate [ 113 H 104 H Monitoring electrodes] Respiratory 18 21 Rate Blood Pressure 162/107 H 134/79 H 141/20 H [Right Brachial artery] O2 Saturation 95 97 If not protocol : Oxygen Flow, liters/minute 07/18/22 07/18/22 07/18/22 22:30 23:00 23:52 Temperature 38.0 C H Heart Rate 107 H Heart Rate [ Brachial] Heart Rate [ 105 H 102 H Monitoring electrodes] Respiratory 23 21 Rate Blood Pressure 127/75 124/78 [Right Brachial artery] O2 Saturation 98 98 If not protocol : Oxygen Flow, liters/minute 07/19/22 07/19/22 07/19/22 01:00 01:04 01:37 Temperature 37.9 C Heart Rate 107 H 89 Heart Rate [ Brachial] Heart Rate [ 90 Monitoring electrodes] Respiratory 24 Rate Blood Pressure 124/69 [Right Brachial artery] O2 Saturation 98 If not protocol : Oxygen Flow, liters/minute 07/19/22 07/19/22 07/19/22 02:00 03:00 03:36 Temperature 37.7 C 37.6 C Heart Rate 86 Heart Rate [ Brachial] Heart Rate [ 87 86 Monitoring electrodes] Respiratory 21 20 Rate Blood Pressure 118/67 118/76 [Right Brachial artery] O2 Saturation 94 95 If not protocol : Oxygen Flow, liters/minute 07/19/22 07/19/22 07/19/22 04:00 04:46 05:00 Temperature 37.5 C 37.6 C Heart Rate 84 Heart Rate [ Brachial] Heart Rate [ 85 82 Monitoring electrodes] Respiratory 19 18 Rate Blood Pressure 129/101 H 124/70 [Right Brachial artery] O2 Saturation 93 95 If not protocol : Oxygen Flow, liters/minute 07/19/22 07/19/22 07/19/22 06:00 07:00 08:00 Temperature 37.7 C 37.6 C 37.7 C Heart Rate 88 Heart Rate [ Brachial] Heart Rate [ 81 83 83 Monitoring electrodes] Respiratory 18 18 18 Rate Blood Pressure 126/75 132/82 H 129/81 H [Right Brachial artery] O2 Saturation 97 96 97 If not protocol : Oxygen Flow, liters/minute 07/19/22 07/19/22 07/19/22 09:00 09:02 10:00 Temperature 37.6 C Heart Rate 86 Heart Rate [ Brachial] Heart Rate [ 86 82 Monitoring electrodes] Respiratory 18 18 Rate Blood Pressure 135/90 H 139/77 H [Right Brachial artery] O2 Saturation 97 97 If not protocol : Oxygen Flow, liters/minute 07/19/22 07/19/22 07/19/22 11:00 11:44 11:58 Temperature 37.6 C Heart Rate 76 98 Heart Rate [ Brachial] Heart Rate [ 85 Monitoring electrodes] Respiratory 18 18 Rate Blood Pressure 134/78 H [Right Brachial artery] O2 Saturation 98 If not protocol : Oxygen Flow, liters/minute 07/19/22 07/19/22 07/19/22 12:00 13:00 14:00 Temperature 37.6 C 37.4 C 37.2 C Heart Rate Heart Rate [ Brachial] Heart Rate [ 93 96 80 Monitoring electrodes] Respiratory 24 18 18 Rate Blood Pressure 142/76 H 119/71 120/77 [Right Brachial artery] O2 Saturation 98 96 98 If not protocol : Oxygen Flow, liters/minute 07/19/22 07/19/22 07/19/22 15:00 15:26 15:39 Temperature 37.2 C Heart Rate 78 78 Heart Rate [ Brachial] Heart Rate [ 77 Monitoring electrodes] Respiratory 18 18 Rate Blood Pressure 129/84 H [Right Brachial artery] O2 Saturation 99 If not protocol : Oxygen Flow, liters/minute 07/19/22 07/19/22 16:00 17:00 Temperature 37.4 C 37.4 C Heart Rate Heart Rate [ Brachial] Heart Rate [ 79 74 Monitoring electrodes] Respiratory 18 18 Rate Blood Pressure 121/74 120/67 [Right Brachial artery] O2 Saturation 93 95 If not protocol : Oxygen Flow, liters/minute Oxygen O2 Source Mechanical ventilator I&O (Last 24 Hrs): Intake and Output Totals x24h 07/17/22 07/18/22 07/19/22 23:59 23:59 23:59 Intake Total 3883.167 7716.614 9382.643 Output Total 2829 622 8829 Balance 2713.167 882.817 239.643 General: Moderate distress (Confusion) HEENT: Mucous membr. moist/pink, Other (wearing O2 n.c.) Neck: Supple Neuro: Disoriented (She thinks she is on a boat), Other (Combative and delirious) Cardiovascular: Regular rate Respiratory: Other (Cannot auscultate her chest while she is combative) Abdomen: Other (Cannot examine her abdomen while she is combative, sitting up, trying to climb out of bed) Extremities: No clubbing, No edema - Results Results: Laboratory Results WBC 10.1 x10^3/uL (4.8-10.8) 07/19/22 04:21 RBC 3.60 10^6/uL (4.20-5.40) L 07/19/22 04:21 Hgb 13.4 g/dL (12.0-16.0) 07/19/22 04:21 Hct 38.5 % (37.0-47.0) 07/19/22 04:21 MCV 106.9 fL (81.0-99.0) H 07/19/22 04:21 MCH 37.2 pg (27.0-31.0) H 07/19/22 04:21 MCHC 34.8 g/dL (32.0-36.0) 07/19/22 04:21 RDW 14.6 % (12.0-15.0) 07/19/22 04:21 Plt Count 217 10^3/uL (130-450) 07/19/22 04:21 MPV 8.9 fL (7.9-10.8) 07/19/22 04:21 Neut # (Auto) Not Reportable 07/19/22 04:21 Lymph # (Auto) Not Reportable 07/19/22 04:21 [place] # (Auto) Not Reportable 07/19/22 04:21 Eos # (Auto) Not Reportable 07/19/22 04:21 Baso # (Auto) Not Reportable 07/19/22 04:21 Absolute Nucleated RBC Not Reportable 07/19/22 04:21 Total Counted 100 07/19/22 04:21 Band Neuts % (Manual) 5 % (0-10) 07/19/22 04:21 Abnorm Lymph % (Manual) 0 % 07/19/22 04:21 Metamyelocytes % 2 % (-0) H 07/19/22 04:21 Myelocytes % 2 % (-0) H 07/19/22 04:21 Nucleated RBC % Not Reportable 07/19/22 04:21 Neutrophils # (Manual) 8.6 10^3/uL (1.5-6.6) H 07/19/22 04:21 Lymphocytes # (Manual) 0.9 10^3/uL (1.5-3.5) L 07/19/22 04:21 Monocytes # (Manual) 0.2 10^3/uL (0.0-1.0) 07/19/22 04:21 Eosinophils # (Manual) 0.0 10^3/uL (0-0.7) 07/19/22 04:21 Basophils # (Manual) 0.0 10^3/uL (0-0.1) 07/19/22 04:21 Differential Comment MANUAL DIFFERENTIAL 07/19/22 04:21 WBC Morphology NORMAL APPEARANCE (NORMAL) 07/17/22 04:45 Platelet Estimate NORMAL (130-450,000) (NORMAL) 07/19/22 04:21 Platelet Morphology NORMAL APPEARANCE (NORMAL) 07/17/22 04:45 RBC Morph Micro Appear NORMAL APPEARANCE (NORMAL) 07/19/22 04:21 Bld Gas Analysis Time 0128 07/19/22 01:20 Sample Site RIGHT RADIAL 07/19/22 01:20 ABG pH 7.37 (7.35-7.45) 07/19/22 01:20 ABG pCO2 51 mmHg (34-45) H 07/19/22 01:20 ABG pO2 250 mmHg (80-100) H* 07/19/22 01:20 ABG HCO3 28.9 mmol/L (22.0-26.0) H 07/19/22 01:20 ABG Total CO2 30.5 MMOL/L (21.0-29.0) H 07/19/22 01:20 ABG O2 Saturation 100 % (94-98) H 07/19/22 01:20 ABG Base Excess 2.6 mmol/L (-2.0-3.0) 07/19/22 01:20 Galo Test NOT APPLICABLE 07/19/22 01:20 VBG pH 7.367 (7.31-7.41) 07/19/22 04:21 Ionized Calcium 1.17 mmol/L (1.15-1.33) 07/19/22 04:21 O2 Delivery Device VENTILATOR 07/19/22 01:20 O2 Liters/Min 15.00 LPM 07/18/22 18:40 Vent Mode PC20 07/19/22 01:20 FiO2 100.00 07/19/22 01:20 PEEP 8 cmH2O 07/19/22 01:20 Sodium 135 mmol/L (135-145) 07/19/22 04:21 Potassium 4.3 mmol/L (3.5-5.0) 07/19/22 04:21 Chloride 100 mmol/L (101-111) L 07/19/22 04:21 Carbon Dioxide 27 mmol/L (21-32) 07/19/22 04:21 Anion Gap 8.0 (6-13) 07/19/22 04:21 BUN 19 mg/dL (6-20) 07/19/22 04:21 Creatinine 0.5 mg/dL (0.4-1.0) 07/19/22 04:21 Estimated GFR (MDRD) 120 (>89) 07/19/22 04:21 Glucose 100 mg/dL (70-100) 07/19/22 04:21 Lactic Acid 1.8 mmol/L (0.5-2.2) 07/16/22 00:42 Calcium 8.3 mg/dL (8.5-10.3) L 07/19/22 04:21 Phosphorus 2.6 mg/dL (2.5-4.6) 07/19/22 04:21 Magnesium 1.8 mg/dL (1.7-2.8) 07/19/22 04:21 Total Bilirubin 1.0 mg/dL (0.2-1.0) 07/15/22 22:28 AST 36 IU/L (10-42) 07/15/22 22:28 ALT 24 IU/L (10-60) 07/15/22 22:28 Alkaline Phosphatase 134 IU/L (42-121) H 07/15/22 22:28 B-Natriuretic Peptide 252 pg/mL (5-100) H 07/19/22 04:21 Total Protein 5.4 g/dL (6.7-8.2) L 07/15/22 22:28 Albumin 2.4 g/dL (3.2-5.5) L 07/15/22 22:28 Globulin 3.0 g/dL (2.1-4.2) 07/15/22 22:28 Albumin/Globulin Ratio 0.8 (1.0-2.2) L 07/15/22 22:28 Lipase 28 U/L (22-51) 07/15/22 22:28 Vitamin B12 296 pg/mL (180-914) 07/19/22 04:21 Folate 4.89 ng/mL (5.90 - >24.8) L 07/19/22 04:21 TSH < 0.08 uIU/mL (0.34-5.60) L 07/17/22 04:45 Urine Color YELLOW 07/16/22 00:12 Urine Clarity CLEAR (CLEAR) 07/16/22 00:12 Urine pH 5.5 PH (5.0-7.5) 07/16/22 00:12 Ur Specific [place] 1.025 (1.002-1.030) 07/16/22 00:12 Urine Protein NEGATIVE mg/dL (NEGATIVE) 07/16/22 00:12 Urine Glucose (UA) NEGATIVE mg/dL (NEGATIVE) 07/16/22 00:12 Urine Ketones NEGATIVE mg/dL (NEGATIVE) 07/16/22 00:12 Urine Occult Blood NEGATIVE (NEGATIVE) 07/16/22 00:12 Urine Nitrite NEGATIVE (NEGATIVE) 07/16/22 00:12 Urine Bilirubin NEGATIVE (NEGATIVE) 07/16/22 00:12 Urine Urobilinogen 2 E.U./dL (NORMAL) H 07/16/22 00:12 Ur Leukocyte Esterase NEGATIVE (NEGATIVE) 07/16/22 00:12 Ur Microscopic Review NOT INDICATED 07/16/22 00:12 Urine Culture Comments NOT INDICATED 07/16/22 00:12 Nasal Adenovirus (PCR) NOT DETECTED 07/15/22 22:42 Nasal B. parapertussis DNA (PCR) NOT DETECTED 07/15/22 22:42 Nasal Coronavir 229E PCR NOT DETECTED 07/15/22 22:42 Nasal Coronavir HKU1 PCR NOT DETECTED 07/15/22 22:42 Nasal Coronavir NL63 PCR NOT DETECTED 07/15/22 22:42 Nasal Coronavir OC43 PCR NOT DETECTED 07/15/22 22:42 Nasal Enterovir/Rhinovir PCR NOT DETECTED 07/15/22 22:42 Nasal Influenza B PCR NOT DETECTED 07/15/22 22:42 Nasal Influenza A PCR NOT DETECTED 07/15/22 22:42 Nasal Parainfluen 1 PCR NOT DETECTED 07/15/22 22:42 Nasal Parainfluen 2 PCR NOT DETECTED 07/15/22 22:42 Nasal Parainfluen 3 PCR NOT DETECTED 07/15/22 22:42 Nasal Parainfluen 4 PCR NOT DETECTED 07/15/22 22:42 Nasal RSV (PCR) NOT DETECTED 07/15/22 22:42 Nasal Screen MRSA (PCR) NEGATIVE (NEGATIVE) 07/18/22 15:06 Nasal B.pertussis DNA PCR NOT DETECTED 07/15/22 22:42 Nasal C.pneumoniae (PCR) NOT DETECTED 07/15/22 22:42 Curtis Human Metapneumo PCR NOT DETECTED 07/15/22 22:42 Nasal M.pneumoniae (PCR) NOT DETECTED 07/15/22 22:42 Nasal SARS-CoV-2 (PCR) NOT DETECTED 07/15/22 22:42 - Procedures Procedures: Procedures REPLACEMENT OF RIGHT LENS WITH SYNTH SUB, PERC APPROACH (05/27/19)
[2022-07-19] MEDS: DEXTROSE 5%-0.9% NACL 1,000 ML IV SCH (18:00)
[2022-07-19] MEDS: LORazepam 100MG/100ML D5W 100 ML IV SCH (19:41)
[2022-07-19] MEDS ORDERED: MAGNESIUM SULFATE 2 GRAM 2 GM/50 ML BAG IV ONE (20:07)
[2022-07-19] MEDS: SODIUM CHLORIDE 0.9% 500 ML IV PRN (21:26)
[2022-07-19] MEDS: SODIUM CHLORIDE FLUSH 0.9% 10 ML SYRINGE IVP PRN (21:36)
[2022-07-20 04:45] LABS: CALCIUM, IONIZED 1.14 mmol/L (1.15-1.33); VBG PH 7.427 (7.31-7.41)
[2022-07-20 04:55] LABS: MAGNESIUM 2.3 mg/dL (1.7-2.8); PHOSPHORUS 2.5 mg/dL (2.5-4.6); POTASSIUM 3.9 mmol/L (3.5-5.0)
[2022-07-20] MEDS ORDERED: CALCIUM GLUC 1,000MG/50ML-NACL 1,000 MG/50 ML BAG IV ONE (05:28)
[2022-07-20] MEDS: POTASSIUM CHLOR 10 MEQ/100 ML 10 MEQ/100 ML BAG IV SCH ×2 (06:26→07:35)
[2022-07-20] MEDS: fentaNYL 2,500 MCG in SODIUM CHLORIDE 0.9% 200 ML IV SCH (06:41)
[2022-07-20 07:33] LABS: ABG PCO2 53 mmHg (34-45); ABG PH 7.36 (7.35-7.45)
[2022-07-20 07:34] LABS: ABG BASE EXCESS 2.5 mmol/L (-2.0-3.0); ABG HCO3 29.2 mmol/L (22.0-26.0); ABG OXYGEN SATURATION 93 % (94-98); ABG PO2 66 mmHg (80-100); ABG TCO2 30.8 MMOL/L (21.0-29.0); ALLEN TEST POSITIVE
[2022-07-20 07:35] LABS: ABG MODE OF VENTILATION SIMV; ABG RESPIRATORY RATE 16 b/min
[2022-07-20] MEDS: ALBUTEROL NEB 2.5 MG/3 ML INH SCH ×4 (07:54→18:18)
[2022-07-20 08:34] LABS: BASOPHILS % (AUTO) 0.6 %; EOSINOPHILS % (AUTO) 2.1 %; HGB - HEMOGLOBIN 12.7 g/dL (12.0-16.0); LYMPHOCYTES % (AUTO) 7.4 %; MEAN CORPUSCULAR HEMOGLOBIN 37.8 pg (27.0-31.0); MEAN CORPUSCULAR HGB CONC 35.3 g/dL (32.0-36.0); MEAN CORPUSCULAR VOLUME 107.1 fL (81.0-99.0); MEAN PLATELET VOLUME 9.4 fL (7.9-10.8); MONOCYTES % (AUTO) 2.8 %; NEUTROPHILS % (AUTO) 79.5 %; PLT - PLATELET COUNT 205 10^3/uL (130-450); RED BLOOD COUNT 3.36 10^6/uL (4.20-5.40); RED CELL DISTRIBUTION WIDTH 15.2 % (12.0-15.0); WHITE BLOOD COUNT 9.8 x10^3/uL (4.8-10.8)
[2022-07-20 08:38] LABS: SLIDE REVIEW? Indicated
[2022-07-20 08:54] LABS: ALBUMIN 1.7 g/dL (3.2-5.5); BILIRUBIN,DIRECT 0.2 mg/dL (0.1-0.5); BILIRUBIN,TOTAL 0.6 mg/dL (0.2-1.0); CALCIUM 7.8 mg/dL (8.5-10.3); CREATININE 0.4 mg/dL (0.4-1.0); POTASSIUM 4.2 mmol/L (3.5-5.0); TOTAL PROTEIN 4.6 g/dL (6.7-8.2)
--- NOTE | 2022-07-20 08:58 | XRAY Report ---
PROCEDURE: Chest 1 View X-Ray INDICATIONS: Intubated, F/U CHF and pneumonia TECHNIQUE: One view of the chest was acquired. COMPARISON: Chest x-ray 07/18/2022 FINDINGS: Surgical changes and devices: Endotracheal tube and nasogastric tubes are noted. Lungs and pleura: Persistent appearance of diffuse right hemithorax consolidative opacities although improved compared to prior exam. Similar although much lesser degree is noted on the left. Mediastinum: Mediastinal contours appear normal. Heart size is enlarged. Bones and chest wall: No suspicious bony lesions. Overlying soft tissues appear unremarkable. IMPRESSION: Diffuse consolidative opacities bilaterally with superimposed edema mildly improved, although remaini ng significant on the right. Reviewed by: Gabriela Ramirez MD on 07/20/2022 8:56 AM PDT Approved by: Gabriela Ramirez MD on 07/20/2022 8:56 AM PDT Station ID: [id number]
[2022-07-20] MEDS ORDERED: NICOTINE 7 MG PATCH TOP SCH (09:00)
[2022-07-20 09:02] LABS: ABNORMAL LYMPHS % (MANUAL) 0 %
[2022-07-20 09:13] LABS: BAND NEUTROPHILS % (MANUAL) 7 %; DIFFERENTIAL COMMENT MANUAL DIFFERENTIAL; EOSINOPHILS # (MANUAL) 0.3 10^3/uL (0-0.7); LYMPHOCYTES # (MANUAL) 0.7 10^3/uL (1.5-3.5); LYMPHOCYTES % (MANUAL) 5 %; MONOCYTES # (MANUAL) 0.1 10^3/uL (0.0-1.0); MYELOCYTES % (MANUAL) 3 %; NEUTROPHILS # (MANUAL) 8.4 10^3/uL (1.5-6.6); REACTIVE LYMPHS % (MANUAL) 2 %
[2022-07-20] MEDS: NICOTINE 14 MG PATCH TOP SCH (09:24)
[2022-07-20] MEDS: THIAMINE INJ 100 MG in SODIUM CHLORIDE 0.9% 50 ML IV SCH (09:24)
[2022-07-20] MEDS: ENOXAPARIN 40 MG/0.4 ML SYRINGE SUBQ SCH (09:25)
[2022-07-20] MEDS: cefTRIAXone 2 GM in SODIUM CHLORIDE 0.9% MINIBAG 100 ML IV SCH (09:26)
[2022-07-20] MEDS: CHLORHEXIDINE GLUCONATE 15 ML UDC PO SCH ×2 (09:26→20:36)
[2022-07-20] MEDS: FAMOTIDINE 20 MG/2 ML VIAL IVP SCH ×2 (09:26→20:36)
[2022-07-20] MEDS: SODIUM CHLORIDE FLUSH 0.9% 10 ML SYRINGE IVP SCH ×4 (09:27→20:36)
--- NOTE | 2022-07-20 11:08 | PROVIDER PROGRESS NOTE ---
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 RV function not well seen. No pericardial effusion. A large apical fat pad is present Summary: LVH with normal LVEF, mild diastolic dysfunction present RV dilated, cannot visualize RV function This is a limited exam, valves were not evaluated by Doppler or color Doppler.
--- NOTE | 2022-07-20 13:39 | PROVIDER PROGRESS NOTE ---
Subjective - Subjective Pt reports feeling: Improved (Her FiO2 has come down. She is also on SIMV, changed from AC yesterday, on vent setting) Objective - Vital Signs/Intake & Output Vital Signs: Vital Signs Temp Pulse Pulse Resp BP BP Pulse Ox 07/20/22 12:54 79 07/20/22 12:00 37.3 C 76 19 116/63 93 07/20/22 11:56 76 07/20/22 11:07 77 16 07/20/22 11:00 37.3 C 77 76 16 114/67 114/67 92 07/20/22 10:00 37.2 C 76 16 109/66 94 Intake & Output: Intake & Output 07/17/22 07/18/22 07/19/22 07/20/22 23:59 23:59 23:59 23:59 Intake Total 3883.167 7549.292 8942.270 1197.203 Output Total 7837 759 5783 288 Balance 2713.167 882.817 562.270 909.203 - Objective General Appearance: positive: Other (Sedated on the vent) Eyes Bilateral: positive: No lid inflammation ENT: positive: No signs of dehydration, Other (ET tube in place) Neck: positive: Nml inspection, Other (Cannot evaluate JVP due to obese neck) Respiratory: positive: No respiratory distress (Clear lung alcantar anteriorly, she is on the vent) Cardiovascular: positive: Regular rate & rhythm, Other (Distant heart sounds due to obesity and COPD) Abdomen: positive: Other (Obese with a pannus, soft) Skin: positive: Warm, Dry Extremities: positive: Non-tender, No pedal edema Neurologic/Psychiatric: positive: Other (Sedated, on the vent) - Lab Results Fish Bones: 07/20/22 08:16 07/20/22 08:16 Other Labs: Lab Results x24hrs 07/20/22 07/20/22 07/20/22 Range/Units 08:16 08:16 07:25 WBC 9.8 (4.8-10.8) x10^3/uL RBC 3.36 L (4.20-5.40) 10^6/uL Hgb 12.7 (12.0-16.0) g/dL Hct 36.0 L (37.0-47.0) % MCV 107.1 H (81.0-99.0) fL MCH 37.8 H (27.0-31.0) pg MCHC 35.3 (32.0-36.0) g/dL RDW 15.2 H (12.0-15.0) % Plt Count 205 (130-450) 10^3/uL MPV 9.4 (7.9-10.8) fL Neut # (Auto) Not Reportable Lymph # (Auto) Not Reportable Mccone # (Auto) Not Reportable Eos # (Auto) Not Reportable Baso # (Auto) Not Reportable Absolute Nucleated RBC Not Reportable Total Counted 100 Band Neuts % (Manual) 7 (0 - 10) % Reactive Lymphs % (Man) 2 % Abnorm Lymph % (Manual) 0 % Myelocytes % 3 H ( - 0) % Nucleated RBC % Not Reportable Neutrophils # (Manual) 8.4 H (1.5-6.6) 10^3/uL Lymphocytes # (Manual) 0.7 L (1.5-3.5) 10^3/uL Monocytes # (Manual) 0.1 (0.0-1.0) 10^3/uL Eosinophils # (Manual) 0.3 (0-0.7) 10^3/uL Basophils # (Manual) 0.0 (0-0.1) 10^3/uL Differential Comment MANUAL DIFFERENTIAL Manual Slide Review Indicated Bld Gas Analysis Time 0732 Sample Site RIGHT RADIAL ABG pH 7.36 (7.35-7.45) ABG pCO2 53 H (34-45) mmHg ABG pO2 66 L (80-100) mmHg ABG HCO3 29.2 H (22.0-26.0) mmol/L ABG Total CO2 30.8 H (21.0-29.0) MMOL/L ABG O2 Saturation 93 L (94-98) % ABG Base Excess 2.5 (-2.0-3.0) mmol/L Galo Test POSITIVE VBG pH (7.31-7.41) Ionized Calcium (1.15-1.33) mmol/L Respiration Rate 16 b/min O2 Delivery Device VENTILATOR Vent Mode SIMV FiO2 60.00 Tidal Volume 400 mL PEEP 8 cmH2O Pressure Support Vent 10 cmH2O Sodium 135 (135-145) mmol/L Potassium 4.2 (3.5-5.0) mmol/L Chloride 104 (101-111) mmol/L Carbon Dioxide 26 (21-32) mmol/L Anion Gap 5.0 L (6-13) BUN 21 H (6-20) mg/dL Creatinine 0.4 (0.4-1.0) mg/dL Estimated GFR (MDRD) 156 (>89) Glucose 93 (70-100) mg/dL Calcium 7.8 L (8.5-10.3) mg/dL Phosphorus (2.5-4.6) mg/dL Magnesium (1.7-2.8) mg/dL Total Bilirubin 0.6 (0.2-1.0) mg/dL Direct Bilirubin 0.2 (0.1-0.5) mg/dL AST 36 (10-42) IU/L ALT 62 H (10-60) IU/L Alkaline Phosphatase 162 H (42-121) IU/L Total Protein 4.6 L (6.7-8.2) g/dL Albumin 1.7 L (3.2-5.5) g/dL Globulin 2.9 (2.1-4.2) g/dL 07/20/22 07/20/22 07/20/22 Range/Units 04:31 04:31 00:14 WBC (4.8-10.8) x10^3/uL RBC (4.20-5.40) 10^6/uL Hgb (12.0-16.0) g/dL Hct (37.0-47.0) % MCV (81.0-99.0) fL MCH (27.0-31.0) pg MCHC (32.0-36.0) g/dL RDW (12.0-15.0) % Plt Count (130-450) 10^3/uL MPV (7.9-10.8) fL Neut # (Auto) Lymph # (Auto) Mccone # (Auto) Eos # (Auto) Baso # (Auto) Absolute Nucleated RBC Total Counted Band Neuts % (Manual) (0 - 10) % Reactive Lymphs % (Man) % Abnorm Lymph % (Manual) % Myelocytes % ( - 0) % Nucleated RBC % Neutrophils # (Manual) (1.5-6.6) 10^3/uL Lymphocytes # (Manual) (1.5-3.5) 10^3/uL Monocytes # (Manual) (0.0-1.0) 10^3/uL Eosinophils # (Manual) (0-0.7) 10^3/uL Basophils # (Manual) (0-0.1) 10^3/uL Differential Comment Manual Slide Review Bld Gas Analysis Time Sample Site ABG pH (7.35-7.45) ABG pCO2 (34-45) mmHg ABG pO2 (80-100) mmHg ABG HCO3 (22.0-26.0) mmol/L ABG Total CO2 (21.0-29.0) MMOL/L ABG O2 Saturation (94-98) % ABG Base Excess (-2.0-3.0) mmol/L Galo Test VBG pH 7.427 H (7.31-7.41) Ionized Calcium 1.14 L (1.15-1.33) mmol/L Respiration Rate b/min O2 Delivery Device Vent Mode FiO2 Tidal Volume mL PEEP cmH2O Pressure Support Vent cmH2O Sodium (135-145) mmol/L Potassium 3.9 (3.5-5.0) mmol/L Chloride (101-111) mmol/L Carbon Dioxide (21-32) mmol/L Anion Gap (6-13) BUN (6-20) mg/dL Creatinine (0.4-1.0) mg/dL Estimated GFR (MDRD) (>89) Glucose (70-100) mg/dL Calcium (8.5-10.3) mg/dL Phosphorus 2.5 (2.5-4.6) mg/dL Magnesium 2.3 2.6 (1.7-2.8) mg/dL Total Bilirubin (0.2-1.0) mg/dL Direct Bilirubin (0.1-0.5) mg/dL AST (10-42) IU/L ALT (10-60) IU/L Alkaline Phosphatase (42-121) IU/L Total Protein (6.7-8.2) g/dL Albumin (3.2-5.5) g/dL Globulin (2.1-4.2) g/dL Assessment/Plan - Problem List (1) Alcohol withdrawal delirium Impression: The night of 07/16, the patient reported visual hallucinations of lions and tigers in her room. Initially we believed this was a result of hyponatremia or from iatrogenic hyperthyroidism (excessive Synthroid, based on very low TSH result). Throughout the night of 07/17 until morning of 07/18, the patient believed she was on a ship going to [place] and was very anxious. She even sent multiple lengthy texts to her son about how she was on a boat. Furthermore, she also assigned nicknames to all the nursing staff, such as 'cinda jennifer', 'the head master', and 'tiny flower'. I had a suspicion that she was going through alcohol withdrawal, based on having a high MCV, and that it is 48 houyrs since admission, I ordered a CIWA score which was 14. Initially, the patient did not report alcohol use. However, after speaking with her son Ha at bedside 07/18, he reported that she has been mixing cheap boxed wine and more expensive bottled wine in an old orange juice gallon container. She then mixes this concoction with toy sophie. She drinks this from noon until she goes to sleep at about 2200. Ha estimates that she drinks 1.5L of wine daily. The patient herself has not admitted to her alcohol habits and was even e mbarrassed to admit her 50+ years smoking habits on this admission. The patient continued to be confused and agitated. She was not speaking coherently and was not oriented to place or time. I ordered IV Ativan 2 mg x1 and a STAT head CT to rule out CVA. Head CT found: No acute intracranial abnormality Patient was transferred to the ICU after returning from CT. CIWA protocal ordered, with iv Ativan drip. On the Ativan drip, she was less combative but became more hypopneic and a blood gas was ordered (see #2 #3) Thiamine supplementation started. Plan: Remain in the ICU, on the vent, on IV Ativan for sedation while on the vent, and to treat her alcohol withdrawal. Also continue iv Fentanyl drip. Will give her several CPAP trials, 1 hour each, coming down on both the Ativan and fentanyl drips today. No extubation is planned today. (2) Acute respiratory failure with hypoxia Assessment/Plan: On 07/15, EMS arrived to find patient with a pulse ox of 78% on room air, which subsequently improved with 4L/min nasal cannula oxygen to 89-91%. During her ER stay, she required between 4-6L of supplemental oxygen. She does have COPD, but does not use supplemental oxygen at home. Her O2 supplement has been relatively stable as we are treating her COPD and pneumonia On07/18, the patient went into alcohol withdrawal. Her O2 sat was 88% on 4L nasal cannula. She was then placed on an oxygen mask with 12L/min oxygen. This brought her O2 sat up to 94%. After starting iv Ativan, the patient developed respiratory distress, became tachypneic (rate of 32), tachycardic (102), and was placed on a non-rebreather mask. Then an ABG was ordered and showed severe respiratory acidosis. She was intubated (see #3) and I called the son on 07/18 and updated him. Chest x-ray was done today that shows continued infiltrate plus CHF Given the new CHF seen on CXRs, an Echo has been ordered however we have no technician terminal and repeater here until 07/23 (today is 07/20). Therefore I performed a limited bedside Echo today (see separate note). This showed normal LVEF, and mild diastolic dysfunction present. RV is dilated, but I could not measure her PA pressure. Plan: Remain in ICU, on vent Will give her several CPAP trials, 1 hour each, coming down on both the Ativan and fentanyl drips today. No extubation is planned today. (3) On mechanically assisted ventilation Patient needed IV Ativan drip to manage severe alcohol withdrawal delirium which made her hypoxic and hypercapnic. ABG showed pH 7.24, PCO2 67 Intubation was requested, and the ED provider came to the ICU and she was intubated after receiving sedatives that he ordered, on 07/18. Plan: Remain in ICU, on the vent. Remain on IV Ativan as her sedative, which will help treat her alcohol withdrawal and provide sedation while on the vent. Also continue iv Fentanyl drip. Will give her several CPAP trials, 1 hour each, coming down on both the Ativan and fentanyl drips today. No extubation is planned today. I am hoping she will probably be extubated tomorrow, therefore we have not sta rted NG tube feeds Continue IV Pepcid BID for stress ulcer prophylaxis (4) Pneumonia Conclusion/Plan: Patient has right upper lobe pneumonia with mild left upper pneumonia. She took one dose of PO azithromycin 500 mg at home on 07/15. On 07/16, she was given azith romycin IV and started on ceftriaxone IV. CXR from 07/16: Right upper lobe consolidation compatible with lobar pneumonia CT chest w/ IV contrast from 07/16: Right upper lobe consolidation consistent w ith pneumonia. Mild pneumonia is also seen in the left upper lobe. Bilateral pleural effusions (small on the right and trace on the left). Mediastinal and hilar lymphadenopathy, most likely reactive in the setting of pneumonia. A 5 mm nodule found along the LEFT major fissure. Mild cardiomegaly with severe coronary atherosclerosis. Her blood cultures are negative to date. We have not been able to obtain a sputum sample to send for culture, even on the vent. Plan: Continue oxygen supplementation, now on a vent Continue IV azithromycin and ceftriaxone Continue nebulizers Qualifiers: Pneumonia type: due to unspecified organism Laterality: bilateral Lung location: upper lobe of lung Qualified Code(s): J18.9 - Pneumonia, unspecified organism (5) COPD with exacerbation Conclusion/Plan: Patient has a history of COPD likely due to her extensive smoking history (56 years) and being a "chain smoker". At baseline, she does not require supplem ental oxygen; however, she has needed at least 4L/min of oxygen to keep her O2 sat in the low 90%. Initially, nebulized bronchodilator treatments resulted in significant improvement in her ability to breathe, but is still very short of breath when walking. Today 07/18, her breathing worsened due to IV Ativan that was needed for treating her acute alcohol withdrawal. She was then placed on an oxygen mask with 12L/min oxygen. She then needed to be intubated today Plan: Continue bronchodilator nebulizer treatments Continue supplemental oxygen, now on the vent (6) Hyponatremia Conclusion/Plan: This was likely hypovolemic hyponatremia due to not eating much in the last few weeks and also alcohol abuse. Patient reports she has not been hungry because of grief after her . On admission, she was hyponatremic and her sodium level was 123. On 07/17, it has improved to 128. When I went to visit with the patient on 07/17, she did not remember that we had a lengthy conversation yesterday about her late . Initially, I thought this was due to her low sodium levels yesterday. Today 07/18, her BNP came back high at 229. Her sodium increased to 132. A CXR was done that showed volume overload Plan: Stop IVF No more restriction of free water needed (7) Incidental lung nodule, > 3mm and < 8mm Conclusion/Plan: Though chest CT was initially ordered by the ER to rule out rib fractures from her fall, several lung findings were noted. These are especially concerning given the patient's extensive smoking history (56 years) Chest CT w/contrast from 07/16 found a 5 mm nodule along the LEFT major fissure. I n addition, there was also mediastinal and hilar adenopathy, a 1.8 cm right paratracheal lymph node, a 1.3 cm clustered AP window lymph node, a 1.3 cm right hilar lymph node, and a 1 cm left hilar lymph node NOTE- Initial radiology report described a 5 mm right-sided nodule, however, it has subsequently been corrected to LEFT-sided nodule. I discussed these findings with the patient, and she expressed understanding. The next morning on 07/17, the nurse reported that the patient was very anxious and worrying about what will happen to her disabled son when she passes away. Plan: Follow up CT recommended in 6-12 months. Then, again at 18-24 months if no change. Cont to treat pneumonia with IV antibiotics which could help with the adenopathy (8) Iatrogenic hyperthyroidism Assessment/Plan: Patient has a history of hypothyroidism for which she takes levothyroxine 125 mcg at home. She has not been on this medication during her stay here. On 07/17, we discovered that her TSH was <0.08. I believe the patient is over treating herself with her levothyroxine, especially now that she is down 30 pounds. Her current hyperthyroidism could be contributing to many of her symptoms including anxiety, brief episode of PSVT, dyspnea, weight loss, and confusion. Plan: Decrease Levothyroxine dose to 112 mcg (9) Tobacco abuse disorder Conclusion/Plan: She has been smoking since she was 21 years old and has never been able to quit despite multiple attempts, including hypnotherapy. She has decreased from 3 packs daily to ~8 cigarettes daily over time. She was very embarrassed to speak about her smoking habits in front of her family and even became tearful when speaking about it. On 07/17, she described herself as being a "chain smoker". She also admitted to us that she has been smoking more since her to help manage her grief. Plan: Nicotine patch daily (10) PSVT (paroxysmal supraventricular tachycardia) Conclusion/Plan: RESOLVED On 07/16 at approximately 13:45, patient had a brief run of PSVT. I suspect this was caused by her current lung disease, however I will also check for hyperthyroidism. On 07/17, her TSH was <0.08, indicating overtreatment with her levothyroxine. Plan: Monitor for any changes Continue telemetry
[2022-07-20] MEDS ORDERED: FUROSEMIDE 20 MG/2 ML VIAL IVP STA (18:21)
[2022-07-20] MEDS ORDERED: DEXTROSE 5%-0.9% NACL 1,000 ML IV SCH (18:24)
[2022-07-20] MEDS: SODIUM CHLORIDE FLUSH 0.9% 10 ML SYRINGE IVP PRN (18:54)
[2022-07-20 21:26] LABS: ABG PH 7.36 (7.35-7.45)
[2022-07-20 21:27] LABS: ABG BASE EXCESS 1.5 mmol/L (-2.0-3.0); ABG OXYGEN SATURATION 94 % (94-98); ABG PCO2 51 mmHg (34-45); ABG PO2 68 mmHg (80-100); ABG TCO2 29.5 MMOL/L (21.0-29.0); ALLEN TEST POSITIVE
[2022-07-21] MEDS: LORazepam 100MG/100ML D5W 100 ML IV SCH (04:29)
[2022-07-21 04:40] LABS: CALCIUM, IONIZED 1.12 mmol/L (1.15-1.33); VBG PH 7.408 (7.31-7.41)
[2022-07-21 04:41] LABS: BASOPHILS % (AUTO) 0.7 %; HCT - HEMATOCRIT 37.7 % (37.0-47.0); HGB - HEMOGLOBIN 12.7 g/dL (12.0-16.0); MEAN CORPUSCULAR HEMOGLOBIN 37.1 pg (27.0-31.0); MEAN CORPUSCULAR HGB CONC 33.7 g/dL (32.0-36.0); MEAN CORPUSCULAR VOLUME 110.2 fL (81.0-99.0); MEAN PLATELET VOLUME 9.4 fL (7.9-10.8); MONOCYTES % (AUTO) 4.1 %; NEUTROPHILS % (AUTO) 76.1 %; PLT - PLATELET COUNT 213 10^3/uL (130-450); RED BLOOD COUNT 3.42 10^6/uL (4.20-5.40); RED CELL DISTRIBUTION WIDTH 15.6 % (12.0-15.0); WHITE BLOOD COUNT 11.1 x10^3/uL (4.8-10.8)
[2022-07-21 04:48] LABS: ABNORMAL LYMPHS % (MANUAL) 0 %
[2022-07-21 04:52] LABS: CREATININE 0.5 mg/dL (0.4-1.0); MAGNESIUM 2.2 mg/dL (1.7-2.8); PHOSPHORUS 3.4 mg/dL (2.5-4.6); POTASSIUM 4.4 mmol/L (3.5-5.0)
[2022-07-21 04:59] LABS: BAND NEUTROPHILS % (MANUAL) 7 %; DIFFERENTIAL COMMENT MANUAL DIFFERENTIAL; EOSINOPHILS # (MANUAL) 0.3 10^3/uL (0-0.7); LYMPHOCYTES % (MANUAL) 9 %; METAMYELOCYTES % (MANUAL) 2 %; MONOCYTES # (MANUAL) 0.7 10^3/uL (0.0-1.0); MYELOCYTES % (MANUAL) 1 %; NEUTROPHILS # (MANUAL) 8.8 10^3/uL (1.5-6.6); PLATELET ESTIMATE, MANUAL NORMAL (130-450,000) (NORMAL); RBC MORPHOLOGY (MULTIPLE) NORMAL APPEARANCE (NORMAL)
[2022-07-21] MEDS: ALBUTEROL NEB 2.5 MG/3 ML INH SCH ×4 (05:43→21:28)
[2022-07-21] MEDS: fentaNYL 2,500 MCG in SODIUM CHLORIDE 0.9% 200 ML IV SCH (05:43)
[2022-07-21] MEDS: SODIUM CHLORIDE FLUSH 0.9% 10 ML SYRINGE IVP PRN ×2 (05:44→20:26)
[2022-07-21] MEDS: FUROSEMIDE 20 MG/2 ML VIAL IVP SCH ×2 (05:44→13:19)
[2022-07-21] MEDS: SODIUM CHLORIDE 0.9% 500 ML IV PRN (05:50)
[2022-07-21] MEDS: CHLORHEXIDINE GLUCONATE 15 ML UDC PO SCH ×2 (09:01→20:37)
[2022-07-21] MEDS: THIAMINE INJ 100 MG in SODIUM CHLORIDE 0.9% 50 ML IV SCH (09:01)
[2022-07-21] MEDS: NICOTINE 7 MG PATCH TOP SCH (09:02)
[2022-07-21] MEDS: FAMOTIDINE 20 MG/2 ML VIAL IVP SCH ×2 (09:02→20:37)
[2022-07-21] MEDS: ENOXAPARIN 40 MG/0.4 ML SYRINGE SUBQ SCH (09:02)
[2022-07-21] MEDS: cefTRIAXone 2 GM in SODIUM CHLORIDE 0.9% MINIBAG 100 ML IV SCH (09:02)
[2022-07-21] MEDS: SODIUM CHLORIDE FLUSH 0.9% 10 ML SYRINGE IVP SCH ×2 (09:03→16:43)
--- NOTE | 2022-07-21 12:31 | PROVIDER PROGRESS NOTE ---
Subjective - Subjective Pt reports feeling: No change (Patient had 3 CPAP trials of 1 hour each yesterday. Today her CPAP trial was started and she was apneic, could not continue, she was put back on the vent at full settings on SIMV, 8 of PEEP) Objective - Vital Signs/Intake & Output Reviewed Vital Signs: Yes Vital Signs: Vital Signs Temp Pulse Pulse Resp BP Pulse Ox 07/21/22 12:00 37.5 C 71 21 107/58 L 93 07/21/22 11:30 71 16 07/21/22 11:08 71 16 07/21/22 11:00 37.5 C 72 18 117/61 94 07/21/22 10:30 37.5 C 16 93 07/21/22 10:00 37.5 C 72 16 107/58 L 93 07/21/22 09:42 72 07/21/22 09:30 72 07/21/22 09:00 37.6 C 71 16 103/60 93 Intake & Output: Intake & Output 07/18/22 07/19/22 07/20/22 07/21/22 23:59 23:59 23:59 23:59 Intake Total 2938.374 0916.270 2121.591 449.803 Output Total 475 1620 1198 895 Balance 882.817 562.270 923.591 -445.197 - Objective General Appearance: positive: Other (Sedated on the vent) Eyes Bilateral: positive: No lid inflammation ENT: positive: No signs of dehydration, Other (ET tube in place) Neck: positive: Other (Cannot evaluate JVP due to morbid obesity and patient on the vent) Respiratory: positive: No respiratory distress (On the vent), Breath sounds nml Cardiovascular: positive: Regular rate & rhythm, Other (Distant heart sounds due to morbid obesity and COPD) Abdomen: positive: Other (Obese, soft, has a pannus) Skin: positive: Warm, Dry Extremities: positive: Other (2+ edema over hands and leg) Neurologic/Psychiatric: positive: Other (Sedated on the vent) - Lab Results Fish Bones: 07/21/22 04:25 07/21/22 04:25 Other Labs: Lab Results x24hrs 07/21/22 07/21/22 07/21/22 Range/Units 04:25 04:25 04:25 WBC 11.1 H (4.8-10.8) x10^3/uL RBC 3.42 L (4.20-5.40) 10^6/uL Hgb 12.7 (12.0-16.0) g/dL Hct 37.7 (37.0-47.0) % MCV 110.2 H (81.0-99.0) fL MCH 37.1 H (27.0-31.0) pg MCHC 33.7 (32.0-36.0) g/dL RDW 15.6 H (12.0-15.0) % Plt Count 213 (130-450) 10^3/uL MPV 9.4 (7.9-10.8) fL Neut # (Auto) Not Reportable Lymph # (Auto) Not Reportable Horry # (Auto) Not Reportable Eos # (Auto) Not Reportable Baso # (Auto) Not Reportable Absolute Nucleated RBC Not Reportable Total Counted 100 Band Neuts % (Manual) 7 (0 - 10) % Abnorm Lymph % (Manual) 0 % Metamyelocytes % 2 H ( - 0) % Myelocytes % 1 H ( - 0) % Nucleated RBC % Not Reportable Neutrophils # (Manual) 8.8 H (1.5-6.6) 10^3/uL Lymphocytes # (Manual) 1.0 L (1.5-3.5) 10^3/uL Monocytes # (Manual) 0.7 (0.0-1.0) 10^3/uL Eosinophils # (Manual) 0.3 (0-0.7) 10^3/uL Basophils # (Manual) 0.0 (0-0.1) 10^3/uL Differential Comment MANUAL DIFFERENTIAL Platelet Estimate NORMAL (130-450,000) (NORMAL) RBC Morph Micro Appear NORMAL APPEARANCE (NORMAL) Bld Gas Analysis Time Sample Site ABG pH (7.35-7.45) ABG pCO2 (34-45) mmHg ABG pO2 (80-100) mmHg ABG HCO3 (22.0-26.0) mmol/L ABG Total CO2 (21.0-29.0) MMOL/L ABG O2 Saturation (94-98) % ABG Base Excess (-2.0-3.0) mmol/L Galo Test VBG pH 7.408 (7.31-7.41) Ionized Calcium 1.12 L (1.15-1.33) mmol/L O2 Delivery Device FiO2 PEEP cmH2O Pressure Support Vent cmH2O Sodium 138 (135-145) mmol/L Potassium 4.4 (3.5-5.0) mmol/L Chloride 104 (101-111) mmol/L Carbon Dioxide 27 (21-32) mmol/L Anion Gap 7.0 (6-13) BUN 24 H (6-20) mg/dL Creatinine 0.5 (0.4-1.0) mg/dL Estimated GFR (MDRD) 120 (>89) Glucose 85 (70-100) mg/dL Calcium 8.0 L (8.5-10.3) mg/dL Phosphorus 3.4 (2.5-4.6) mg/dL Magnesium 2.2 (1.7-2.8) mg/dL 07/20/22 Range/Units 21:19 WBC (4.8-10.8) x10^3/uL RBC (4.20-5.40) 10^6/uL Hgb (12.0-16.0) g/dL Hct (37.0-47.0) % MCV (81.0-99.0) fL MCH (27.0-31.0) pg MCHC (32.0-36.0) g/dL RDW (12.0-15.0) % Plt Count (130-450) 10^3/uL MPV (7.9-10.8) fL Neut # (Auto) Lymph # (Auto) Horry # (Auto) Eos # (Auto) Baso # (Auto) Absolute Nucleated RBC Total Counted Band Neuts % (Manual) (0 - 10) % Abnorm Lymph % (Manual) % Metamyelocytes % ( - 0) % Myelocytes % ( - 0) % Nucleated RBC % Neutrophils # (Manual) (1.5-6.6) 10^3/uL Lymphocytes # (Manual) (1.5-3.5) 10^3/uL Monocytes # (Manual) (0.0-1.0) 10^3/uL Eosinophils # (Manual) (0-0.7) 10^3/uL Basophils # (Manual) (0-0.1) 10^3/uL Differential Comment Platelet Estimate (NORMAL) RBC Morph Micro Appear (NORMAL) Bld Gas Analysis Time 2124 Sample Site RIGHT RADIAL ABG pH 7.36 (7.35-7.45) ABG pCO2 51 H (34-45) mmHg ABG pO2 68 L (80-100) mmHg ABG HCO3 28.0 H (22.0-26.0) mmol/L ABG Total CO2 29.5 H (21.0-29.0) MMOL/L ABG O2 Saturation 94 (94-98) % ABG Base Excess 1.5 (-2.0-3.0) mmol/L Galo Test POSITIVE VBG pH (7.31-7.41) Ionized Calcium (1.15-1.33) mmol/L O2 Delivery Device C-PAP FiO2 60.00 PEEP 8 cmH2O Pressure Support Vent 10 cmH2O Sodium (135-145) mmol/L Potassium (3.5-5.0) mmol/L Chloride (101-111) mmol/L Carbon Dioxide (21-32) mmol/L Anion Gap (6-13) BUN (6-20) mg/dL Creatinine (0.4-1.0) mg/dL Estimated GFR (MDRD) (>89) Glucose (70-100) mg/dL Calcium (8.5-10.3) mg/dL Phosphorus (2.5-4.6) mg/dL Magnesium (1.7-2.8) mg/dL Assessment/Plan - Problem List (1) Acute respiratory failure with hypoxia Impression: On 07/15, EMS arrived to find patient with a pulse ox of 78% on room air, which subsequently improved with 4L/min nasal cannula oxygen to 89-91%. Her O2 supplement was relatively stable as we started treating her COPD and pneumonia On 07/18, the patient went into alcohol withdrawal with agitation and delerium. Her O2 sat was 88% on 4L nasal cannula. She was then placed on an oxygen mask with 12L/min oxygen.After starting iv Ativan for treatimng alcohol withdrawal, the patient developed respiratory distress, became tachypneic (rate of 32), tachycardic (102), and was placed on a non-rebreather mask. Then an ABG showed severe respiratory acidosis. She was intubated. Chest x-ray was repeated, showed ET tube in the right place, persistent bilateral infiltrates and CHF persist Given the new CHF seen on CXRs, an Echo was ordered however we have no refractory technician here until 07/23. Therefore on 07/20, I performed a limited bedside Echo (see separate note). The Echo showed normal LVEF, and mild diastolic dysfunction present. RV is dilated, but I could not measure her PA pressure. Yesterday 07/20 we started CPAP trials, 1 hour each shift, and her iv sedatives were turned off 30 minutes before CPAP. Today 07/21 a CPAP trial was started and she was apneic, could not continue, she was put back on the vent at full settings. Plan: Remain in ICU, on vent Will re-attempt CPAP trial later today with sedatives off 30-45 min before, CPAP for 2 hours if she can tolerate it. Her son Alan arrived from [place]. Her son Ha (and Ha's daughter) are also in the room. I brought them all up to date about all her diagnoses. I answered all their questions to their satisfaction. We reviewed her advanced directive together: There is a sentence in there that says it is null and void after 7 years, and she signed it in March 2015 therefore the Directive is no longer valid. There is no description about whether she wants to have CPR or defibrillation which I asked both sons to think about, and decide if they want to make her a DNR. (2) On mechanically assisted ventilation Patient needed IV Ativan drip started several days ago, to manage severe alcohol withdrawal delirium, which made her hypoxic and hypercapnic. ABG showed pH 7.24, PCO2 67. Intubation was requested, and the ED provider came to the ICU and she was intubated after receiving sedatives that he ordered, on 07/18. Plan: Remain in ICU, on the vent. Remain on IV Ativan as her sedative, which will help treat her alcohol withdrawal and provide sedation while on the vent. Also continue iv Fentanyl drip. Will re-attempt CPAP trial later today with sedatives off 30-45 min prior to CPAP. CPAP for 2 hours if she can tolerate it. Will start NG tube feeds today I am hoping she can probably be extubated tomorrow Continue IV Pepcid BID for stress ulcer prophylaxis (3) Pneumonia Conclusion/Plan: Patient has right upper lobe pneumonia with mild left upper pneumonia. She took one dose of PO azithromycin 500 mg at home on 07/15. On 07/16, she was given azithromycin IV and started on ceftriaxone IV. CT chest w/ IV contrast from 07/16: Right upper lobe consolidation consistent with pneumonia. Mild pneumonia is also seen in the left upper lobe. Bilateral pleural effusions (small on the right and trace on the left). Mediastinal and hilar lymphadenopathy, most likely reactive in the setting of pneumonia. A 5 mm nodule found along the LEFT major fissure. Mild cardiomegaly with severe coronary atherosclerosis. Her blood cultures are negative to date. We have not been able to obtain a sputum sample to send for culture, even on the vent. Plan: Continue oxygen supplementation, now on a vent Continue IV azithromycin and ceftriaxone Continue nebulizers Qualifiers: Pneumonia type: due to unspecified organism Laterality: bilateral Lung location: upper lobe of lung Qualified Code(s): J18.9 - Pneumonia, unspecified organism (4) COPD with exacerbation Conclusion/Plan: Patient has a history of COPD likely due to her extensive smoking history (56 years) and being a "chain smoker". At baseline, she does not require supp lemental oxygen; however, she has needed at least 4L/min of oxygen to keep her O2 sat in the low 90%. Initially, nebulized bronchodilator treatments resulted in significant improvement in her ability to breathe, but is still very short of breath when walking. Today 07/18, her breathing worsened due to IV Ativan that was needed for treating her acute alcohol withdrawal. She was then placed on an oxygen mask with 12L/min oxygen. She then needed to be intubated today Plan: Continue bronchodilator nebulizer treatments Continue supplemental oxygen, now on the vent (5) Alcohol withdrawal delirium Impression: The night of 07/16, the patient reported visual hallucinations of lions and tigers in her room. Initially we believed this was a result of hyponatremia or from iatrogenic hyperthyroidism (excessive Synthroid, based on very low TSH result). Throughout the night of 07/17 until morning of 07/18, the patient believed she was on a ship going to [place] and was very anxious. She even sent multiple lengthy texts to her son about how she was on a boat. Furthermore, she also assigned nicknames to all the nursing staff, such as 'tiny fairy', 'the head master', and 'tiny flower'. I had a suspicion that she was going through alcohol withdrawal, based on having a high MCV, and that it is 48 houyrs since admission, I ordered a CIWA score which was 14. Initially, the patient did not report alcohol use. However, after speaking with her son Ha at bedside 07/18, he reported that she has been mixing cheap boxed wine and more expensive bottled wine in an old orange juice gallon container. She then mixes this concoction with toy sophie. She drinks this from noon until she goes to sleep at about 2200. Ha estimates that she drinks 1.5L of wine daily. The patient herself has not admitted to her alcohol habits and was even embarrassed to admit her 50+ years smoking habits on this admission. The patient continued to be confused and agitated. She was not speaking coherently and was not oriented to place or time. I ordered IV Ativan 2 mg x1 and a STAT head CT to rule out CVA. Head CT found: No acute intracranial abnormality Patient was transferred to the ICU after returning from CT. CIWA protocal ordered, with iv Ativan drip. On the Ativan drip, she was less combative but became more hypopneic and a blood gas was ordered (see #2 #3) Thiamine supplementation started. Plan: Remain in the ICU, on the vent, on IV Ativan for sedation while on the vent, and to treat her alcohol withdrawal. Also continue iv Fentanyl drip. (6) Cor Pulmonale A very dilated RV was seen on the Echo, which was done today at bedside. This is very likely from her longstanding smoking, COPD. Plan: Continue with present meds and management. When she is extubated, I will discuss managing her COPD better, quitting smoking and that she is a candidate to attend pulmonary rehab once she stabilizes (7) Hyponatremia Conclusion/Plan: This was likely hypovolemic hyponatremia due to not eating much in the last few weeks and also alcohol abuse. Patient reports she has not been hungry because of grief after her . On admission, she was hyponatremic and her sodium level was 123. On 07/17, it has improved to 128. When I went to visit with the patient on 07/17, she did not remember that we had a lengthy conversation yesterday about her late . Initially, I thought this was due to her low sodium levels yesterday. Today 5/4, her BNP came back high at 229. Her sodium increased to 132. A CXR was done that showed volume overload We stopped IV saline, and started Lasix No more restriction of free water needed Plan: We will start NG tube feeds today. Follow BMP and Mg daily. Continue with ICU electrolyte protocol. (8) Incidental lung nodule, > 3mm and < 8mm Conclusion/Plan: Though chest CT was initially ordered by the ER to rule out rib fractures from her fall, several lung findings were noted. These are especially concerning given the patient's extensive smoking history (56 years) Chest CT w/contrast from 07/16 found a 5 mm nodule along the LEFT major fissure. In addition, there was also mediastinal and hilar adenopathy, a 1.8 cm right paratracheal lymph node, a 1.3 cm clustered AP window lymph node, a 1.3 cm right hilar lymph node, and a 1 cm left hilar lymph node NOTE- Initial radiology report described a 5 mm right-sided nodule, however, it has subsequently been corrected to LEFT-sided nodule. I discussed these findings with the patient, and she expressed understanding. The next morning on 07/17, the nurse reported that the patient was very anxious and worrying about what will happen to her disabled son when she passes away. Plan: Follow up CT recommended in 6-12 months. Then, again at 18-24 months if no change. Cont to treat pneumonia with IV antibiotics which could help with the adenopathy (9) Iatrogenic hyperthyroidism Assessment/Plan: Patient has a history of hypothyroidism for which she takes levothyroxine 125 mcg at home. She has not been on this medication during her stay here. On 07/17, we discovered that her TSH was <0.08. I believe the patient is over treating herself with her levothyroxine, especially now that she is down 30 pounds. Her current hyperthyroidism could be contributing to many of her symptoms including anxiety, brief episode of PSVT, dyspnea, weight loss, and confusion. We decreased Levothyroxine dose to 112 mcg (10) Tobacco abuse disorder Conclusion/Plan: She has been smoking since she was 21 years old and has never been able to quit despite multiple attempts, including hypnotherapy. She has decreased from 3 packs daily to ~8 cigarettes daily over time. She was very embarrassed to speak about her smoking habits in front of her family and even became tearful when speaking about it. On 07/17, she described herself as being a "chain smoker". She also admitted to us that she has been smoking more since her to help manage her grief. Plan: Nicotine patch daily. I have weaned down the 14 mg patch down to 7 mg, two days ago (11) PSVT (paroxysmal supraventricular tachycardia) Conclusion/Plan: RESOLVED On 07/16 at approximately 13:45, patient had a brief run of PSVT. I suspect this was caused by her current lung disease, however I will also check for hyperthyroidism. On 07/17, her TSH was <0.08, indicating overtreatment with her Levothyroxine. Plan: Monitor on telemetry
[2022-07-21] MEDS: polyethylene glycoL 3350 17 GM PACKET PO SCH (13:18)
[2022-07-21] MEDS: ACETAMINOPHEN 1,000 MG/100 ML 1,000 MG/100 ML BAG IV PRN (20:22)
[2022-07-22] MEDS: SODIUM CHLORIDE FLUSH 0.9% 10 ML SYRINGE IVP SCH ×4 (04:49→20:42)
[2022-07-22 05:28] LABS: CALCIUM, IONIZED 1.14 mmol/L (1.15-1.33); VBG PH 7.409 (7.31-7.41)
[2022-07-22 05:38] LABS: MAGNESIUM 2.2 mg/dL (1.7-2.8); PHOSPHORUS 3.3 mg/dL (2.5-4.6); POTASSIUM 3.9 mmol/L (3.5-5.0)
[2022-07-22] MEDS ORDERED: POTASSIUM CHLORIDE 20 MEQ/15 ML UDC PO ONE (05:47)
[2022-07-22] MEDS: ALBUTEROL NEB 2.5 MG/3 ML INH SCH ×4 (06:10→19:00)
[2022-07-22] MEDS: FUROSEMIDE 20 MG/2 ML VIAL IVP SCH ×2 (06:12→13:50)
[2022-07-22] MEDS: SODIUM CHLORIDE FLUSH 0.9% 10 ML SYRINGE IVP PRN (06:13)
[2022-07-22] MEDS: fentaNYL 2,500 MCG in SODIUM CHLORIDE 0.9% 200 ML IV SCH (06:38)
[2022-07-22] MEDS: LORazepam 100MG/100ML D5W 100 ML IV SCH (06:39)
[2022-07-22] MEDS ORDERED: ALBUMIN 25% 12.5 GM/50 ML VIAL IV STA (08:16)
[2022-07-22] MEDS: cefTRIAXone 2 GM in SODIUM CHLORIDE 0.9% MINIBAG 100 ML IV SCH (08:41)
[2022-07-22] MEDS: FAMOTIDINE 20 MG/2 ML VIAL IVP SCH ×2 (08:44→20:42)
[2022-07-22] MEDS: ENOXAPARIN 40 MG/0.4 ML SYRINGE SUBQ SCH (08:48)
[2022-07-22] MEDS: NICOTINE 7 MG PATCH TOP SCH (08:50)
[2022-07-22] MEDS: polyethylene glycoL 3350 17 GM PACKET PO SCH (09:00)
[2022-07-22] MEDS: THIAMINE INJ 100 MG in SODIUM CHLORIDE 0.9% 50 ML IV SCH (09:55)
[2022-07-22] MEDS: CHLORHEXIDINE GLUCONATE 15 ML UDC PO SCH ×2 (09:56→20:42)
[2022-07-22 10:17] LABS: BASOPHILS % (AUTO) 0.5 %; EOSINOPHILS % (AUTO) 3.6 %; HCT - HEMATOCRIT 37.4 % (37.0-47.0); HGB - HEMOGLOBIN 12.7 g/dL (12.0-16.0); LYMPHOCYTES % (AUTO) 6.5 %; MEAN CORPUSCULAR HEMOGLOBIN 37.1 pg (27.0-31.0); MEAN CORPUSCULAR VOLUME 109.4 fL (81.0-99.0); MEAN PLATELET VOLUME 9.6 fL (7.9-10.8); MONOCYTES % (AUTO) 5.1 %; PLT - PLATELET COUNT 258 10^3/uL (130-450); RED BLOOD COUNT 3.42 10^6/uL (4.20-5.40); RED CELL DISTRIBUTION WIDTH 15.4 % (12.0-15.0); WHITE BLOOD COUNT 12.6 x10^3/uL (4.8-10.8)
[2022-07-22 10:28] LABS: SLIDE REVIEW? Indicated
[2022-07-22 10:35] LABS: CALCIUM 8.1 mg/dL (8.5-10.3); CREATININE 0.6 mg/dL (0.4-1.0); POTASSIUM 4.3 mmol/L (3.5-5.0)
[2022-07-22 10:42] LABS: ABNORMAL LYMPHS % (MANUAL) 0 %
[2022-07-22 10:43] LABS: ABG PCO2 44 mmHg (34-45); ABG PH 7.41 (7.35-7.45); ABG PO2 66 mmHg (80-100); ABG TCO2 28.4 MMOL/L (21.0-29.0)
[2022-07-22 10:44] LABS: ABG MODE OF VENTILATION CPAP; ABG OXYGEN SATURATION 94 % (94-98); ALLEN TEST POSITIVE
[2022-07-22 10:55] LABS: BAND NEUTROPHILS % (MANUAL) 3 %; EOSINOPHILS # (MANUAL) 0.4 10^3/uL (0-0.7); LYMPHOCYTES # (MANUAL) 0.6 10^3/uL (1.5-3.5); LYMPHOCYTES % (MANUAL) 2 %; MONOCYTES # (MANUAL) 0.3 10^3/uL (0.0-1.0); MYELOCYTES % (MANUAL) 3 %; REACTIVE LYMPHS % (MANUAL) 3 %
[2022-07-22 10:56] LABS: DIFFERENTIAL COMMENT MANUAL DIFFERENTIAL
[2022-07-22] MEDS: FOLIC ACID 1 MG TABLET PO SCH (13:45)
--- NOTE | 2022-07-22 17:04 | PROVIDER PROGRESS NOTE ---
Subjective - Subjective Pt reports feeling: No change (Yesterday, she tolerated 3 sessions of 1-hr CPAP. Today, she did a 2.5 hour CPAP in a.m., but failed a 2nd CPAP trial in afternoon, after just 10 min (her RR cliff very high and TV dropped).) Objective - Vital Signs/Intake & Output Vital Signs: Vital Signs Temp Pulse Pulse Resp BP Pulse Ox 07/22/22 16:46 94 07/22/22 16:35 90 07/22/22 15:53 37.4 C 65 16 129/66 97 07/22/22 15:52 65 16 07/22/22 15:40 63 07/22/22 15:02 37.2 C 66 16 129/66 94 07/22/22 14:00 37.1 C 76 22 138/65 H 93 Intake & Output: Intake & Output 07/19/22 07/20/22 07/21/22 07/22/22 23:59 23:59 23:59 23:59 Intake Total 2182.270 2121.591 0266.159 1641.769 Output Total 1620 1198 1972 2112 Balance 562.270 923.591 -938.341 0465.769 - Objective General Appearance: positive: No acute distress (Sedated on the vent) Eyes Bilateral: positive: No lid inflammation ENT: positive: No signs of dehydration, Other (ET tube and ng tube in place) Neck: positive: Other (Cannot evaal JVP due to obese neck and is on the vent) Respiratory: positive: No respiratory distress (on the vent), Breath sounds nml (anteriorly) Cardiovascular: positive: Regular rate & rhythm, No murmur Abdomen: positive: Other (Obese with a pannus, soft) Skin: positive: Warm, Dry Extremities: positive: Other (3+ edema of legs and hands) Neurologic/Psychiatric: positive: Other (Sedated on the vent) - Lab Results Fish Bones: 07/22/22 10:08 07/22/22 10:08 Other Labs: Lab Results x24hrs 07/22/22 07/22/22 07/22/22 Range/Units 10:35 10:08 10:08 WBC 12.6 H (4.8-10.8) x10^3/uL RBC 3.42 L (4.20-5.40) 10^6/uL Hgb 12.7 (12.0-16.0) g/dL Hct 37.4 (37.0-47.0) % MCV 109.4 H (81.0-99.0) fL MCH 37.1 H (27.0-31.0) pg MCHC 34.0 (32.0-36.0) g/dL RDW 15.4 H (12.0-15.0) % Plt Count 258 (130-450) 10^3/uL MPV 9.6 (7.9-10.8) fL Neut # (Auto) Not Reportable Lymph # (Auto) Not Reportable [place] # (Auto) Not Reportable Eos # (Auto) Not Reportable Baso # (Auto) Not Reportable Absolute Nucleated RBC Not Reportable Total Counted 100 Band Neuts % (Manual) 3 (0 - 10) % Reactive Lymphs % (Man) 3 % Abnorm Lymph % (Manual) 0 % Myelocytes % 3 H ( - 0) % Nucleated RBC % Not Reportable Neutrophils # (Manual) 11.0 H (1.5-6.6) 10^3/uL Lymphocytes # (Manual) 0.6 L (1.5-3.5) 10^3/uL Monocytes # (Manual) 0.3 (0.0-1.0) 10^3/uL Eosinophils # (Manual) 0.4 (0-0.7) 10^3/uL Basophils # (Manual) 0.0 (0-0.1) 10^3/uL Differential Comment MANUAL DIFFERENTIAL Manual Slide Review Indicated Bld Gas Analysis Time 1040 Sample Site RIGHT RADIAL ABG pH 7.41 (7.35-7.45) ABG pCO2 44 (34-45) mmHg ABG pO2 66 L (80-100) mmHg ABG HCO3 27.0 H (22.0-26.0) mmol/L ABG Total CO2 28.4 (21.0-29.0) MMOL/L ABG O2 Saturation 94 (94-98) % ABG Base Excess 2.0 (-2.0-3.0) mmol/L Galo Test POSITIVE VBG pH (7.31-7.41) Ionized Calcium (1.15-1.33) mmol/L O2 Delivery Device VENTILATOR Vent Mode CPAP FiO2 50.00 PEEP 5 cmH2O Pressure Support Vent 12 cmH2O Sodium 138 (135-145) mmol/L Potassium 4.3 (3.5-5.0) mmol/L Chloride 101 (101-111) mmol/L Carbon Dioxide 29 (21-32) mmol/L Anion Gap 8.0 (6-13) BUN 29 H (6-20) mg/dL Creatinine 0.6 (0.4-1.0) mg/dL Estimated GFR (MDRD) 97 (>89) Glucose 102 H (70-100) mg/dL Calcium 8.1 L (8.5-10.3) mg/dL Phosphorus (2.5-4.6) mg/dL Magnesium (1.7-2.8) mg/dL 07/22/22 07/22/22 Range/Units 05:14 05:14 WBC (4.8-10.8) x10^3/uL RBC (4.20-5.40) 10^6/uL Hgb (12.0-16.0) g/dL Hct (37.0-47.0) % MCV (81.0-99.0) fL MCH (27.0-31.0) pg MCHC (32.0-36.0) g/dL RDW (12.0-15.0) % Plt Count (130-450) 10^3/uL MPV (7.9-10.8) fL Neut # (Auto) Lymph # (Auto) Richmond # (Auto) Eos # (Auto) Baso # (Auto) Absolute Nucleated RBC Total Counted Band Neuts % (Manual) (0 - 10) % Reactive Lymphs % (Man) % Abnorm Lymph % (Manual) % Myelocytes % ( - 0) % Nucleated RBC % Neutrophils # (Manual) (1.5-6.6) 10^3/uL Lymphocytes # (Manual) (1.5-3.5) 10^3/uL Monocytes # (Manual) (0.0-1.0) 10^3/uL Eosinophils # (Manual) (0-0.7) 10^3/uL Basophils # (Manual) (0-0.1) 10^3/uL Differential Comment Manual Slide Review Bld Gas Analysis Time Sample Site ABG pH (7.35-7.45) ABG pCO2 (34-45) mmHg ABG pO2 (80-100) mmHg ABG HCO3 (22.0-26.0) mmol/L ABG Total CO2 (21.0-29.0) MMOL/L ABG O2 Saturation (94-98) % ABG Base Excess (-2.0-3.0) mmol/L Galo Test VBG pH 7.409 (7.31-7.41) Ionized Calcium 1.14 L (1.15-1.33) mmol/L O2 Delivery Device Vent Mode FiO2 PEEP cmH2O Pressure Support Vent cmH2O Sodium (135-145) mmol/L Potassium 3.9 (3.5-5.0) mmol/L Chloride (101-111) mmol/L Carbon Dioxide (21-32) mmol/L Anion Gap (6-13) BUN (6-20) mg/dL Creatinine (0.4-1.0) mg/dL Estimated GFR (MDRD) (>89) Glucose (70-100) mg/dL Calcium (8.5-10.3) mg/dL Phosphorus 3.3 (2.5-4.6) mg/dL Magnesium 2.2 (1.7-2.8) mg/dL Assessment/Plan - Problem List (1) Acute respiratory failure with hypoxia Impression: On 07/15, EMS arrived to find patient with a pulse ox of 78% on room air, which subsequently improved with 4L/min nasal cannula oxygen to 89-91%. Her O2 supplement was relatively stable as we started treating her COPD and pneumonia On 07/18, the patient went into alcohol withdrawal with agitation and delerium. Her O2 sat was 88% on 4L nasal cannula. She was then placed on an oxygen mask with 12L/min oxygen.After starting iv Ativan for treatimng alcohol withdrawal, the patient developed respiratory distress, became tachypneic (rate of 32), tachycardic (102), and was placed on a non-rebreather mask. Then an ABG showed severe respiratory acidosis. She was intubated. Chest x-ray was repeated, showed ET tube in the right place, persistent bilateral infiltrates and CHF persist Given the new CHF seen on CXRs, an Echo was ordered however we have no supervisor sound technician here until 07/23. Therefore on 07/20, I performed a limited bedside Echo (see separate note). The Echo showed normal LVEF, and mild diastolic dysfunction present. RV is dilated, but I could not measure her PA pressure. On 07/20 we started CPAP trials, 1 hour each shift, and her iv sedatives were turned off 30 minutes before CPAP. On 07/21 she did 3 CPAP trials of 1 hour, then could not follow directions to measure NIF and weaning parameters, so was put back on the vent at full settings. Today 07/22, shee did 2.5 hours of CPAP in a.m. But in afternoon, she failed after 10 min of CPAP with tachypnea and low TV, was put back on sedatives and vent support SIMV and PEEP 8. Plan: Remain in ICU, on vent Will keep giving her lungs time to work with CPAP trials seeral times a day, with sedatives turned off 30-45 min before CPAP. Each time will see if weaning parameters show she is ready to extubate. Her son Alan from [place] and son Ha (and Ha's daughter) are also in the room. I brought them all up to date about all her diagnoses and the plan. I answered all their questions to their satisfaction. (2) On mechanically assisted ventilation Patient needed IV Ativan drip started several days ago, to manage severe alcohol withdrawal delirium, which made her hypoxic and hypercapnic. ABG showed pH 7.24, PCO2 67. Intubation was requested, and the ED provider came to the ICU and she was intubated after receiving sedatives that he ordered, on 07/18. Plan: Remain in ICU, on the vent. Remain on IV Ativan as one of her sedatives, which will help treat her alcohol withdrawal and provide sedation while on the vent. Also continue iv Fentanyl drip. Will re-attempt CPAP trials with sedatives off 30-45 min prior to CPAP. Cont NG tube feeds that were started 07/21 I am hoping she can be extubated soon, if weaning parameters are good, but with underlying COPD, this may be difficult Continue IV Pepcid BID for stress ulcer prophylaxis (3) Pneumonia Conclusion/Plan: Patient has right upper lobe pneumonia with mild left upper pneumonia. She took one dose of PO azithromycin 500 mg at home on 07/15. On 07/16, she was given azithromycin IV and started on ceftriaxone IV. CT chest w/ IV contrast from 07/16: Right upper lobe consolidation consistent with pneumonia. Mild pneumonia is also seen in the left upper lobe. Bilateral pleural effusions (small on the right and trace on the left). Mediastinal and hilar lymphadenopathy, most likely reactive in the setting of pneumonia. A 5 mm nodule found along the LEFT major fissure. Mild cardiomegaly with severe coronary atherosclerosis. Her blood cultures are negative to date. We have not been able to obtain a sputum sample to send for culture, even on the vent. Plan: Continue oxygen supplementation, now on a vent Continue IV ceftriaxone, she elizalde finished Zithromax Continue nebulizers Qualifiers: Pneumonia type: due to unspecified organism Laterality: bilateral Lung location: upper lobe of lung Qualified Code(s): J18.9 - Pneumonia, unspecified organism (4) COPD with exacerbation Conclusion/Plan: Patient has a history of COPD likely due to her extensive smoking history (56 years) and being a "chain smoker". At baseline, she does not require supplemental oxygen; however, she has needed at least 4L/min of oxygen to keep her O2 sat in the low 90%. Initially, nebulized bronchodilator treatments resulted in significant improvement in her ability to breathe, but is still very short of breath when walking. Today 07/18, her breathing worsened due to IV Ativan that was needed for treating her acute alcohol withdrawal. She was then placed on an oxygen mask with 12L/min oxygen. She then needed to be intubated today Plan: Continue bronchodilator nebulizer treatments Continue supplemental oxygen, now on the vent (5) Alcohol withdrawal delirium Impression: The night of 07/16, the patient reported visual hallucinations of lions and tigers in her room. Initially we believed this was a result of hyponatremia or from iatrogenic hyperthyroidism (excessive Synthroid, based on very low TSH result). Throughout the night of 07/17 until morning of 07/18, the patient believed she was on a ship going to [place] and was very anxious. She even sent multiple lengthy texts to her son about how she was on a boat. Furthermore, she also assigned nicknames to all the nursing staff, such as 'cinda rodriguez', 'the head master', and 'tiny flower'. I had a suspicion that she was going through alcohol withdrawal, based on having a high MCV, and that it is 48 houyrs since admission, I ordered a CIWA score which was 14. Initially, the patient did not report alcohol use. However, after speaking with her son Ha at bedside 07/18, he reported that she has been mixing cheap boxed wine and more expensive bottled wine in an old orange juice gallon container. She then mixes this concoction with toy sophie. She drinks this from noon until she goes to sleep at about 2200. Ha estimates that she drinks 1.5L of wine d aily. The patient herself has not admitted to her alcohol habits and was even embarrassed to admit her 50+ years smoking habits on this admission. The patient continued to be confused and agitated. She was not speaking coherently and was not oriented to place or time. I ordered IV Ativan 2 mg x1 an d a STAT head CT to rule out CVA. Head CT found: No acute intracranial abnormality Patient was transferred to the ICU after returning from CT. JOAN ortiz ordered, with iv Ativan drip. On the Ativan drip, she was less combative but became more hypopneic and a blood gas was ordered (see #2 #3) Thiamine supplementation started. Plan: Remain in the ICU, on the vent, on IV Ativan for sedation while on the vent, and to treat her alcohol withdrawal. Also continue iv Fentanyl drip. Continue daily Thiamine (6) Cor Pulmonale A very dilated RV was seen on a limited bedside Echo, which was done 07/21. This is very likely from her longstanding smoking, and COPD. Plan: Continue with present meds and management. When she is extubated, we will discuss managing her COPD better, quitting smoking and that she is a candidate to attend pulmonary rehab once she stabilizes (7) Hyponatremia Conclusion/Plan: This was likely hypovolemic hyponatremia due to not eating much in the last few weeks and also alcohol abuse. Patient reports she has not been hungry because of grief after her . On admission, she was hyponatremic and her sodium level was 123. On 07/17, it has improved to 128. When I went to visit with the patient on 07/17, she did not remember that we had a lengthy conversation yesterday about her late . Initially, I thought this was due to her low sodium levels yesterday. Today 07/18, her BNP came back high at 229. Her sodium increased to 132. A CXR was done that showed volume overload We stopped IV saline, and started Lasix No more restriction of free water needed Plan: Cont NG tube feeds started 07/21. Follow CMP and Mg intermittently Continue with ICU electrolyte protocol. (8) Incidental lung nodule, > 3mm and < 8mm Conclusion/Plan: Though chest CT was initially ordered by the ER to rule out rib fractures from her fall, several lung findings were noted. These are especially concerning given the patient's extensive smoking history (56 years) Chest CT w/contrast from 07/16 found a 5 mm nodule along the LEFT major fissure. In addition, there was also mediastinal and hilar adenopathy, a 1.8 cm right paratracheal lymph node, a 1.3 cm clustered AP window lymph node, a 1.3 cm right hilar lymph node, and a 1 cm left hilar lymph node NOTE- Initial radiology report described a 5 mm right-sided nodule, however, it has subsequently been corrected to LEFT-sided nodule. I discussed these findings with the patient, and she expressed understanding. The next morning on 07/17, the nurse reported that the patient was very anxious and worrying about what will happen to her disabled son when she passes away. Plan: Follow up CT recommended in 6-12 months. Then, again at 18-24 months if no change. Cont to treat pneumonia with IV antibiotics which could help with the adenopathy (9) Iatrogenic hyperthyroidism Assessment/Plan: Patient has a history of hypothyroidism for which she takes levothyroxine 125 mcg at home. She has not been on this medication during her stay here. On 07/17, we discovered that her TSH was <0.08. I believe the patient is over treating herself with her levothyroxine, especially now that she is down 30 pounds. Her current hyperthyroidism could be contributing to many of her symptoms including anxiety, brief episode of PSVT, dyspnea, weight loss, and confusion. Plan: Continue the decreased Levothyroxine dose of 112 mcg (10) Tobacco abuse disorder Conclusion/Plan: She has been smoking since she was 21 years old and has never been able to quit despite multiple attempts, including hypnotherapy. She has decreased from 3 packs daily to ~8 cigarettes daily over time. She was very embarrassed to speak about her smoking habits in front of her family and even became tearful when speaking about it. On 07/17, she described herself as being a "chain smoker". She also admitted to us that she has been smoking more since her to help manage her grief. Plan: Nicotine patch daily. I have weaned down the 14 mg patch down to 7 mg, several days ago (11) PSVT (paroxysmal supraventricular tachycardia) Conclusion/Plan: RESOLVED On 07/16 at approximately 13:45, patient had a brief run of PSVT. I suspect this was caused by her current lung disease, however I will also check for hyp erthyroidism. On 07/17, her TSH was <0.08, indicating overtreatment with her Levothyroxine. Plan: Monitor on telemetry
--- NOTE | 2022-07-22 17:08 | ADVANCE CARE PLANNING NOTE ---
Advance Care Planning - Planning Encounter Date: 07/22/22 Time: 13:00 Purpose: To complete a POLST form, including answer questions about CPR versus DNR, answer questions about selective treatment versus full treatment. Parties in Attendance: I spoke to the 2 sons Ha and Clayton in the patient's room, and Ha's daughter was also in the room. The patient is sedated and intubated on the vent. Her RN Kay Camacho was in the room. Decisional Capacity of the Patient: Patient is sedated and intubated, on the vent. She is not able to make any decisions currently. - Diagnosis for Encounter (1) Alcohol withdrawal delirium Summary: Two days after being admitted for pneumonia and COPD exacerbation, the patient developed confusion, combativeness, agitation and delirium and went into alcohol withdrawal. We learned that she drinks about 1-1/2 L of wine daily. She was transferred to the ICU and needed higher amounts of Ativan. This caused her to have respiratory distress, CO2 retention and she was intubated. She has been on Ativan drip to treat the alcohol withdrawal, and on a Fentanyl drip, while intubated. We are also treating the underlying COPD, pneumonia, and volume overload. She has been on the ventilator since then, recently getting daily CPAP trials. - Encounter Subjective/Patient's Story: The patient and her came to visit their son Ha on [facility] from [place] just before COVID started. She told me that Ha has OCD and does not like anyone to enter the house. The patient and her did not return to [place] due to travel restrictions from [facility] and the 3 year pandemic. The 's dementia worsened and he was hospitalized here 4 weeks ago and 3 weeks ago. The patient develop no appetite, lost 30 lbs over those 3 weeks, returned to being a "chain smoker" she said, after having decreased from 3 PPD to 8- cigarettes/day. She developed post-nasal drip and a cough and thought it was allergies. She did not want to be seen by a provider until her son Ha noticed that she was in severe respiratory distress which prompted this admission. She was hypoxic and has been treated for a COPD exacerbation and pneumonia. She did not disclose her alcohol intake, and on her 2nd night she was texting Ha about being on a ship to [place] and the day here, she went into florid alcohol withdrawal. Ha and his daughter came to visit her that day and saw her agitation and confusion. On that day, he told us about her alcohol intake, which was 1.5L of wine per day (and she would mix wine with toy sophie and drink it all day from 10 am until she went to bed at night). He would tell his mother it was too much, but she would get defensive and did not change her intake. She did have an Advanced Directive that she brought in with her in a folder, but she did not disclose that either, at admission. When she was transferred from [facility] to the ICU, it was found by SW. The Directive stated that her DPOA were first Ha and second was Alan, son in [place], and she did not want to have her life prolonged if she was terminal or in a coma or if the effort to sustain her was excessive. The document was signed in Mar 2015. Objective/Medical Story: Approx 48 hrs after being admitted for hpoxia, pneumonia and COPD exacerbation, the patient developed confusion, combativeness, agitation and delirium and went into alcohol withdrawal. We learned that she drinks about 1-1/2 L of wine each daily. [facility] and needed higher amounts of Ativan. This caused her to have respiratory distress, CO2 retention and she was intubated. She has been on Ativan, treating her her alcohol withdrawal. We are also treating the underlying COPD, pneumonia, and volume overload. She has been on the ventilator since then, recently getting daily CPAP trials. Yesterday she had 3 CPAP trials, 1 hour each, which were successful. Today she had a 2-1/2-hour CPAP trial this morning, could not follow directions to undergo parameters by RT to be considered for extubation today. Patient does have an Advanced Directive. It states that the son Ha is the first decision maker, and son Alan is the second decision maker. There is a section that states she does not want her life prolonged if she is comatose, terminal, or if the treatment is too burdensome and outweighs the benefit. Ha pointed out yesterday that this document is null and avoid 7 years after being signed. It was signed on March 2015, therefore it is more than 7 years (as this is July 2022). Today and Ha found a second section in the document that states that it will continue to be in effect, if the patient is unable to make decisions for herself, even if it is longer than the 7-year period of time. She is currently sedated and cannot make decisions for herself Shortly after this admission the patient mentioned to RT that she "wants to join her ". Today the granddaughter in the room said that she heard her grandmother say that she wants to join her and that "wives often joint their spouses after they ". Ha knew about the remark to RT but said he had never heard the discussion at home before, which the granddaughter told all of us today. Goals of Care: I pointed out to both sons that they should keep in mind what their mother had made official, about her goals and wishes, in this Advanced Directive, which in fact was still active, and should be followed. Ha pointed out to Clayton that their mother is not in a coma or terminal and that her current care is not burdensome and is standard. Both sons wanted information about what happens during CPR, how long can a CODE BLUE last, how rib fractures occur and heal, and Ha even asked if male or female CPR compressors push down harder and cause more rib fractures. To this I and pt's RN Kay in the room answered that we go through training which makes everyone achieve the same depth of compressions. The sons wanted to discuss everything and I left for about an hour. When I returned the POLST form was signed by Ha and the form indicated Full Code status and Full Treatment (not Selective Treatment or Comfort directed care). I reiterated that their mother had said (possibly twice) that she "wanted to join her ", which would mean that she wanted to be a DNR, with no defibrillation or CPR. Ha answered that she was probably not thinking right because of her alcohol. I also pointed out that Full treatment would mean we would be managing her like a younger individual, for example getting her transferred automatically for certain complications. Ha answered that when he recently asked her nurse Kay what she is getting now, Kay had answered she is getting everything mentioned under the Full Treatment description on the POLST form. I informed Ha that this POLST form is a guide for what medical c are she should get going forward, based on her desires and the family wishes, it is not about what has been done up until now. Alan said she would not want all that. Ha replied that he is the primary one to decide based on her Advanced Directive and not Clayton. I said that a new POLST form can be signed if there is a change in what the family wants. Ha asked if that can be changed every day. I said everyone would advise you to make one decision and stick to it, since we cannot be altering her care from one day to the next. I asked if he wants to change the POLST now, and Ha answered that he did not want to change it. Plan: POLST form has been completed and she will remain a Full Code. Code Status: Attempt Resuscitation Time spent on advance care plannin min
[2022-07-22] MEDS: ZINC OXIDE 20% OINT 30 GM TUBE TOP PRN (20:44)
[2022-07-22] MEDS: SODIUM CHLORIDE 0.9% 500 ML IV PRN (22:40)
[2022-07-23 04:22] LABS: BASOPHILS % (AUTO) 0.5 %; EOSINOPHILS % (AUTO) 4.2 %; HGB - HEMOGLOBIN 12.4 g/dL (12.0-16.0); LYMPHOCYTES % (AUTO) 11.4 %; MEAN CORPUSCULAR HEMOGLOBIN 36.8 pg (27.0-31.0); MEAN CORPUSCULAR HGB CONC 33.5 g/dL (32.0-36.0); MEAN CORPUSCULAR VOLUME 109.8 fL (81.0-99.0); MEAN PLATELET VOLUME 9.7 fL (7.9-10.8); MONOCYTES % (AUTO) 6.2 %; NEUTROPHILS % (AUTO) 72.6 %; PLT - PLATELET COUNT 226 10^3/uL (130-450); RED BLOOD COUNT 3.37 10^6/uL (4.20-5.40); RED CELL DISTRIBUTION WIDTH 15.1 % (12.0-15.0)
[2022-07-23 04:27] LABS: ABNORMAL LYMPHS % (MANUAL) 0 %
[2022-07-23 04:29] LABS: VBG PH 7.437 (7.31-7.41)
[2022-07-23 04:30] LABS: CALCIUM, IONIZED 1.16 mmol/L (1.15-1.33)
[2022-07-23 04:35] LABS: CALCIUM 8.4 mg/dL (8.5-10.3); CREATININE 0.6 mg/dL (0.4-1.0); MAGNESIUM 1.9 mg/dL (1.7-2.8); POTASSIUM 3.9 mmol/L (3.5-5.0)
[2022-07-23 04:36] LABS: BAND NEUTROPHILS % (MANUAL) 4 %; BASOPHILS # (MANUAL) 0.1 10^3/uL (0-0.1); BASOPHILS % (MANUAL) 1 %; DIFFERENTIAL COMMENT MANUAL DIFFERENTIAL; EOSINOPHILS # (MANUAL) 0.5 10^3/uL (0-0.7); LYMPHOCYTES # (MANUAL) 1.5 10^3/uL (1.5-3.5); LYMPHOCYTES % (MANUAL) 15 %; MONOCYTES # (MANUAL) 0.2 10^3/uL (0.0-1.0); NEUTROPHILS # (MANUAL) 7.7 10^3/uL (1.5-6.6); PLATELET ESTIMATE, MANUAL NORMAL (130-450,000) (NORMAL); PLATELET MORPHOLOGY NORMAL APPEARANCE (NORMAL); RBC MORPHOLOGY (MULTIPLE) NORMAL APPEARANCE (NORMAL); WBC MORPHOLOGY (MULTIPLE) NORMAL APPEARANCE (NORMAL)
[2022-07-23] MEDS: FUROSEMIDE 20 MG/2 ML VIAL IVP SCH ×2 (05:28→13:58)
[2022-07-23] MEDS: SODIUM CHLORIDE FLUSH 0.9% 10 ML SYRINGE IVP PRN ×2 (05:28→20:55)
[2022-07-23] MEDS ORDERED: POTASSIUM CHLORIDE 20 MEQ/15 ML UDC PO ONE ×2 (05:43→18:03)
[2022-07-23] MEDS: ALBUTEROL NEB 2.5 MG/3 ML INH SCH ×4 (07:47→19:00)
[2022-07-23] MEDS: FAMOTIDINE 20 MG/2 ML VIAL IVP SCH ×2 (08:23→20:55)
[2022-07-23] MEDS: NICOTINE 7 MG PATCH TOP SCH (08:25)
[2022-07-23] MEDS: cefTRIAXone 2 GM in SODIUM CHLORIDE 0.9% MINIBAG 100 ML IV SCH (08:28)
[2022-07-23] MEDS: FOLIC ACID 1 MG TABLET PO SCH (08:31)
[2022-07-23] MEDS: polyethylene glycoL 3350 17 GM PACKET PO SCH (08:33)
[2022-07-23] MEDS: ENOXAPARIN 40 MG/0.4 ML SYRINGE SUBQ SCH (08:37)
[2022-07-23] MEDS: SODIUM CHLORIDE FLUSH 0.9% 10 ML SYRINGE IVP SCH ×3 (08:41→20:55)
[2022-07-23] MEDS: CHLORHEXIDINE GLUCONATE 15 ML UDC PO SCH ×2 (09:50→20:55)
[2022-07-23] MEDS ORDERED: BISACODYL 10 MG SUPP PR ONE (09:56)
[2022-07-23] MEDS: THIAMINE INJ 100 MG in SODIUM CHLORIDE 0.9% 50 ML IV SCH (11:05)
[2022-07-23] MEDS: ZINC OXIDE 20% OINT 30 GM TUBE TOP PRN ×2 (12:30→21:19)
[2022-07-23] MEDS: fentaNYL 2,500 MCG/250 ML 2,500 MCG/250 ML BAG IV SCH (15:25)
--- NOTE | 2022-07-23 19:23 | PROVIDER PROGRESS NOTE ---
Subjective - Prog Note Date Prog Note Date: 07/23/22 Prog Note Time: 19:11 - Subjective Subjective: Today we spent most of her time trying to get her off the vent. Long CPAP trial. All parameters were good except for the fact that her neck was -5 and she really was not responding to commands. Current Medications - Current Medications Current Medications: Active Medications Albuterol (Albuterol Neb 2.5 Mg/3 Ml) 2.5 mg INH RTQ4H PRN PRN Reason: Wheezing Albuterol (Albuterol Neb 2.5 Mg/3 Ml) 2.5 mg INH RTQID [facility] Last Admin: 07/23/22 15:45 Dose: 2.5 mg Chlorhexidine Gluconate (Chlorhexidine Gluconate 15 Ml Udc) 15 ml PO BID [facility] Last Admin: 07/23/22 09:50 Dose: 15 ml Enoxaparin Sodium (Enoxaparin 40 Mg/0.4 Ml Syringe) 40 mg SUBQ DAILY [facility] Last Admin: 07/23/22 08:37 Dose: 40 mg Famotidine (Famotidine 20 Mg/2 Ml Vial) 20 mg IVP BID [facility] Last Admin: 07/23/22 08:23 Dose: 20 mg Folic Acid (Folic Acid 1 Mg Tablet) 1 mg PO DAILY [facility] Last Admin: 07/23/22 08:31 Dose: 1 mg Furosemide (Furosemide 20 Mg/2 Ml Vial) 20 mg IVP BIDDIURETIC [facility] Last Admin: 07/23/22 13:58 Dose: 20 mg Ceftriaxone Sodium 2 gm/ (Sodium Chloride) 100 mls @ 200 mls/hr IV DAILY [facility] Last Infusion: 07/23/22 09:30 Dose: Infused Thiamine HCl 100 mg/ Sodium (Chloride) 51 mls @ 100 mls/hr IV DAILY [facility] Last Infusion: 07/23/22 12:00 Dose: Infused Acetaminophen (Acetaminophen) 1,000 mg in 100 mls @ 400 mls/hr IV Q6HR PRN PRN Reason: Pain or Fever > 38C (100.4F) Last Infusion: 07/21/22 21:23 Dose: Infused Lorazepam (Ativan) 100 mls @ 0.88 mls/hr IV .Q72H [facility]; Protocol Last Titration: 07/23/22 17:43 Dose: 0.01 mg/kg/hr, 0.88 mls/hr Sodium Chloride (Normal Saline 0.9%) 500 mls @ 20 mls/hr IV Q24H PRN PRN Reason: TKO RATE Last Admin: 07/22/22 22:40 Dose: 20 mls/hr Fentanyl (Fentanyl) 2,500 mcg in 250 mls @ 8.8 mls/hr IV .[id number] [facility]; Protocol Last Titration: 07/23/22 18:50 Dose: 1 mcg/kg/hr, 8.8 mls/hr Lorazepam (Lorazepam 2 Mg/Ml Vial) 1 mg IVP Q30M PRN; Protocol PRN Reason: CIWA >8 Last Admin: 07/18/22 15:37 Dose: 1 mg Multi-Ingredient Ointment (Zinc Oxide 20% Oint 30 Gm Tube) 1 applic TOP PRN PRN PRN Reason: Skin Care Last Admin: 07/23/22 12:30 Dose: 1 applic Nicotine (Nicotine 7 Mg Patch) 1 patch TOP DAILY [facility] Last Admin: 07/23/22 08:25 Dose: 1 patch Ondansetron HCl (Ondansetron 4 Mg/2 Ml Vial) 4 mg IVP Q6HR PRN PRN Reason: Nausea / Vomiting Polyethylene Glycol (Polyethylene Glycol 3350 17 Gm Packet) 17 gm PO DAILY [facility] Last Admin: 07/23/22 08:33 Dose: 17 gm Sodium Chloride (Sodium Chloride Flush 0.9% 10 Ml Syringe) 10 ml IVP PRN PRN PRN Reason: NEEDED PER PROVIDER ORDERS Last Admin: 07/23/22 05:28 Dose: 10 ml Sodium Chloride (Sodium Chloride Flush 0.9% 10 Ml Syringe) 10 ml IVP 0100,0900,1700 [facility] Last Admin: 07/23/22 17:33 Dose: 10 ml Aspirin [Adult Low Dose Aspirin EC] 81 mg PO DAILY 05/27/19 clonazePAM [Clonazepam] 0.5 mg PO DAILY PRN 05/27/19 Cetirizine [ZyrTEC] 10 mg PO DAILY PRN 07/16/22 Cholecalciferol (Vitamin D3) [Vitamin D3] 100 mcg PO DAILY 07/16/22 Estradiol [Estrace] 1 g VG DAILY 07/16/22 Ibuprofen [Motrin] 400 mg PO TID PRN 07/16/22 Ipratropium/Albuterol [Combivent Respimat] 1 puffs INH Q6H PRN 07/16/22 Levothyroxine [Synthroid] 125 mcg PO QDAC 07/16/22 amLODIPine [Norvasc] 5 mg PO DAILY 07/16/22 Objective - Vital Signs/Intake & Output Reviewed Vital Signs: Yes Vital Signs: Vital Signs x48h Temp Pulse Pulse Resp BP Pulse Ox 07/23/22 19:00 37.4 C 67 16 123/68 96 07/23/22 18:00 37.5 C 72 16 109/69 95 07/23/22 17:00 37.3 C 80 16 151/91 H 95 07/23/22 16:47 86 07/23/22 16:00 37.5 C 77 28 H 134/79 H 94 07/23/22 15:45 64 07/23/22 15:00 37.5 C 72 26 H 114/64 96 07/23/22 14:35 68 07/23/22 14:00 37.5 C 75 25 H 120/71 95 07/23/22 13:31 78 07/23/22 13:00 37.4 C 77 24 146/77 H 95 07/23/22 12:00 37.4 C 74 23 120/65 94 07/23/22 11:24 84 07/23/22 11:16 90 12 Intake & Output: Intake & Output 07/20/22 07/21/22 07/22/22 07/23/22 23:59 23:59 23:59 23:59 Intake Total 2121.591 4092.112 3259.367 3067.233 Output Total 1198 1972 2578 1988 Balance 923.591 -505.258 016.770 5338.233 - Objective General Appearance: positive: Other (on vent, sedated w fentanyl and low dose ativan) Eyes Bilateral: positive: PERRL, EOMI ENT: positive: Pharynx nml Neck: positive: No JVD. negative: Stiff neck Respiratory: positive: No respiratory distress. negative: Wheezes, Rales, Rhonchi - Lab Results Fish Bones: 07/23/22 04:16 07/23/22 16:06 Other Labs: Lab Results x24hrs 07/23/22 07/23/22 07/23/22 Range/Units 16:06 04:16 04:16 WBC 10.0 (4.8-10.8) x10^3/uL RBC 3.37 L (4.20-5.40) 10^6/uL Hgb 12.4 (12.0-16.0) g/dL Hct 37.0 (37.0-47.0) % MCV 109.8 H (81.0-99.0) fL MCH 36.8 H (27.0-31.0) pg MCHC 33.5 (32.0-36.0) g/dL RDW 15.1 H (12.0-15.0) % Plt Count 226 (130-450) 10^3/uL MPV 9.7 (7.9-10.8) fL Neut # (Auto) Not Reportable Lymph # (Auto) Not Reportable [place] # (Auto) Not Reportable Eos # (Auto) Not Reportable Baso # (Auto) Not Reportable Absolute Nucleated RBC Not Reportable Total Counted 100 Band Neuts % (Manual) 4 (0 - 10) % Abnorm Lymph % (Manual) 0 % Nucleated RBC % Not Reportable Neutrophils # (Manual) 7.7 H (1.5-6.6) 10^3/uL Lymphocytes # (Manual) 1.5 (1.5-3.5) 10^3/uL Monocytes # (Manual) 0.2 (0.0-1.0) 10^3/uL Eosinophils # (Manual) 0.5 (0-0.7) 10^3/uL Basophils # (Manual) 0.1 (0-0.1) 10^3/uL Differential Comment MANUAL DIFFERENTIAL WBC Morphology NORMAL APPEARANCE (NORMAL) Platelet Estimate NORMAL (130-450,000) (NORMAL) Platelet Morphology NORMAL APPEARANCE (NORMAL) RBC Morph Micro Appear NORMAL APPEARANCE (NORMAL) VBG pH (7.31-7.41) Ionized Calcium (1.15-1.33) mmol/L Sodium (135-145) mmol/L Potassium 3.9 (3.5-5.0) mmol/L Chloride (101-111) mmol/L Carbon Dioxide (21-32) mmol/L Anion Gap (6-13) BUN (6-20) mg/dL Creatinine (0.4-1.0) mg/dL Estimated GFR (MDRD) (>89) Glucose (70-100) mg/dL Calcium (8.5-10.3) mg/dL Phosphorus (2.5-4.6) mg/dL Magnesium (1.7-2.8) mg/dL Prealbumin 8 L (18-45) mg/dL 07/23/22 07/23/22 Range/Units 04:16 04:16 WBC (4.8-10.8) x10^3/uL RBC (4.20-5.40) 10^6/uL Hgb (12.0-16.0) g/dL Hct (37.0-47.0) % MCV (81.0-99.0) fL MCH (27.0-31.0) pg MCHC (32.0-36.0) g/dL RDW (12.0-15.0) % Plt Count (130-450) 10^3/uL MPV (7.9-10.8) fL Neut # (Auto) Lymph # (Auto) [place] # (Auto) Eos # (Auto) Baso # (Auto) Absolute Nucleated RBC Total Counted Band Neuts % (Manual) (0 - 10) % Abnorm Lymph % (Manual) % Nucleated RBC % Neutrophils # (Manual) (1.5-6.6) 10^3/uL Lymphocytes # (Manual) (1.5-3.5) 10^3/uL Monocytes # (Manual) (0.0-1.0) 10^3/uL Eosinophils # (Manual) (0-0.7) 10^3/uL Basophils # (Manual) (0-0.1) 10^3/uL Differential Comment WBC Morphology (NORMAL) Platelet Estimate (NORMAL) Platelet Morphology (NORMAL) RBC Morph Micro Appear (NORMAL) VBG pH 7.437 H (7.31-7.41) Ionized Calcium 1.16 (1.15-1.33) mmol/L Sodium 139 (135-145) mmol/L Potassium 3.9 (3.5-5.0) mmol/L Chloride 101 (101-111) mmol/L Carbon Dioxide 29 (21-32) mmol/L Anion Gap 9.0 (6-13) BUN 28 H (6-20) mg/dL Creatinine 0.6 (0.4-1.0) mg/dL Estimated GFR (MDRD) 97 (>89) Glucose 108 H (70-100) mg/dL Calcium 8.4 L (8.5-10.3) mg/dL Phosphorus 3.0 (2.5-4.6) mg/dL Magnesium 1.9 (1.7-2.8) mg/dL Prealbumin (18-45) mg/dL Assessment/Plan - Problem List (1) Acute respiratory failure with hypoxia Impression: On 07/15, EMS arrived to find patient with a pulse ox of 78% on room air, which subsequently improved with 4L/min nasal cannula oxygen to 89-91%. Her O2 supplement was relatively stable as we started treating her COPD and pneumonia On 07/18, the patient went into alcohol withdrawal with agitation and delerium. Her O2 sat was 88% on 4L nasal cannula. She was then placed on an oxygen mask with 12L/min oxygen.After starting iv Ativan for treatimng alcohol withdrawal, the patient developed respiratory distress, became tachypneic (rate of 32), tachycardic (102), and was placed on a non-rebreather mask. Then an ABG showed severe respiratory acidosis. She was intubated. 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 Therefore on 07/20, I performed a limited bedside Echo (see separate note). The Echo showed normal LVEF, and mild diastolic dysfunction present. RV is dilated, but I could not measure her PA pressure. On 07/20 we started CPAP trials, 1 hour each shift, and her iv sedatives were turned off 30 minutes before CPAP. On 07/21 she did 3 CPAP trials of 1 hour, then could not follow directions to measure NIF and weaning parameters, so was put back on the vent at full settings. On 07/22, she did 2.5 hours of CPAP in a.m. But in afternoon, she failed after 10 min of CPAP with tachypnea and low TV, was put back on sedatives and vent support SIMV and PEEP 8. Today she did hours of CPAP and was off fentanyl and ativan most of the day from this morning, and no tachypnea, no tachycardia, was able to but nif was only - 5, TV she generated 400 cc on her own. On 07/15, EMS arrived to find patient with a pulse ox of 78% on room air, which subsequently improved with 4L/min nasal cannula oxygen to 89-91%. Her O2 supplement was relatively stable as we started treating her COPD and pneumonia Plan: Remain in ICU, on vent Will keep giving her lungs time to work with CPAP trials seeral times a day, with sedatives turned off 30-45 min before CPAP. Each time will see if weaning parameters show she is ready to extubate. Son at the bedside and I discussed the updates with him. (2) On mechanically assisted ventilation Patient needed IV Ativan drip started several days ago, to manage severe alcohol withdrawal delirium, which made her hypoxic and hypercapnic. ABG showed pH 7.24, PCO2 67. Intubation was requested, and the ED provider came to the ICU and she was intubated after receiving sedatives that he ordered, on 07/18. Plan: Remain in ICU, on the vent. Remain on IV Ativan as one of her sedatives, which will help treat her alcohol withdrawal and provide sedation while on the vent. Also continue iv Fentanyl drip. Continue CPAP trials with sedatives off 30-45 min prior to CPAP and will try again tomorrow. Cont NG tube feeds that were started 07/21 Continue IV Pepcid BID for stress ulcer prophylaxis (3) Pneumonia Conclusion/Plan: Patient has right upper lobe pneumonia with mild left upper pneumonia. She took one dose of PO azithromycin 500 mg at home on 07/15. On 07/16, she was given azithromycin IV and started on ceftriaxone IV. Today is Day #[address] chest w/ IV contrast from 07/16: Right upper lobe consolidation consistent with pneumonia. Mild pneumonia is also seen in the left upper lobe. Bilateral pleural effusions (small on the right and trace on the left). Mediastinal and hilar lymphadenopathy, most likely reactive in the setting of pneumonia. A 5 mm nodule found along the LEFT major fissure. Mild cardiomegaly with severe coronary atherosclerosis. Her blood cultures are negative to date. We have not been able to obtain a sputum sample to send for culture, even on the vent. Plan: Continue oxygen supplementation, now on a vent stop ceftriaxone. Continue nebulizers Qualifiers: Pneumonia type: due to unspecified organism Laterality: bilateral Lung location: upper lobe of lung Qualified Code(s): J18.9 - Pneumonia, unspecified organism (4) COPD with exacerbation Conclusion/Plan: Patient has a history of COPD likely due to her extensive smoking history (56 years) and being a "chain smoker". At baseline, she does not require supplemental oxygen; however, she has needed at least 4L/min of oxygen to keep her O2 sat in the low 90%. Initially, nebulized bronchodilator treatments resulted in significant improvement in her ability to breathe, but is still very short of breath when walking. 07/18, her breathing worsened due to IV Ativan that was needed for treating her acute alcohol withdrawal. She was then placed on an oxygen mask with 12L/min oxygen. She then needed to be intubated Plan: Continue bronchodilator nebulizer treatments Continue supplemental oxygen, now on the vent (5) Alcohol withdrawal delirium Impression: Per the previous hospitalist on service: The night of 07/16, the patient reported visual hallucinations of lions and tigers in her room. Initially we believed thi s was a result of hyponatremia or from iatrogenic hyperthyroidism (excessive Synthroid, based on very low TSH result). Throughout the night of 07/17 until morning of 07/18, the patient believed she was on a ship going to [place] and was very anxious. She even sent multiple lengthy texts to her son about how she was on a boat. Furthermore, she also assigned nicknames to all the nursing staff, such as 'tiny fairy', 'the head master', and 'tiny flower'. I had a suspicion that she was going through alcohol withdrawal, based on having a high MCV, and that it is 48 houyrs since admission, I ordered a CIWA score which was 14. Initially, the patient did not report alcohol use. However, after speaking with her son Ha at bedside 07/18, he reported that she has been mixing cheap boxed wine and more expensive bottled wine in an old orange juice gallon container. She then mixes this concoction with toy sophie. She drinks this from noon until she goes to sleep at about 2200. Ha estimates that she drinks 1.5L of wine daily. The patient herself has not admitted to her alcohol habits and was even embarrassed to admit her 50+ years smoking habits on this admission. The patient continued to be confused and agitated. She was not speaking coherently and was not oriented to place or time. I ordered IV Ativan 2 mg x1 and a STAT head CT to rule out CVA. Head CT found: No acute intracranial abnormality Patient was transferred to the ICU after returning from CT. JOAN ortiz ordered, with iv Ativan drip. On the Ativan drip, she was less combative but became more hypopneic and a blood gas was ordered (see #2 #3) Thiamine supplementation started. Plan: Remain in the ICU, on the vent, on IV Ativan for sedation while on the vent, and to treat her alcohol withdrawal. Also continue iv Fentanyl drip. Continue daily Thiamine (6) Cor Pulmonale A very dilated RV was seen on a limited bedside Echo, which was done 07/21. This is very likely from her longstanding smoking, and COPD. Plan: Continue with present meds and management. When she is extubated, we will discuss managing her COPD better, quitting smoking and that she is a candidate to attend pulmonary rehab once she stabilizes (7) Hyponatremia Conclusion/Plan: This was likely hypovolemic hyponatremia due to not eating much in the last few weeks and also alcohol abuse. Patient reports she has not been hungry because of grief after her . On admission, she was hyponatremic and her sodium level was 123. On 07/17, it has improved to 128. When I went to visit with the patient on 07/17, she did not remember that we had a lengthy conversation yesterday about her late . Initially, I thought this was due to her low sodium levels yesterday. 07/18, her BNP came back high at 229. Her sodium increased to 132. A CXR was done that showed volume overload We stopped IV saline, and started Lasix No more restriction of free water needed Sodium has been normal since July 19. Slowly and steadily climbing. She went from 135 on that day and is 139 today. Plan: Cont NG tube feeds started 07/21.In tube feeds she is getting free water. Follow CMP and Mg intermittently Continue with ICU electrolyte protocol. (8) Incidental lung nodule, > 3mm and < 8mm Conclusion/Plan: Though chest CT was initially ordered by the ER to rule out rib fractures from her fall, several lung findings were noted. These are especially concerning given the patient's extensive smoking history (56 years) Chest CT w/contrast from 5/2 found a 5 mm nodule along the LEFT major fissure. In addition, there was also mediastinal and hilar adenopathy, a 1.8 cm right paratracheal lymph node, a 1.3 cm clustered AP window lymph node, a 1.3 cm right hilar lymph node, and a 1 cm left hilar lymph node NOTE- Initial radiology report described a 5 mm right-sided nodule, however, it has subsequently been corrected to LEFT-sided nodule. These findings were discussed with the patient, and she expressed understanding. The next morning on 07/17, the nurse reported that the patient was very anxious and worrying about what will happen to her disabled son when she passes away. Plan: Follow up CT recommended in 6-12 months. Then, again at 18-24 months if no change. Cont to treat pneumonia with IV antibiotics which could help with the adenopathy (9) Iatrogenic hyperthyroidism Assessment/Plan: Patient has a history of hypothyroidism for which she takes levothyroxine 125 mcg at home. She has not been on this medication during her stay here. On 07/17, we discovered that her TSH was <0.08. I believe the patient is over treating herself with her levothyroxine, especially now that she is down 30 pounds. Her current hyperthyroidism could be contributing to many of her symptoms including anxiety, brief episode of PSVT, dyspnea, weight loss, and confusion. Plan: Continue the decreased Levothyroxine dose of 112 mcg (10) Tobacco abuse disorder Conclusion/Plan: She has been smoking since she was 21 years old and has never been able to quit despite multiple attempts, including hypnotherapy. She has decreased from 3 packs daily to ~8 cigarettes daily over time. She was very embarrassed to speak about her smoking habits in front of her family and even became tearful when speaking about it. On 07/17, she described herself as being a "chain smoker". She also admitted to us that she has been smoking more since her to help manage her grief. Plan: Nicotine patch daily. I have weaned down the 14 mg patch down to 7 mg, several days ago (11) PSVT (paroxysmal supraventricular tachycardia) Conclusion/Plan: RESOLVED On 07/16 at approximately 13:45, patient had a brief run of PSVT. I suspect this was caused by her current lung disease, however I will also check for hypert hyroidism. On 07/17, her TSH was <0.08, indicating overtreatment with her Levothyroxine. Plan: Monitor on telemetry
[2022-07-24] MEDS: SODIUM CHLORIDE 0.9% 500 ML IV PRN (00:54)
[2022-07-24] MEDS: fentaNYL 2,500 MCG/250 ML 2,500 MCG/250 ML BAG IV SCH (00:56)
[2022-07-24 05:02] LABS: BASOPHILS % (AUTO) 0.6 %; EOSINOPHILS % (AUTO) 3.7 %; HCT - HEMATOCRIT 34.7 % (37.0-47.0); HGB - HEMOGLOBIN 11.8 g/dL (12.0-16.0); MEAN CORPUSCULAR HEMOGLOBIN 36.8 pg (27.0-31.0); MEAN CORPUSCULAR VOLUME 108.1 fL (81.0-99.0); MONOCYTES % (AUTO) 6.1 %; NEUTROPHILS % (AUTO) 70.9 %; PLT - PLATELET COUNT 251 10^3/uL (130-450); RED BLOOD COUNT 3.21 10^6/uL (4.20-5.40); RED CELL DISTRIBUTION WIDTH 14.8 % (12.0-15.0); WHITE BLOOD COUNT 10.8 x10^3/uL (4.8-10.8)
[2022-07-24 05:07] LABS: ABNORMAL LYMPHS % (MANUAL) 0 %; BAND NEUTROPHILS % (MANUAL) 0 %
[2022-07-24 05:08] LABS: CALCIUM, IONIZED 1.17 mmol/L (1.15-1.33); VBG PH 7.463 (7.31-7.41)
[2022-07-24 05:15] LABS: CALCIUM 8.4 mg/dL (8.5-10.3); CREATININE 0.6 mg/dL (0.4-1.0); MAGNESIUM 1.8 mg/dL (1.7-2.8)
[2022-07-24 05:24] LABS: DIFFERENTIAL COMMENT MANUAL DIFFERENTIAL; EOSINOPHILS # (MANUAL) 0.8 10^3/uL (0-0.7); LYMPHOCYTES # (MANUAL) 1.3 10^3/uL (1.5-3.5); LYMPHOCYTES % (MANUAL) 12 %; MONOCYTES # (MANUAL) 0.5 10^3/uL (0.0-1.0); NEUTROPHILS # (MANUAL) 8.2 10^3/uL (1.5-6.6); PLATELET ESTIMATE, MANUAL NORMAL (130-450,000) (NORMAL); PLATELET MORPHOLOGY NORMAL APPEARANCE (NORMAL); RBC MORPHOLOGY (MULTIPLE) NORMAL APPEARANCE (NORMAL); WBC MORPHOLOGY (MULTIPLE) NORMAL APPEARANCE (NORMAL)
[2022-07-24] MEDS: SODIUM CHLORIDE FLUSH 0.9% 10 ML SYRINGE IVP PRN ×2 (05:53→08:56)
[2022-07-24] MEDS: FUROSEMIDE 20 MG/2 ML VIAL IVP SCH ×2 (05:53→14:11)
[2022-07-24] MEDS ORDERED: MAGNESIUM SULFATE 2 GRAM 2 GM/50 ML BAG IV ONE (06:38)
[2022-07-24 08:10] LABS: ABG OXYGEN SATURATION 95 % (94-98); ABG PCO2 41 mmHg (34-45); ABG PO2 67 mmHg (80-100); ABG TCO2 32.1 MMOL/L (21.0-29.0); ALLEN TEST POSITIVE
[2022-07-24 08:11] LABS: ABG MODE OF VENTILATION ASSIST/CONTROL; ABG RESPIRATORY RATE 16 b/min
[2022-07-24] MEDS: ALBUTEROL NEB 2.5 MG/3 ML INH SCH ×3 (08:39→15:36)
[2022-07-24] MEDS: ENOXAPARIN 40 MG/0.4 ML SYRINGE SUBQ SCH (08:55)
[2022-07-24] MEDS: CHLORHEXIDINE GLUCONATE 15 ML UDC PO SCH ×2 (08:55→20:07)
[2022-07-24] MEDS: FAMOTIDINE 20 MG/2 ML VIAL IVP SCH ×2 (08:56→20:07)
[2022-07-24] MEDS: SODIUM CHLORIDE FLUSH 0.9% 10 ML SYRINGE IVP SCH ×3 (08:56→20:07)
[2022-07-24] MEDS: NICOTINE 7 MG PATCH TOP SCH (09:13)
[2022-07-24] MEDS: THIAMINE INJ 100 MG in SODIUM CHLORIDE 0.9% 50 ML IV SCH (09:48)
[2022-07-24] MEDS: polyethylene glycoL 3350 17 GM PACKET PO SCH (09:51)
[2022-07-24] MEDS: FOLIC ACID 1 MG TABLET PO SCH (09:51)
[2022-07-24 12:45] LABS: ABG PCO2 52 mmHg (34-45); ABG PH 7.38 (7.35-7.45)
[2022-07-24 12:46] LABS: ABG BASE EXCESS 3.7 mmol/L (-2.0-3.0); ABG HCO3 29.9 mmol/L (22.0-26.0); ABG OXYGEN SATURATION 94 % (94-98); ABG PO2 72 mmHg (80-100); ABG TCO2 31.5 MMOL/L (21.0-29.0); ALLEN TEST POSITIVE
--- NOTE | 2022-07-24 14:15 | PROVIDER PROGRESS NOTE ---
Subjective - Prog Note Date Prog Note Date: 07/24/22 Prog Note Time: 14:13 - Subjective Subjective: This morning we did a weaning trial. We stopped all of her sedatives. Gave her 2 to 3 hours of CPAP with pressure support 14. She has episodes of tachypnea, and really is not able to cooperate. She does not follow commands. But she maintained her O2 sats, and blood pressure remained stable. Peak pressures on the vent were also stable. We extubated her, and she does have intermittent tachypnea, and her immediate request was to get out of bed to have a bowel movement. She does not know where she is. She wants to go home. Current Medications - Current Medications Current Medications: Active Medications Albuterol (Albuterol Neb 2.5 Mg/3 Ml) 2.5 mg INH RTQ4H PRN PRN Reason: Wheezing Albuterol (Albuterol Neb 2.5 Mg/3 Ml) 2.5 mg INH RTQID [facility] Last Admin: 07/24/22 15:36 Dose: 2.5 mg Chlorhexidine Gluconate (Chlorhexidine Gluconate 15 Ml Udc) 15 ml PO BID [facility] Last Admin: 07/24/22 08:55 Dose: 15 ml Enoxaparin Sodium (Enoxaparin 40 Mg/0.4 Ml Syringe) 40 mg SUBQ DAILY [facility] Last Admin: 07/24/22 08:55 Dose: 40 mg Famotidine (Famotidine 20 Mg/2 Ml Vial) 20 mg IVP BID [facility] Last Admin: 07/24/22 08:56 Dose: 20 mg Folic Acid (Folic Acid 1 Mg Tablet) 1 mg PO DAILY [facility] Last Admin: 07/24/22 09:51 Dose: 1 mg Furosemide (Furosemide 20 Mg/2 Ml Vial) 20 mg IVP BIDDIURETIC [facility] Last Admin: 07/24/22 14:11 Dose: 20 mg Thiamine HCl 100 mg/ Sodium (Chloride) 51 mls @ 100 mls/hr IV DAILY [facility] Last Infusion: 07/24/22 10:20 Dose: Infused Acetaminophen (Acetaminophen) 1,000 mg in 100 mls @ 400 mls/hr IV Q6HR PRN PRN Reason: Pain or Fever > 38C (100.4F) Last Infusion: 07/21/22 21:23 Dose: Infused Lorazepam (Ativan) 100 mls @ 0.88 mls/hr IV .Q72H [facility]; Protocol Last Titration: 07/24/22 12:50 Dose: Infused Fentanyl (Fentanyl) 2,500 mcg in 250 mls @ 8.8 mls/hr IV .[id number] [facility]; Protocol Last Titration: 07/24/22 12:48 Dose: Infused Sodium Chloride (Normal Saline 0.9%) 500 mls @ 85 mls/hr IV Q24H PRN PRN Reason: TKO RATE Lorazepam (Lorazepam 2 Mg/Ml Vial) 1 mg IVP Q30M PRN; Protocol PRN Reason: CIWA >8 Last Admin: 07/18/22 15:37 Dose: 1 mg Multi-Ingredient Ointment (Zinc Oxide 20% Oint 30 Gm Tube) 1 applic TOP PRN PRN PRN Reason: Skin Care Last Admin: 07/23/22 21:19 Dose: 1 applic Nicotine (Nicotine 7 Mg Patch) 1 patch TOP DAILY [facility] Last Admin: 07/24/22 09:13 Dose: 1 patch Ondansetron HCl (Ondansetron 4 Mg/2 Ml Vial) 4 mg IVP Q6HR PRN PRN Reason: Nausea / Vomiting Polyethylene Glycol (Polyethylene Glycol 3350 17 Gm Packet) 17 gm PO DAILY [facility] Last Admin: 07/24/22 09:51 Dose: 17 gm Sodium Chloride (Sodium Chloride Flush 0.9% 10 Ml Syringe) 10 ml IVP PRN PRN PRN Reason: NEEDED PER PROVIDER ORDERS Last Admin: 07/24/22 08:56 Dose: 10 ml Sodium Chloride (Sodium Chloride Flush 0.9% 10 Ml Syringe) 10 ml IVP 0100,0900,1700 [facility] Last Admin: 07/24/22 08:56 Dose: 20 ml Aspirin [Adult Low Dose Aspirin EC] 81 mg PO DAILY 05/27/19 clonazePAM [Clonazepam] 0.5 mg PO DAILY PRN 05/27/19 Cetirizine [ZyrTEC] 10 mg PO DAILY PRN 07/16/22 Cholecalciferol (Vitamin D3) [Vitamin D3] 100 mcg PO DAILY 07/16/22 Estradiol [Estrace] 1 g VG DAILY 07/16/22 Ibuprofen [Motrin] 400 mg PO TID PRN 07/16/22 Ipratropium/Albuterol [Combivent Respimat] 1 puffs INH Q6H PRN 07/16/22 Levothyroxine [Synthroid] 125 mcg PO QDAC 07/16/22 amLODIPine [Norvasc] 5 mg PO DAILY 07/16/22 Objective - Vital Signs/Intake & Output Reviewed Vital Signs: Yes Vital Signs: Vital Signs x48h Temp Pulse Pulse Resp BP Pulse Ox O2 Flow Rate 07/24/22 14:00 37.2 C 91 24 151/75 H 90 L 8 07/24/22 13:00 80 26 H 121/61 95 8 07/24/22 12:00 85 27 H 126/66 91 L 8 07/24/22 11:55 8 07/24/22 11:00 74 29 H 122/66 92 07/24/22 10:38 80 07/24/22 10:00 37.3 C 78 29 H 133/68 H 94 07/24/22 09:00 37.4 C 87 38 H 108/95 H 92 07/24/22 08:25 76 07/24/22 08:00 37.5 C 64 16 127/61 95 07/24/22 07:55 67 07/24/22 07:33 60 16 07/24/22 07:00 37.5 C 60 16 108/55 L 94 Intake & Output: Intake & Output 07/21/22 07/22/22 07/23/22 07/24/22 23:59 23:59 23:59 23:59 Intake Total 8968.584 1439.367 3188.149 2929.518 Output Total 1972 2578 2149 1369 Balance -505.258 178.266 2943.149 1560.518 - Objective General Appearance: positive: Alert, Mild distress (Confused, occasionally tachypneic, occasional phlegm that is difficult to bring up and lodges in the back of her throat. Weak cough. Brought up 2 mucous plugs that were dark and grayish), Other (5 foot 5 inches elderly female who is 89.5 kg.) Eyes Bilateral: positive: PERRL, EOMI ENT: positive: No signs of dehydration, Other (Swallowing is impaired. Does not clear secretions well, and chokes a little bit on water) Neck: positive: No JVD. negative: Stiff neck Respiratory: positive: Rhonchi (Good air movement, but loud phlegmy breath sounds) Cardiovascular: positive: Regular rate & rhythm Abdomen: positive: Non-tender, No organomegaly, Nml bowel sounds, No distention Skin: positive: Warm, Dry Extremities: positive: Full ROM, Pedal edema Neurologic/Psychiatric: positive: CN's nml (2-12), Motor nml, Disoriented to place ("Where am I"), Disoriented to time (Has no recollection of what happened or what day it is) - Lab Results Fish Bones: 07/24/22 04:31 07/24/22 04:31 Other Labs: Lab Results x24hrs 07/24/22 07/24/22 07/24/22 Range/Units 12:37 07:45 04:31 WBC 10.8 (4.8-10.8) x10^3/uL RBC 3.21 L (4.20-5.40) 10^6/uL Hgb 11.8 L (12.0-16.0) g/dL Hct 34.7 L (37.0-47.0) % MCV 108.1 H (81.0-99.0) fL MCH 36.8 H (27.0-31.0) pg MCHC 34.0 (32.0-36.0) g/dL RDW 14.8 (12.0-15.0) % Plt Count 251 (130-450) 10^3/uL MPV 10.0 (7.9-10.8) fL Neut # (Auto) Not Reportable Lymph # (Auto) Not Reportable Burt # (Auto) Not Reportable Eos # (Auto) Not Reportable Baso # (Auto) Not Reportable Absolute Nucleated RBC Not Reportable Total Counted 100 Band Neuts % (Manual) 0 (0 - 10) % Abnorm Lymph % (Manual) 0 % Nucleated RBC % Not Reportable Neutrophils # (Manual) 8.2 H (1.5-6.6) 10^3/uL Lymphocytes # (Manual) 1.3 L (1.5-3.5) 10^3/uL Monocytes # (Manual) 0.5 (0.0-1.0) 10^3/uL Eosinophils # (Manual) 0.8 H (0-0.7) 10^3/uL Basophils # (Manual) 0.0 (0-0.1) 10^3/uL Differential Comment MANUAL DIFFERENTIAL WBC Morphology NORMAL APPEARANCE (NORMAL) Platelet Estimate NORMAL (130-450,000) (NORMAL) Platelet Morphology NORMAL APPEARANCE (NORMAL) RBC Morph Micro Appear NORMAL APPEARANCE (NORMAL) Bld Gas Analysis Time 0166 2802 Sample Site LEFT RADIAL RIGHT RADIAL ABG pH 7.38 7.50 H (7.35-7.45) ABG pCO2 52 H 41 (34-45) mmHg ABG pO2 72 L 67 L (80-100) mmHg ABG HCO3 29.9 H 31.0 H (22.0-26.0) mmol/L ABG Total CO2 31.5 H 32.1 H (21.0-29.0) MMOL/L ABG O2 Saturation 94 95 (94-98) % ABG Base Excess 3.7 H 7.0 H (-2.0-3.0) mmol/L Galo Test POSITIVE POSITIVE VBG pH (7.31-7.41) Ionized Calcium (1.15-1.33) mmol/L Respiration Rate 16 b/min O2 Delivery Device OXYMASK MECH TENT O2 Liters/Min 8.00 LPM Vent Mode ASSIST/CONTROL FiO2 60.00 PEEP 8 cmH2O Pressure Support Vent 14 cmH2O Sodium (135-145) mmol/L Potassium (3.5-5.0) mmol/L Chloride (101-111) mmol/L Carbon Dioxide (21-32) mmol/L Anion Gap (6-13) BUN (6-20) mg/dL Creatinine (0.4-1.0) mg/dL Estimated GFR (MDRD) (>89) Glucose (70-100) mg/dL Calcium (8.5-10.3) mg/dL Phosphorus (2.5-4.6) mg/dL Magnesium (1.7-2.8) mg/dL 07/24/22 07/24/22 07/23/22 Range/Units 04:31 04:31 22:15 WBC (4.8-10.8) x10^3/uL RBC (4.20-5.40) 10^6/uL Hgb (12.0-16.0) g/dL Hct (37.0-47.0) % MCV (81.0-99.0) fL MCH (27.0-31.0) pg MCHC (32.0-36.0) g/dL RDW (12.0-15.0) % Plt Count (130-450) 10^3/uL MPV (7.9-10.8) fL Neut # (Auto) Lymph # (Auto) Burt # (Auto) Eos # (Auto) Baso # (Auto) Absolute Nucleated RBC Total Counted Band Neuts % (Manual) (0 - 10) % Abnorm Lymph % (Manual) % Nucleated RBC % Neutrophils # (Manual) (1.5-6.6) 10^3/uL Lymphocytes # (Manual) (1.5-3.5) 10^3/uL Monocytes # (Manual) (0.0-1.0) 10^3/uL Eosinophils # (Manual) (0-0.7) 10^3/uL Basophils # (Manual) (0-0.1) 10^3/uL Differential Comment WBC Morphology (NORMAL) Platelet Estimate (NORMAL) Platelet Morphology (NORMAL) RBC Morph Micro Appear (NORMAL) Bld Gas Analysis Time Sample Site ABG pH (7.35-7.45) ABG pCO2 (34-45) mmHg ABG pO2 (80-100) mmHg ABG HCO3 (22.0-26.0) mmol/L ABG Total CO2 (21.0-29.0) MMOL/L ABG O2 Saturation (94-98) % ABG Base Excess (-2.0-3.0) mmol/L Galo Test VBG pH 7.463 H (7.31-7.41) Ionized Calcium 1.17 (1.15-1.33) mmol/L Respiration Rate b/min O2 Delivery Device O2 Liters/Min LPM Vent Mode FiO2 PEEP cmH2O Pressure Support Vent cmH2O Sodium 136 (135-145) mmol/L Potassium 4.0 4.1 (3.5-5.0) mmol/L Chloride 101 (101-111) mmol/L Carbon Dioxide 29 (21-32) mmol/L Anion Gap 6.0 (6-13) BUN 26 H (6-20) mg/dL Creatinine 0.6 (0.4-1.0) mg/dL Estimated GFR (MDRD) 97 (>89) Glucose 126 H (70-100) mg/dL Calcium 8.4 L (8.5-10.3) mg/dL Phosphorus 3.0 (2.5-4.6) mg/dL Magnesium 1.8 (1.7-2.8) mg/dL 07/23/22 Range/Units 16:06 WBC (4.8-10.8) x10^3/uL RBC (4.20-5.40) 10^6/uL Hgb (12.0-16.0) g/dL Hct (37.0-47.0) % MCV (81.0-99.0) fL MCH (27.0-31.0) pg MCHC (32.0-36.0) g/dL RDW (12.0-15.0) % Plt Count (130-450) 10^3/uL MPV (7.9-10.8) fL Neut # (Auto) Lymph # (Auto) Burt # (Auto) Eos # (Auto) Baso # (Auto) Absolute Nucleated RBC Total Counted Band Neuts % (Manual) (0 - 10) % Abnorm Lymph % (Manual) % Nucleated RBC % Neutrophils # (Manual) (1.5-6.6) 10^3/uL Lymphocytes # (Manual) (1.5-3.5) 10^3/uL Monocytes # (Manual) (0.0-1.0) 10^3/uL Eosinophils # (Manual) (0-0.7) 10^3/uL Basophils # (Manual) (0-0.1) 10^3/uL Differential Comment WBC Morphology (NORMAL) Platelet Estimate (NORMAL) Platelet Morphology (NORMAL) RBC Morph Micro Appear (NORMAL) Bld Gas Analysis Time Sample Site ABG pH (7.35-7.45) ABG pCO2 (34-45) mmHg ABG pO2 (80-100) mmHg ABG HCO3 (22.0-26.0) mmol/L ABG Total CO2 (21.0-29.0) MMOL/L ABG O2 Saturation (94-98) % ABG Base Excess (-2.0-3.0) mmol/L Galo Test VBG pH (7.31-7.41) Ionized Calcium (1.15-1.33) mmol/L Respiration Rate b/min O2 Delivery Device O2 Liters/Min LPM Vent Mode FiO2 PEEP cmH2O Pressure Support Vent cmH2O Sodium (135-145) mmol/L Potassium 3.9 (3.5-5.0) mmol/L Chloride (101-111) mmol/L Carbon Dioxide (21-32) mmol/L Anion Gap (6-13) BUN (6-20) mg/dL Creatinine (0.4-1.0) mg/dL Estimated GFR (MDRD) (>89) Glucose (70-100) mg/dL Calcium (8.5-10.3) mg/dL Phosphorus (2.5-4.6) mg/dL Magnesium (1.7-2.8) mg/dL - Other Results/Comments Other Results/Comments: Blood gas before extubation. Assist-control, FiO2 60%, PEEP of 8, pressure support of 14, rate of 14 had a pH of 7.5, PCO2 41, PO2 67, bicarb 31, positive base excess. I interpret this as I am over ventilating her and making her alkalotic. After extubation with oxy mask and 8 L she is a pH of 7.38, PCO2 52, PO2 72, base excess 3.7. I interpret these blood gases as a patient who has chronic COPD with hypercarbia and she may be returning to baseline status. Assessment/Plan - Problem List (1) Acute respiratory failure with hypoxia Impression: On 07/15, EMS arrived to find patient with a pulse ox of 78% on room air, which subsequently improved with 4L/min nasal cannula oxygen to 89-91%. Her O2 supplement was relatively stable as we started treating her COPD and pneumonia On 07/18, the patient went into alcohol withdrawal with agitation and delerium. Her O2 sat was 88% on 4L nasal cannula. She was then placed on an oxygen mask with 12L/min oxygen.After starting iv Ativan for treatimng alcohol withdrawal, the patient developed respiratory distress, became tachypneic (rate of 32), tachycardic (102), and was placed on a non-rebreather mask. Then an ABG showed severe respiratory acidosis. She was intubated. Chest x-ray was repeated, showed ET tube in the right place, persistent bilateral infiltrates and CHF persist Given the new CHF seen on CXRs, an Echo was ordered however we have no technician semiconductor development here until 07/23. Therefore on 07/20, I performed a limited bedside Echo (see separate note). The Echo showed normal LVEF, and mild diastolic dysfunction present. RV is dilated, but I could not measure her PA pressure. On 07/20 we started CPAP trials, 1 hour each shift, and her iv sedatives were turned off 30 minutes before CPAP. On 07/21 she did 3 CPAP trials of 1 hour, then could not follow directions to measure NIF and weaning parameters, so was put back on the vent at full settings. On 07/22, she did 2.5 hours of CPAP in a.m. But in afternoon, she failed after 10 min of CPAP with tachypnea and low TV, was put back on sedatives and vent support SIMV and PEEP 8. 07/23 she did hours of CPAP and was off fentanyl and ativan most of the day from this morning, and no tachypnea, no tachycardia, was able to but nif was only - 5, TV she generated 400 cc on her own. By 4 in the afternoon she was still really not responding enough to give us direction about extubation. Our fear was that we would extubate her later in the afternoon and then have to reintubate her. Today: Weaning her started again at 7:30 in the morning. All sedatives were removed. ABG at 745 showed a pH of 7.50, PCO2 41, PO2 67. Bicarb 31. Base excess +7.0. Rate was 16, pressure support of 14, PEEP of 8, FiO2 from 60%. By 8:30 in the morning she was awake, opening her eyes, intermittently responding to our voices in their request. But she was not consistent. We gave her 2 hours of CPAP trial with pressure support of 14. She was not tachycardic, O2 s ats were holding at an FiO2 of 45%. And I extubated her. Since extubation, she has burst of tachypnea. But no use of accessory muscles, sternocleidomastoid prominence not prominent. Her first question was "where am I". I examined her twice now. Repeat blood gas at 12:37 shows a pH of 7.38, P CO2 52, PO2 of 72, bicarb 29.9, base excess 3.7. She is on an oxy mask with 8 L/min. She is retaining now whereas she was over ventilated by me previously. Plan: Remain in ICU, Put her on BiPAP if necessary. Avoid intubation as much as possible. (2) On mechanically assisted ventilation resolved. Patient needed IV Ativan drip started several days ago, to manage severe alcohol withdrawal delirium, which made her hypoxic and hypercapnic. ABG showed pH 7.24, PCO2 67. Intubation was requested, and the ED provider came to the ICU and she was intubated after receiving sedatives that he ordered, on 07/18. Patient is now extubated as of today, this morning (3) Pneumonia Conclusion/Plan: Patient has right upper lobe pneumonia with mild left upper pneumonia. She took one dose of PO azithromycin 500 mg at home on 07/15. On 07/16, she was given azithromycin IV and started on ceftriaxone IV. July 23 was day #[address] chest w/ IV contrast from 07/16: Right upper lobe consolidation consistent with pneumonia. Mild pneumonia is also seen in the left upper lobe. Bilateral pleural effusions (small on the right and trace on the left). Mediastinal and hilar lymphadenopathy, most likely reactive in the setting of pneumonia. A 5 mm nodule found along the LEFT major fissure. Mild cardiomegaly with severe coronary atherosclerosis. Her blood cultures are negative to date. We have not been able to obtain a sputum sample to send for culture, even on the vent. Antibiotics stopped on July 23. Plan: Continue oxygen supplementation Nasotracheal suction ordered to help her clear her phlegm, and I am also hoping it will induce a strong cough reflex to bring up the phlegm. However respiratory therapy tells me that they tried that before. She had quite a bit of epistaxis. So I may have to stop Continue nebulizers Qualifiers: Pneumonia type: due to unspecified organism Laterality: bilateral Lung location: upper lobe of lung Qualified Code(s): J18.9 - Pneumonia, unspecified organism (4) COPD with exacerbation Conclusion/Plan: Patient has a history of COPD likely due to her extensive smoking history (56 years) and being a "chain smoker". At baseline, she does not require supplemental oxygen; however, she has needed at least 4L/min of oxygen to keep her O2 sat in the low 90%. Initially, nebulized bronchodilator treatments resulted in significant improvement in her ability to breathe, but is still very short of breath when walking. 07/18, her breathing worsened due to IV Ativan that was needed for treating her acute alcohol withdrawal. She was then placed on an oxygen mask with 12L/min oxygen. She then needed to be intubated Plan: Continue bronchodilator nebulizer treatments Continue supplemental oxygen with NC. If respiratory status deteriorates again, she is still a full code, and she will need to be reintubated. However I would like to give her BiPAP before we do that. (5) Alcohol withdrawal delirium Impression: Per the previous hospitalist on service: The night of 07/16, the patient reported visual hallucinations of lions and tigers in her room. Initially we believed this was a result of hyponatremia or from iatrogenic hyperthyroidism (excessive Synthroid, based on very low TSH result). Throughout the night of 07/17 until morning of 07/18, the patient believed she was on a ship going to [place] and was very anxious. She even sent multiple lengthy texts to her son about how she was on a boat. Furthermore, she also assigned nicknames to all the nursing staff, such as 'cinda rodriguez', 'the head master', and 'tiny flower'. I had a suspicion that she was going through alcohol withdrawal, based on having a high MCV, and that it is 48 houyrs since admission, I ordered a CIWA score which was 14. Initially, the patient did not report alcohol use. However, after speaking with her son Ha at bedside 07/18, he reported that she has been mixing cheap boxed wine and more expensive bottled wine in an old orange juice gallon container. She then mixes this concoction with toy sophie. She drinks this from noon until she goes to sleep at about 2200. Ha estimates that she drinks 1.5L of wine daily. The patient herself has not admitted to her alcohol habits and was even embarrassed to admit her 50+ years smoking habits on this admission. The patient continued to be confused and agitated. She was not speaking coherently and was not oriented to place or time. I ordered IV Ativan 2 mg x1 and a STAT head CT to rule out CVA. Head CT found: No acute intracranial abnormality Patient was transferred to the ICU after returning from CT. CIWA protocal ordered, with iv Ativan drip. On the Ativan drip, she was less combative but became more hypopneic and a blood gas was ordered (see #2 #3) Thiamine supplementation started. Plan: Now that she is extubated, and I need to make sure her sensorium stays as alert as possible, I have stopped fentanyl drip, Ativan drip. I have switched her over to oral thiamine and vitamin. (6) Cor Pulmonale A very dilated RV was seen on a limited bedside Echo, which was done 07/21. This is very likely from her longstanding smoking, and COPD. Plan: Continue with present meds and management. When she is extubated, we will discuss managing her COPD better, quitting smoking and that she is a candidate to attend pulmonary rehab once she stabilizes (7) Hyponatremia Conclusion/Plan: This was likely hypovolemic hyponatremia due to not eating much in the last few weeks and also alcohol abuse. Patient reports she has not been hungry because of grief after her . On admission, she was hyponatremic and her sodium level was 123. On 07/17, it has improved to 128. When I went to visit with the patient on 07/17, she did not remember that we had a lengthy conversation yesterday about her late . Initially, I thought this was due to her low sodium levels yesterday. 07/18, her BNP came back high at 229. Her sodium increased to 132. A CXR was done that showed volume overload We stopped IV saline, and started Lasix No more restriction of free water needed Sodium has been normal since July 19. Slowly and steadily climbing. She went from 135 on that day and is 136 today. Plan: Stop NG tube feeds. Start a regular diet once we do a swallow eval with speech therapy. Follow CMP and Mg intermittently Continue with ICU electrolyte protocol. Increase IV fluids to a total of 85 cc an hour if she cannot drink enough water (8) Incidental lung nodule, > 3mm and < 8mm Conclusion/Plan: Though chest CT was initially ordered by the ER to rule out rib fractures from her fall, several lung findings were noted. These are especially concerning given the patient's extensive smoking history (56 years) Chest CT w/contrast from 07/16 found a 5 mm nodule along the LEFT major fissure. In addition, there was also mediastinal and hilar adenopathy, a 1.8 cm right paratracheal lymph node, a 1.3 cm clustered AP window lymph node, a 1.3 cm right hilar lymph node, and a 1 cm left hilar lymph node NOTE- Initial radiology report described a 5 mm right-sided nodule, however, it has subsequently been corrected to LEFT-sided nodule. These findings were discussed with the patient, and she expressed understanding. The next morning on 07/17, the nurse reported that the patient was very anxious and worrying about what will happen to her disabled son when she passes away. Plan: Follow up CT recommended in 6-12 months. Then, again at 18-24 months if no change. (9) Iatrogenic hyperthyroidism Assessment/Plan: Patient has a history of hypothyroidism for which she takes levothyroxine 125 mcg at home. She has not been on this medication during her stay here. On 07/17, we discovered that her TSH was <0.08. I believe the patient is over treating herself with her levothyroxine, especially now that she is down 30 pounds. Her current hyperthyroidism could be contributing to many of her symptoms including anxiety, brief episode of PSVT, dyspnea, weight loss, and confusion. Plan: Continue the decreased Levothyroxine dose of 112 mcg (10) Tobacco abuse disorder Conclusion/Plan: She has been smoking since she was 21 years old and has never been able to quit despite multiple attempts, including hypnotherapy. She has decreased from 3 packs daily to ~8 cigarettes daily over time. She was very embarrassed to speak about her smoking habits in front of her family and even became tearful when speaking about it. On 07/17, she described herself as being a "chain smoker". She also admitted to us that she has been smoking more since her to help manage her grief. Plan: Nicotine patch daily. I have weaned down the 14 mg patch down to 7 mg, several days ago (11) PSVT (paroxysmal supraventricular tachycardia) Conclusion/Plan: RESOLVED On 07/16 at approximately 13:45, patient had a brief run of PSVT. I suspect this was caused by her current lung disease, however I will also check for hyperthyroidism. On 07/17, her TSH was <0.08, indicating overtreatment with her Levothyroxine. Plan: Monitor on telemetry
[2022-07-25 04:52] LABS: BASOPHILS # (AUTO) 0.2 10^3/uL (0.0-0.1); BASOPHILS % (AUTO) 1.1 %; EOSINOPHILS # (AUTO) 0.1 10^3/uL (0.0-0.7); EOSINOPHILS % (AUTO) 0.8 %; HCT - HEMATOCRIT 40.1 % (37.0-47.0); HGB - HEMOGLOBIN 13.8 g/dL (12.0-16.0); LYMPHOCYTES % (AUTO) 7.4 %; MEAN CORPUSCULAR HEMOGLOBIN 37.2 pg (27.0-31.0); MEAN CORPUSCULAR HGB CONC 34.4 g/dL (32.0-36.0); MEAN CORPUSCULAR VOLUME 108.1 fL (81.0-99.0); MONOCYTES # (AUTO) 0.9 10^3/uL (0.0-1.0); MONOCYTES % (AUTO) 6.5 %; NEUTROPHILS # (AUTO) 11.4 10^3/uL (1.5-6.6); PLT - PLATELET COUNT 338 10^3/uL (130-450); RED BLOOD COUNT 3.71 10^6/uL (4.20-5.40); RED CELL DISTRIBUTION WIDTH 14.7 % (12.0-15.0); WHITE BLOOD COUNT 13.9 x10^3/uL (4.8-10.8)
[2022-07-25 04:53] LABS: CALCIUM, IONIZED 1.12 mmol/L (1.15-1.33); VBG PH 7.36 (7.31-7.41)
[2022-07-25 05:01] LABS: CALCIUM 8.5 mg/dL (8.5-10.3); CREATININE 0.5 mg/dL (0.4-1.0); MAGNESIUM 1.9 mg/dL (1.7-2.8); PHOSPHORUS 4.4 mg/dL (2.5-4.6); POTASSIUM 3.9 mmol/L (3.5-5.0)
[2022-07-25] MEDS: FUROSEMIDE 20 MG/2 ML VIAL IVP SCH ×2 (06:07→15:45)
[2022-07-25] MEDS: SODIUM CHLORIDE 0.9% 500 ML IV PRN ×2 (06:07→14:49)
[2022-07-25] MEDS: SODIUM CHLORIDE FLUSH 0.9% 10 ML SYRINGE IVP PRN (06:08)
[2022-07-25] MEDS: POTASSIUM CHLOR 10 MEQ/100 ML 10 MEQ/100 ML BAG IV SCH ×2 (06:16→07:40)
[2022-07-25] MEDS: ALBUTEROL NEB 2.5 MG/3 ML INH SCH ×6 (06:45→23:31)
--- NOTE | 2022-07-25 07:13 | PROVIDER PROGRESS NOTE ---
Subjective - Prog Note Date Prog Note Date: 07/25/22 Prog Note Time: 16:42 - Subjective Subjective: We extubated her yesterday. Between yesterday morning and this morning, she appears to be worsening with regards to attention, alertness. She is becoming more and more lethargic. At times unresponsive even with a sternal rub. But then she will wake up. She has a snoring apneic type pattern. Copious secretions that she cannot bring up because of weak cough. Respiratory therapy feels that cannot do nasotracheal suction because it induces nosebleeds. We can do oral suction but it does not seem to help very much. In evaluating her blood gases she was a PCO2 of 41 yesterday morning. After extubation PCO2 was 52. Today PCO2 is 69. pH is gone from 7.5-7.38 and is 7.33 this morning. She is on oxy mask, 8 L. Nursing can occasionally prompt her to wake up and answer yes no. When she really responds as when we tell her that she has to breathe better and take deep breaths or the tube will have to go back down. Her eyes were open wide and she will gasp for air and say "do not do that to me anymore". Several times she has told us that she does not want the tube down. Please see separate dictation for advance care planning conversation with her 2 sons. Current Medications - Current Medications Current Medications: Active Medications Albuterol (Albuterol Neb 2.5 Mg/3 Ml) 2.5 mg INH RTQ4H PRN PRN Reason: Wheezing Albuterol (Albuterol Neb 2.5 Mg/3 Ml) 2.5 mg INH RTQID [facility] Last Admin: 07/25/22 15:26 Dose: 2.5 mg Chlorhexidine Gluconate (Chlorhexidine Gluconate 15 Ml Udc) 15 ml PO BID [facility] Last Admin: 07/25/22 09:08 Dose: Not Given Enoxaparin Sodium (Enoxaparin 40 Mg/0.4 Ml Syringe) 40 mg SUBQ DAILY [facility] Last Admin: 07/25/22 09:07 Dose: 40 mg Famotidine (Famotidine 20 Mg/2 Ml Vial) 20 mg IVP BID [facility] Last Admin: 07/25/22 09:07 Dose: 20 mg Folic Acid (Folic Acid 1 Mg Tablet) 1 mg PO DAILY [facility] Last Admin: 07/25/22 09:08 Dose: Not Given Furosemide (Furosemide 20 Mg/2 Ml Vial) 20 mg IVP BIDDIURETIC [facility] Last Admin: 07/25/22 15:45 Dose: 20 mg Acetaminophen (Acetaminophen) 1,000 mg in 100 mls @ 400 mls/hr IV Q6HR PRN PRN Reason: Pain or Fever > 38C (100.4F) Last Infusion: 07/21/22 21:23 Dose: Infused Sodium Chloride (Normal Saline 0.9%) 500 mls @ 85 mls/hr IV Q24H PRN PRN Reason: TKO RATE Last Admin: 07/25/22 14:49 Dose: 85 mls/hr Multi-Ingredient Ointment (Zinc Oxide 20% Oint 30 Gm Tube) 1 applic TOP PRN PRN PRN Reason: Skin Care Last Admin: 07/23/22 21:19 Dose: 1 applic Nicotine (Nicotine 7 Mg Patch) 1 patch TOP DAILY [facility] Last Admin: 07/25/22 09:07 Dose: 1 patch Ondansetron HCl (Ondansetron 4 Mg/2 Ml Vial) 4 mg IVP Q6HR PRN PRN Reason: Nausea / Vomiting Polyethylene Glycol (Polyethylene Glycol 3350 17 Gm Packet) 17 gm PO DAILY [facility] Last Admin: 07/25/22 09:08 Dose: Not Given Multivit/Folic Acid/Iron ( Vitamin Tablet) 1 tab PO DAILYWM [facility] Last Admin: 07/25/22 09:08 Dose: Not Given Sodium Chloride (Sodium Chloride Flush 0.9% 10 Ml Syringe) 10 ml IVP PRN PRN PRN Reason: NEEDED PER PROVIDER ORDERS Last Admin: 07/25/22 06:08 Dose: 10 ml Sodium Chloride (Sodium Chloride Flush 0.9% 10 Ml Syringe) 10 ml IVP 0100,0900,1700 [facility] Last Admin: 07/25/22 09:08 Dose: 10 ml Thiamine HCl (Thiamine 100 Mg Tablet) 100 mg PO DAILY [facility] Last Admin: 07/25/22 09:09 Dose: Not Given Aspirin [Adult Low Dose Aspirin EC] 81 mg PO DAILY 05/27/19 clonazePAM [Clonazepam] 0.5 mg PO DAILY PRN 05/27/19 Cetirizine [ZyrTEC] 10 mg PO DAILY PRN 07/16/22 Cholecalciferol (Vitamin D3) [Vitamin D3] 100 mcg PO DAILY 07/16/22 Estradiol [Estrace] 1 g VG DAILY 07/16/22 Ibuprofen [Motrin] 400 mg PO TID PRN 07/16/22 Ipratropium/Albuterol [Combivent Respimat] 1 puffs INH Q6H PRN 07/16/22 Levothyroxine [Synthroid] 125 mcg PO QDAC 07/16/22 amLODIPine [Norvasc] 5 mg PO DAILY 07/16/22 Objective - Vital Signs/Intake & Output Reviewed Vital Signs: Yes Vital Signs: Vital Signs x48h Temp Pulse Resp BP Pulse Ox O2 Flow Rate 07/25/22 07:11 8 07/25/22 07:00 36.5 C 88 30 H 153/78 H 97 8 07/25/22 06:00 36.5 C 102 H 37 H 169/94 H 93 12 07/25/22 05:00 36.5 C 91 32 H 162/87 H 93 12 07/25/22 04:00 36.5 C 91 34 H 163/88 H 90 L 12 07/25/22 03:00 36.6 C 94 25 H 151/85 H 92 12 07/25/22 02:00 36.8 C 93 28 H 153/85 H 90 L 12 07/25/22 01:00 36.8 C 101 H 30 H 156/84 H 89 L 12 07/25/22 00:00 36.6 C 97 27 H 149/77 H 87 L 12 Intake & Output: Intake & Output 07/22/22 07/23/22 07/24/22 07/25/22 23:59 23:59 23:59 23:59 Intake Total 3176.367 3188.149 2929.518 375.667 Output Total 2578 2149 2966 1255 Balance 713.126 0138.149 -36.482 -879.333 - Objective General Appearance: positive: Moderate distress (Gurgling, apneic respiration, snoring respirations), Lethargic (Or at times unresponsive even to sternal rub) Eyes Bilateral: positive: PERRL, EOMI ENT: positive: No signs of dehydration Neck: positive: No JVD. negative: Stiff neck Respiratory: positive: Rales, Rhonchi, Other (Respiratory effort is so weak that she is not moving abdominal muscles or chest wall muscles.But respirations are tachypneic.) Cardiovascular: positive: Regular rate & rhythm Abdomen: positive: Non-tender, No organomegaly, Nml bowel sounds, Other (Obese protuberant abdomen. Bowel movement was July 23.). negative: Guarding, Rebound Skin: positive: Warm, Dry Extremities: positive: Full ROM, Pedal edema (Minimal) Neurologic/Psychiatric: positive: CN's nml (2-12), Motor nml, Disoriented to place (Her first treatment yesterday was "where am I invited you do that to me"), Disoriented to time, Slurred/abnml speech (Garbled.), Other (She does recognize her son Alan) - Lab Results Fish Bones: 07/25/22 04:26 07/25/22 04:26 Other Labs: Lab Results x24hrs 07/25/22 07/25/22 07/25/22 Range/Units 04:26 04:26 04:26 WBC 13.9 H (4.8-10.8) x10^3/uL RBC 3.71 L (4.20-5.40) 10^6/uL Hgb 13.8 (12.0-16.0) g/dL Hct 40.1 (37.0-47.0) % MCV 108.1 H (81.0-99.0) fL MCH 37.2 H (27.0-31.0) pg MCHC 34.4 (32.0-36.0) g/dL RDW 14.7 (12.0-15.0) % Plt Count 338 (130-450) 10^3/uL MPV 10.0 (7.9-10.8) fL Neut # (Auto) 11.4 H (1.5-6.6) 10^3/uL Lymph # (Auto) 1.0 L (1.5-3.5) 10^3/uL [place] # (Auto) 0.9 (0.0-1.0) 10^3/uL Eos # (Auto) 0.1 (0.0-0.7) 10^3/uL Baso # (Auto) 0.2 H (0.0-0.1) 10^3/uL Absolute Nucleated RBC 0.00 x10^3/uL Nucleated RBC % 0.0 /100WBC Bld Gas Analysis Time Sample Site ABG pH (7.35-7.45) ABG pCO2 (34-45) mmHg ABG pO2 (80-100) mmHg ABG HCO3 (22.0-26.0) mmol/L ABG Total CO2 (21.0-29.0) MMOL/L ABG O2 Saturation (94-98) % ABG Base Excess (-2.0-3.0) mmol/L Galo Test VBG pH 7.360 (7.31-7.41) Ionized Calcium 1.12 L (1.15-1.33) mmol/L Respiration Rate b/min O2 Delivery Device O2 Liters/Min LPM Vent Mode FiO2 PEEP cmH2O Pressure Support Vent cmH2O Sodium 138 (135-145) mmol/L Potassium 3.9 (3.5-5.0) mmol/L Chloride 97 L (101-111) mmol/L Carbon Dioxide 32 (21-32) mmol/L Anion Gap 9.0 (6-13) BUN 19 (6-20) mg/dL Creatinine 0.5 (0.4-1.0) mg/dL Estimated GFR (MDRD) 120 (>89) Glucose 111 H (70-100) mg/dL Calcium 8.5 (8.5-10.3) mg/dL Phosphorus 4.4 (2.5-4.6) mg/dL Magnesium 1.9 (1.7-2.8) mg/dL 07/24/22 07/24/22 07/24/22 Range/Units 16:04 12:37 07:45 WBC (4.8-10.8) x10^3/uL RBC (4.20-5.40) 10^6/uL Hgb (12.0-16.0) g/dL Hct (37.0-47.0) % MCV (81.0-99.0) fL MCH (27.0-31.0) pg MCHC (32.0-36.0) g/dL RDW (12.0-15.0) % Plt Count (130-450) 10^3/uL MPV (7.9-10.8) fL Neut # (Auto) (1.5-6.6) 10^3/uL Lymph # (Auto) (1.5-3.5) 10^3/uL [place] # (Auto) (0.0-1.0) 10^3/uL Eos # (Auto) (0.0-0.7) 10^3/uL Baso # (Auto) (0.0-0.1) 10^3/uL Absolute Nucleated RBC x10^3/uL Nucleated RBC % /100WBC Bld Gas Analysis Time 1237 0745 Sample Site LEFT RADIAL RIGHT RADIAL ABG pH 7.38 7.50 H (7.35-7.45) ABG pCO2 52 H 41 (34-45) mmHg ABG pO2 72 L 67 L (80-100) mmHg ABG HCO3 29.9 H 31.0 H (22.0-26.0) mmol/L ABG Total CO2 31.5 H 32.1 H (21.0-29.0) MMOL/L ABG O2 Saturation 94 95 (94-98) % ABG Base Excess 3.7 H 7.0 H (-2.0-3.0) mmol/L Galo Test POSITIVE POSITIVE VBG pH (7.31-7.41) Ionized Calcium (1.15-1.33) mmol/L Respiration Rate 16 b/min O2 Delivery Device OXYMASK MECH TENT O2 Liters/Min 8.00 LPM Vent Mode ASSIST/CONTROL FiO2 60.00 PEEP 8 cmH2O Pressure Support Vent 14 cmH2O Sodium (135-145) mmol/L Potassium (3.5-5.0) mmol/L Chloride (101-111) mmol/L Carbon Dioxide (21-32) mmol/L Anion Gap (6-13) BUN (6-20) mg/dL Creatinine (0.4-1.0) mg/dL Estimated GFR (MDRD) (>89) Glucose (70-100) mg/dL Calcium (8.5-10.3) mg/dL Phosphorus (2.5-4.6) mg/dL Magnesium 2.0 (1.7-2.8) mg/dL Assessment/Plan - Problem List (1) Alcohol withdrawal delirium Impression: Per the previous hospitalist on service: The night of 07/16, the patient reported visual hallucinations of lions and tigers in her room. Initially we believed this was a result of hyponatremia or from iatrogenic hyperthyroidism (excessive Synthroid, based on very low TSH result). Throughout the night of 07/17 until morning of 07/18, the patient believed she was on a ship going to [place] and was very anxious. She even sent multiple lengthy texts to her son about how she was on a boat. Furthermore, she also assigned nicknames to all the nursing staff, such as 'cinda fairy', 'the head master', and 'tiny flower'. I had a suspicion that she was going through alcohol withdrawal, based on having a high MCV, and that it is 48 houyrs since admission, I ordered a CIWA score which was 14. Initially, the patient did not report alcohol use. However, after speaking with her son Ha at bedside 07/18, he reported that she has been mixing cheap boxed wine and more expensive bottled wine in an old orange juice gallon container. She then mixes this concoction with toy sophie. She drinks this from noon until she goes to sleep at about 2200. Ha estimates that she drinks 1.5L of wine daily. The patient herself has not admitted to her alcohol habits and was even embarrassed to admit her 50+ years smoking habits on this admission. The patient continued to be confused and agitated. She was not speaking coheren tly and was not oriented to place or time. I ordered IV Ativan 2 mg x1 and a STAT head CT to rule out CVA. Head CT found: No acute intracranial abnormality Patient was transferred to the ICU after returning from CT. CIWA protocal ordered, with iv Ativan drip. On the Ativan drip, she was less combative but became more hypopneic and a blood gas was ordered (see #2 #3) Thiamine supplementation started. Her delirium resulted in decompensation of COPD in the face of pneumonia. This resulted in acute respiratory failure with hypoxia and she needed to be intubated. She has now been extubated since July 24. This morning delirium is the prominent manifestation. She is confused, wants to go home, keeps on insisting she wants to get out of bed. . Overnight she has problems with ob structive sleep apnea and the oxy mask went from 8 L, oxygen is at 12 L of oxygen. As of this morning we brought her down to 8 L of oxygen again. O2 sats are 93 to 97% with this. However as the morning has progressed she has become warm more obtunded. Less and less responsive. Advance care planning conversation held with sonAnali Phillips asked me to please defer to his brother and he since and he is agent #1. And he then said that he is overwhelmed, and he will defer to Alan's decision. Plan: Part of her delirium at this point in time still may be alcohol withdrawal. But this patient's prognosis is poor, and after advance care planning conversation we are changing CODE STATUS to DO NOT RESUSCITATE. DO NOT INTUBATE. I will focus on keeping her comfortable with sublingual Ativan as needed (2) Acute respiratory failure with hypoxia Impression: On 07/15, EMS arrived to find patient with a pulse ox of 78% on room air, which subsequently improved with 4L/min nasal cannula oxygen to 89-91%. Her O2 supplement was relatively stable as we started treating her COPD and pneumonia On 07/18, the patient went into alcohol withdrawal with agitation and delerium. Her O2 sat was 88% on 4L nasal cannula. She was then placed on an oxygen mask with 12L/min oxygen.After starting iv Ativan for treatimng alcohol withdrawal, the patient developed respiratory distress, became tachypneic (rate of 32), tachycardic (102), and was placed on a non-rebreather mask. Then an ABG showed severe respiratory acidosis. She was intubated. Chest x-ray was repeated, showed ET tube in the right place, persistent bilateral infiltrates and CHF persist Given the new CHF seen on CXRs, an Echo was ordered however we have no semiconductor equipment technician here until 07/23. Therefore on 07/20, I performed a limited bedside Echo (see separate note). The Echo showed normal LVEF, and mild diastolic dysfunction present. RV is dilated, but I could not measure her PA pressure. On 07/20 we started CPAP trials, 1 hour each shift, and her iv sedatives were turned off 30 minutes before CPAP. On 07/21 she did 3 CPAP trials of 1 hour, then could not follow directions to measure NIF and weaning parameters, so was put back on the vent at full settings. On 07/22, she did 2.5 hours of CPAP in a.m. But in afternoon, she failed after 10 min of CPAP with tachypnea and low TV, was put back on sedatives and vent support SIMV and PEEP 8. 07/23 she did hours of CPAP and was off fentanyl and ativan most of the day from this morning, and no tachypnea, no tachycardia, was able to but nif was only - 5, TV she generated 400 cc on her own. By 4 in the afternoon she was still really not responding enough to give us direction about extubation. Our fear was that we would extubate her later in the afternoon and then have to reintubate her. 07/24; Weaning her started again at 7:30 in the morning. All sedatives were removed. ABG at 745 showed a pH of 7.50, PCO2 41, PO2 67. Bicarb 31. Base excess +7.0. Rate was 16, pressure support of 14, PEEP of 8, FiO2 from 60%. By 8:30 in the morning she was awake, opening her eyes, intermittently responding to our voices in their request. But she was not consistent. We gave her 2 hours of CPAP trial with pressure support of 14. She was not tachycardic, O2 sats were holding at an FiO2 of 45%. And I extubated her. 07/25: She is failing today. PCO2 is climbing, blood gas is getting more acidotic. Her sons have decided not to reintubate her. Plan: No BiPAP. No reintubation. Focus on comfort measures. Ativan 1 mg sublingual every 2 hours as needed for agitation and discomfort Roxanol 10 mg sublingual every 2 hours as needed for pain Robinul for secretions Tylenol/Ofimerv 1000 mg IV every 6 hours as needed fever, pain (2) Pneumonia Conclusion/Plan: Patient has right upper lobe pneumonia with mild left upper pneumonia. She took one dose of PO azithromycin 500 mg at home on 07/15. On 07/16, she was given azithro mycin IV and started on ceftriaxone IV. July 23 was day #[address] chest w/ IV contrast from 07/16: Right upper lobe consolidation consistent with pneumonia. Mild pneumonia is also seen in the left upper lobe. Bilateral pleural effusions (small on the right and trace on the left). Mediastinal and hilar lymphadenopathy, most likely reactive in the setting of pneumonia. A 5 mm nodule found along the LEFT major fissure. Mild cardiomegaly with severe coronary atherosclerosis. Her blood cultures are negative to date. We have not been able to obtain a sputum sample to send for culture, even on the vent. Antibiotics stopped on July 23. In spite of completing antibiotics, intubation for suction, benzodiazepine for alcohol withdrawal, she has not been able to turn the corner. This morning she has been steadily worsening to this afternoon. Plan: Comfort measures. Qualifiers: Pneumonia type: due to unspecified organism Laterality: bilateral Lung location: upper lobe of lung Qualified Code(s): J18.9 - Pneumonia, unspecified organism (3) COPD with exacerbation Conclusion/Plan: Patient has a history of COPD likely due to her extensive smoking history (56 years) and being a "chain smoker". At baseline, she does not require supplemen paula oxygen; however, she has needed at least 4L/min of oxygen to keep her O2 sat in the low 90%. Initially, nebulized bronchodilator treatments resulted in significant improvement in her ability to breathe, but is still very short of breath when walking. 07/18, her breathing worsened due to IV Ativan that was needed for treating her acute alcohol withdrawal. She was then placed on an oxygen mask with 12L/min oxygen. She then needed to be intubated Plan: Still on oxygen for comfort. Unable to do NT suction to get phlegm. No reintubation after ACP discussion. (4) Cor Pulmonale A very dilated RV was seen on a limited bedside Echo, which was done 07/21. This is very likely from her longstanding smoking, and COPD. Plan: She did receive some Lasix this morning to see if this could help her. (5) Hyponatremia Conclusion/Plan: This was likely hypovolemic hyponatremia due to not eating much in the last few weeks and also alcohol abuse. Patient reports she has not been hungry because of grief after her . On admission, she was hyponatremic and her sodium level was 123. On 07/17, it has improved to 128. When I went to visit with the patient on 07/17, she did not remember that we had a lengthy conversation yesterday about her late . Initially, I thought this was due to her low sodium levels yesterday. 07/18, her BNP came back high at 229. Her sodium increased to 132. A CXR was done that showed volume overload We stopped IV saline, and started Lasix No more restriction of free water needed Sodium has been normal since July 19. Slowly and steadily climbing. She went from 135 on that day and is 136 today. Plan: Stop NG tube feeds. Start a regular diet once we do a swallow eval with speech therapy. Follow CMP and Mg intermittently Continue with ICU electrolyte protocol. Increase IV fluids to a total of 85 cc an hour if she cannot drink enough water (6) Incidental lung nodule, > 3mm and < 8mm Conclusion/Plan: Though chest CT was initially ordered by the ER to rule out rib fractures from her fall, several lung findings were noted. These are especially concerning given the patient's extensive smoking history (56 years) Chest CT w/contrast from 07/16 found a 5 mm nodule along the LEFT major fissure. In addition, there was also mediastinal and hilar adenopathy, a 1.8 cm right paratracheal lymph node, a 1.3 cm clustered AP window lymph node, a 1.3 cm right hilar lymph node, and a 1 cm left hilar lymph node NOTE- Initial radiology report described a 5 mm right-sided nodule, however, it has subsequently been corrected to LEFT-sided nodule. These findings were discussed with the patient, and she expressed understanding. The next morning on 07/17, the nurse reported that the patient was very anxious and worrying about what will happen to her disabled son when she passes away. Plan: Follow up CT recommended in 6-12 months. Then, again at 18-24 months if no change. (7) Iatrogenic hyperthyroidism Assessment/Plan: Patient has a history of hypothyroidism for which she takes levothyroxine 125 mcg at home. She has not been on this medication during her stay here. On 07/17, we discovered that her TSH was <0.08. I believe the patient is over treating herself with her levothyroxine, especially now that she is down 30 pounds. Her current hyperthyroidism could be contributing to many of her symptoms including anxiety, brief episode of PSVT, dyspnea, weight loss, and confusion. Plan: Continue the decreased Levothyroxine dose of 112 mcg (8) Tobacco abuse disorder Conclusion/Plan: She has been smoking since she was 21 years old and has never been able to quit despite multiple attempts, including hypnotherapy. She has decreased from 3 packs daily to ~8 cigarettes daily over time. She was very embarrassed to speak about her smoking habits in front of her family and even became tearful when speaking about it. On 07/17, she described herself as being a "chain smoker". She also admitted to us that she has been smoking more since her to help manage her grief. Plan: Nicotine patch daily. I have weaned down the 14 mg patch down to 7 mg, several days ago (9) PSVT (paroxysmal supraventricular tachycardia) Conclusion/Plan: RESOLVED On 07/16 at approximately 13:45, patient had a brief run of PSVT. I suspect this was caused by her current lung disease, however I will also check for hyperthyroidism. On 07/17, her TSH was <0.08, indicating overtreatment with her Levothyroxine. Plan: Monitor on telemetry
[2022-07-25 07:39] LABS: ABG PH 7.33 (7.35-7.45)
[2022-07-25 07:40] LABS: ABG BASE EXCESS 6.7 mmol/L (-2.0-3.0); ABG HCO3 35.4 mmol/L (22.0-26.0); ABG OXYGEN SATURATION 92 % (94-98); ABG PO2 67 mmHg (80-100); ABG TCO2 37.6 MMOL/L (21.0-29.0); ALLEN TEST POSITIVE
[2022-07-25 07:43] LABS: ABG PCO2 69 mmHg (34-45)
[2022-07-25] MEDS ORDERED: PRENATAL VITAMIN TABLET PO SCH (08:00)
[2022-07-25] MEDS ORDERED: THIAMINE 100 MG TABLET PO SCH (09:00)
[2022-07-25] MEDS: FAMOTIDINE 20 MG/2 ML VIAL IVP SCH (09:07)
[2022-07-25] MEDS: ENOXAPARIN 40 MG/0.4 ML SYRINGE SUBQ SCH (09:07)
[2022-07-25] MEDS: NICOTINE 7 MG PATCH TOP SCH (09:07)
[2022-07-25] MEDS: SODIUM CHLORIDE FLUSH 0.9% 10 ML SYRINGE IVP SCH ×2 (09:08→17:33)
[2022-07-25] MEDS: polyethylene glycoL 3350 17 GM PACKET PO SCH (09:08)
[2022-07-25] MEDS: CHLORHEXIDINE GLUCONATE 15 ML UDC PO SCH ×2 (09:08→21:51)
[2022-07-25] MEDS: FOLIC ACID 1 MG TABLET PO SCH (09:08)
[2022-07-25] MEDS ORDERED: ATROPINE 1% OPHTH DROPS 2 ML SL PRN (16:55)
[2022-07-25] MEDS ORDERED: MORPHINE SOL 10 MG/0.5 ML ORAL SYRINGE PO PRN (16:56)
--- NOTE | 2022-07-25 17:12 | ADVANCE CARE PLANNING NOTE ---
Advance Care Planning - Planning Encounter Date: 07/25/22 Time: 11:00 Purpose: advise sons of change in status Parties in Attendance: alan at the bedside and Ha on the phone, patient in bed, and hospitalist Decisional Capacity of the Patient: not able to contribute, she is hypercarbic, waxing and waning mentation - Diagnosis for Encounter (2) Acute respiratory failure with hypoxia Summary: She went into respiratory failure from a combination of factors. This includes COPD with exacerbation, pneumonia, and acute alcohol withdrawal with delirium. She has been intubated. It was a difficult extubation that was protracted over 2 to 3 days. Between yesterday and today she has gone in the incorrect direction. She is becoming more more hypercarbic, and obtunded. I have asked her sons to guide me about whether we are going to reintubate - Encounter Subjective/Patient's Story: She is a 77-year-old female who has problems with alcohol abuse. She lived in [place] near her son Alan. She lives with her . In the last 2 years her was getting more more demented. [place] than the intended and that they became stranded on the wheeler during quarantine. Once quarantine was lifted she realized that she needed more more help with her demented . He was hospitalized here with failure to thrive a few weeks ago. Did not really recover and was discharged and eventually . She has not taken it well and has been drinking steadily, not taking care of her self. This resulted in pneumonia. Then she had to stop drinking. Alcohol withdrawal ensued. COPD kicked in and she needed to be intubated. There is an advanced directive. The patient does not want to be resuscitated if she has a terminal illness, or if negatives outweigh the positives with regards to treatment of a prolonged end- stage illness. A previous POLST form was filled out by ENT who is the first agent on the advanced directive. And he put full code, and all measures. Now that she has been extubated and is deteriorating again and I am faced with reintubation I have spoken to Alan at the bedside. He gave me the phone to speak to Ha. And he is overwhelmed. He says that he feels that mom should be given a chance. I said we were willing to do that but I also went on to explain and describe a successful outcome. If she were to be intubated, we would most likely need to transition to tracheostomy because she has been intubated for quite some time. If she then recovered from that she would be transferred to a long-term care facility that took care of tracheostomy patients. From there she would be rehab and hopefully regain enough strength and nutrition to return to home. But if she return to home it would be to his home and I asked if he would be the one taking care of her or if she would be placed in a care home or if private duty caregivers would be hired while she lived with them. And he stated that they do not have the finances to take care of their mom with private duty caregivers nor do they have the finances to pay for [facility] facility care. Which left the only option for her to be home with him with the help of his brother, to take care of their mother. And he said that he has his own mental and health issues and he would not be able to take care of her. Because he was overwhelmed, he then turned the phone over to his brother Alan and asked Alan to make that decision. Alan said that he has thought long and hard about this. He knew that his mother would never want to have her health status deteriorate to the point where she was going to be dependent on people for activities of daily living much less deteriorate to the point that she would be on a vent with a tracheostomy. He was very firm and stating that his mom would never want this. With that in mind he requested that she be comfort measures. Do not reintubate. I went over this on the phone with Ha and margairta and he was agreeable to what his brother Alan said. Objective/Medical Story: 77-year-old white female with a history of COPD, tobacco use disorder, alcoholism brought in for generalized weakness. She was evaluated July 15 in outpatient setting at a [facility] in [place] for dyspnea and cough for a week. She was diagnosed with pneumonia and prescribed Zithromax and fluconazole. She took both of these prescriptions and fill them. She took 1 do se of these medications on July 15. Later that night, while taking a shower she experienced a rapid onset of generalized weakness causing her to fall. She slowly descended to the ground rather than a sudden fall. But she was so weak that she could not stand up anymore. 911 was called. Later that night her primary care provider called to tell her that her sodium was 120. EMS found her to be hypoxic at 78%, and she required 4 L nasal cannula in the ambulance. Further evaluation if she stayed in the emergency room included Rocephin. And a CT of the chest which had small patchy infiltrates in the left upper lobe and a nodule in the left major fissure. Small pleural effusion. No rib fractures. There were no beds available at [facility] and as such admission to this in facility was approved. She was admitted to the hospital July 16. Patient did not initially admit to alcohol abuse. But as the next few days went on, patient became weaker, worsening COPD, confused. That is when we found out that she has a history of alcohol withdrawal and most likely was going through delirium tremens. This in turn made COPD worse. She had increasing requirement for oxygen supplementation. She became hypoxic and hypercapnic enough that she needed to be intubated. July 18. Extubation has been difficult. We have weaned her over several CPAP trials. She waxes and wanes with her tachypnea and anxiety. She has been on low-dose fentanyl and Ativan drip. After 3 days of active attempts to extubate, we finally felt the patient was stable enough to extubate on July 24. Unfortunate between July 24 and now she has had recurrent cough, copious phlegm production that she is unable to clear. She is becoming more hypercarbic and more obtunded again. It is now time for reintubation. Goals of Care: Goals of care have now switched to comfort measures. And DNR status Plan: Stop all active orders for blood draws and vitals. Transition to Tylenol 1000 IV every 6 as needed fever or headache Roxanol drops 10 mg sublingual every 2 hours as needed pain or shortness of breath Ativan sublingual 0.5 mg every 2 hours as needed for anxiety Atropine drops for secretions Code Status: Do Not Attempt Resuscitation Time spent on advance care plannin minutes
[2022-07-26] MEDS: LORazepam 0.5 MG TABLET SL PRN ×2 (01:33→12:59)
[2022-07-26] MEDS: SODIUM CHLORIDE FLUSH 0.9% 10 ML SYRINGE IVP SCH ×3 (02:32→18:12)
[2022-07-26] MEDS: FUROSEMIDE 20 MG/2 ML VIAL IVP SCH ×2 (05:38→12:59)
[2022-07-26] MEDS: ALBUTEROL NEB 2.5 MG/3 ML INH SCH ×4 (05:40→17:55)
[2022-07-26] MEDS: NICOTINE 7 MG PATCH TOP SCH (12:59)
[2022-07-26] MEDS: polyethylene glycoL 3350 17 GM PACKET PO SCH (12:59)
--- NOTE | 2022-07-26 15:41 | PROVIDER PROGRESS NOTE ---
Progress Note Subjective: Patient per patient family wishes is converted to comfort measures. Also supplemental oxygen is needed for comfort. Hospice referral for outpatient care has been entered in EMR today Objective: Vital signs stable Head: Normocephalic atraumatic General the patient is somewhat lethargic and confused Chest: Scant rhonchi Cor: Regular rate and rhythm S1-S2 Abdomen: Soft nontender bowel sounds present Extremities: Trace bilateral pedal edema Psych: Blunted affect with some confusion - Problem List Failure to thrive 07/26/22-patient currently comfort care measures, hospice referral consulted failure to thrive, subacute, present on admission -He has been decided that she will be comfort care and hospice has been consulted (1) Alcohol withdrawal delirium Impression: Per the previous hospitalist on service: The night of 07/16, the patient reported visual hallucinations of lions and tigers in her room. Initially we believed this was a result of hyponatremia or from iatrogenic hyperthyroidism (excessive Synthroid, based on very low TSH result). Throughout the night of 07/17 until morning of 07/18, the patient believed she was on a ship going to [place] and was very anxious. She even sent multiple lengthy texts to her son about how she was on a boat. Furthermore, she also assigned nicknames to all the nursing staff, such as 'tiny fairy', 'the head master', and 'tiny flower'. I had a suspicion that she was going through alcohol withdrawal, based on having a high MCV, and that it is 48 houyrs since admission, I ordered a CIWA score which was 14. Initially, the patient did not report alcohol use. However, after speaking with her son Ha at bedside 07/18, he reported that she has been mixing cheap boxed wine and more expensive bottled wine in an old orange juice gallon container. She then mixes this concoction with toy sophie. She drinks this from noon until she goes to sleep at about 2200. Ha estimates that she drinks 1.5L of wine daily. The patient herself has not admitted to her alcohol habits and was even embarrassed to admit her 50+ years smoking habits on this admission. The patient continued to be confused and agitated. She was not speaking coherently and was not oriented to place or time. I ordered IV Ativan 2 mg x1 and a STAT head CT to rule out CVA. Head CT found: No acute intracranial abnormality Patient was transferred to the ICU after returning from CT. SEJALWA protocal ordered, with iv Ativan drip. On the Ativan drip, she was less combative but became more hypopneic and a blood gas was ordered (see #2 #3) Thiamine supplementation started. Her delirium resulted in decompensation of COPD in the face of pneumonia. This resulted in acute respiratory failure with hypoxia and she needed to be intubated. She has now been extubated since July 24. This morning delirium is the prominent manifestation. She is confused, wants to go home, keeps on insisting she wants to get out of bed. . Overnight she has problems with obstructive sleep apnea and the oxy mask went from 8 L, oxygen is at 12 L of oxygen. As of this morning we brought her down to 8 L of oxygen again. O2 sats are 93 to 97% with this. However as the morning has progressed she has become warm more obtunded. Less and less responsive. Advance care planning conversation held with son. Alan asked me to please defer to his brother and he since and he is agent #1. And he then said that he is overwhelmed, and he will defer to Alan's decision. Plan: Part of her delirium at this point in time still may be alcohol withdrawal. But this patient's prognosis is poor, and after advance care planning conversation we are changing CODE STATUS to DO NOT RESUSCITATE. DO NOT INTUBATE. I will focus on keeping her comfortable with sublingual Ativan as needed (2) Acute respiratory failure with hypoxia Impression: On 07/15, EMS arrived to find patient with a pulse ox of 78% on room air, which subsequently improved with 4L/min nasal cannula oxygen to 89-91%. Her O2 supplement was relatively stable as we started treating her COPD and pneumonia On 07/18, the patient went into alcohol withdrawal with agitation and delerium. Her O2 sat was 88% on 4L nasal cannula. She was then placed on an oxygen mask wi th 12L/min oxygen.After starting iv Ativan for treatimng alcohol withdrawal, the patient developed respiratory distress, became tachypneic (rate of 32), tachycardic (102), and was placed on a non-rebreather mask. Then an ABG showed severe respiratory acidosis. She was intubated. Chest x-ray was repeated, showed ET tube in the right place, persistent bilateral infiltrates and CHF persist Given the new CHF seen on CXRs, an Echo was ordered however we have no vehicle monitor technician here until 07/23. Therefore on 07/20, I performed a limited bedside Echo (see separate note). The Echo showed normal LVEF, and mild diastolic dysfunction present. RV is dilated, but I could not measure her PA pressure. On 07/20 we started CPAP trials, 1 hour each shift, and her iv sedatives were turned off 30 minutes before CPAP. On 07/21 she did 3 CPAP trials of 1 hour, then could not follow directions to measure NIF and weaning parameters, so was put back on the vent at full settings. On 07/22, she did 2.5 hours of CPAP in a.m. But in afternoon, she failed after 10 min of CPAP with tachypnea and low TV, was put back on sedatives and vent support SIMV and PEEP 8. 07/23 she did hours of CPAP and was off fentanyl and ativan most of the day from this morning, and no tachypnea, no tachycardia, was able to but nif was only - 5, TV she generated 400 cc on her own. By 4 in the afternoon she was still really not responding enough to give us direction about extubation. Our fear was that we would extubate her later in the afternoon and then have to reintubate her. 07/24; Weaning her started again at 7:30 in the morning. All sedatives were removed. ABG at 745 showed a pH of 7.50, PCO2 41, PO2 67. Bicarb 31. Base excess +7.0. Rate was 16, pressure support of 14, PEEP of 8, FiO2 from 60%. By 8:30 in the morning she was awake, opening her eyes, intermittently responding to our voices in their request. But she was not consistent. We gave her 2 hours of CPAP trial with pressure support of 14. She was not tachycardic, O2 sats were holding at an FiO2 of 45%. And I extubated her. 07/25: She is failing today. PCO2 is climbing, blood gas is getting more acidotic. Her sons have decided not to reintubate her. Plan: No BiPAP. No reintubation. Focus on comfort measures. Ativan 1 mg sublingual every 2 hours as needed for agitation and discomfort Roxanol 10 mg sublingual every 2 hours as needed for pain Robinul for secretions Tylenol/Ofimerv 1000 mg IV every 6 hours as needed fever, pain (2) Pneumonia Conclusion/Plan: Patient has right upper lobe pneumonia with mild left upper pneumonia. She took one dose of PO azithromycin 500 mg at home on 07/15. On 07/16, she was given azithromycin IV and started on ceftriaxone IV. July 23 was day #[address] chest w/ IV contrast from 07/16: Right upper lobe consolidation consistent with pneumonia. Mild pneumonia is also seen in the left upper lobe. Bilateral pleural effusions (small on the right and trace on the left). Mediastinal and hilar lymphadenopathy, most likely reactive in the setting of pneumonia. A 5 mm nodule found along the LEFT major fissure. Mild cardiomegaly with severe coronary atherosclerosis. Her blood cultures are negative to date. We have not been able to obtain a sputum sample to send for culture, even on the vent. Antibiotics stopped on July 23. In spite of completing antibiotics, intubation for suction, benzodiazepine for alcohol withdrawal, she has not been able to turn the corner. This morning she has been steadily worsening to this afternoon. Plan: Comfort measures. Qualifiers: Pneumonia type: due to unspecified organism Laterality: bilateral Lung location: upper lobe of lung Qualified Code(s): J18.9 - Pneumonia, unspecified organism (3) COPD with exacerbation Conclusion/Plan: Patient has a history of COPD likely due to her extensive smoking history (56 years) and being a "chain smoker". At baseline, she does not require supplemental oxygen; however, she has needed at least 4L/min of oxygen to keep her O2 sat in the low 90%. Initially, nebulized bronchodilator treatments resulted in significant improvement in her ability to breathe, but is still very short of breath when walking. 07/18, her breathing worsened due to IV Ativan that was needed for treating her acute alcohol withdrawal. She was then placed on an oxygen mask with 12L/min oxygen. She then needed to be intubated Plan: Still on oxygen for comfort. Unable to do NT suction to get phlegm. No reintubation after ACP discussion. (4) Cor Pulmonale A very dilated RV was seen on a limited bedside Echo, which was done 07/21. This is very likely from her longstanding smoking, and COPD. Plan: She did receive some Lasix this morning to see if this could help her. (5) Hyponatremia Conclusion/Plan: This was likely hypovolemic hyponatremia due to not eating much in the last few weeks and also alcohol abuse. Patient reports she has not been hungry because of grief after her . On admission, she was hyponatremic and her sodium level was 123. On 07/17, it has improved to 128. When I went to visit with the patient on 07/17, she did not remember that we had a lengthy conversation yesterday about her late . Initially, I thought this was due to her low sodium levels yesterday. 07/18, her BNP came back high at 229. Her sodium increased to 132. A CXR was done that showed volume overload We stopped IV saline, and started Lasix No more restriction of free water needed Sodium has been normal since July 19. Slowly and steadily climbing. She went from 135 on that day and is 136 today. Plan: Stop NG tube feeds. Start a regular diet once we do a swallow eval with speech therapy. Follow CMP and Mg intermittently Continue with ICU electrolyte protocol. Increase IV fluids to a total of 85 cc an hour if she cannot drink enough water (6) Incidental lung nodule, > 3mm and < 8mm Conclusion/Plan: Though chest CT was initially ordered by the ER to rule out rib fractures from her fall, several lung findings were noted. These are especially concerning given the patient's extensive smoking history (56 years) Chest CT w/contrast from 07/16 found a 5 mm nodule along the LEFT major fissure. In addition, there was also mediastinal and hilar adenopathy, a 1.8 cm right paratracheal lymph node, a 1.3 cm clustered AP window lymph node, a 1.3 cm right hilar lymph node, and a 1 cm left hilar lymph node NOTE- Initial radiology report described a 5 mm right-sided nodule, however, it has subsequently been corrected to LEFT-sided nodule. These findings were discussed with the patient, and she expressed understanding. The next morning on 07/17, the nurse reported that the patient was very anxious and worrying about what will happen to her disabled son when she passes away. Plan: Follow up CT recommended in 6-12 months. Then, again at 18-24 months if no change. (7) Iatrogenic hyperthyroidism Assessment/Plan: Patient has a history of hypothyroidism for which she takes levothyroxine 125 mcg at home. She has not been on this medication during her stay here. On 07/17, we discovered that her TSH was <0.08. I believe the patient is over treating herself with her levothyroxine, especially now that she is down 30 pounds. Her current hyperthyroidism could be contributing to many of her symptoms including anxiety, brief episode of PSVT, dyspnea, weight loss, and confusion. Plan: Continue the decreased Levothyroxine dose of 112 mcg (8) Tobacco abuse disorder Conclusion/Plan: She has been smoking since she was 21 years old and has never been able to quit despite multiple attempts, including hypnotherapy. She has decreased from 3 packs daily to ~8 cigarettes daily over time. She was very embarrassed to speak about her smoking habits in front of her family and even became tearful when speaking about it. On 07/17, she described herself as being a "chain smoker". She also admitted to us that she has been smoking more since her to help manage her grief. Plan: Nicotine patch daily. I have weaned down the 14 mg patch down to 7 mg, several days ago (9) PSVT (paroxysmal supraventricular tachycardia) Conclusion/Plan: RESOLVED On 07/16 at approximately 13:45, patient had a brief run of PSVT. I suspect this was caused by her current lung disease, however I will also check for hyperthyroidism. On 07/17, her TSH was <0.08, indicating overtreatment with her Levothyroxine. Plan: Monitor on telemetry
[2022-07-27] MEDS: LORazepam 0.5 MG TABLET SL PRN ×2 (01:18→10:03)
[2022-07-27] MEDS: SODIUM CHLORIDE FLUSH 0.9% 10 ML SYRINGE IVP SCH ×3 (05:58→17:20)
[2022-07-27] MEDS: FUROSEMIDE 20 MG/2 ML VIAL IVP SCH (05:58)
[2022-07-27] MEDS: ALBUTEROL NEB 2.5 MG/3 ML INH SCH ×4 (07:44→18:58)
[2022-07-27] MEDS: polyethylene glycoL 3350 17 GM PACKET PO SCH (09:58)
[2022-07-27] MEDS: NICOTINE 7 MG PATCH TOP SCH (09:58)
[2022-07-27] MEDS: DOCUSATE SODIUM 250 MG CAPSULE PO SCH (12:14)
[2022-07-27] MEDS: SENNA 8.6 MG TABLET PO SCH (12:14)
[2022-07-27] MEDS: FUROSEMIDE 20 MG TABLET PO SCH (17:20)
[2022-07-28] MEDS: SODIUM CHLORIDE FLUSH 0.9% 10 ML SYRINGE IVP SCH ×3 (01:55→19:15)
[2022-07-28] MEDS: LORazepam 0.5 MG TABLET SL PRN (01:55)
[2022-07-28] MEDS: ALBUTEROL NEB 2.5 MG/3 ML INH SCH ×4 (06:15→20:31)
[2022-07-28] MEDS: FUROSEMIDE 20 MG TABLET PO SCH ×2 (06:41→13:48)
[2022-07-28] MEDS: DOCUSATE SODIUM 250 MG CAPSULE PO SCH (08:31)
[2022-07-28] MEDS: polyethylene glycoL 3350 17 GM PACKET PO SCH (08:32)
[2022-07-28] MEDS: NICOTINE 7 MG PATCH TOP SCH (08:33)
[2022-07-28] MEDS: SENNA 8.6 MG TABLET PO SCH (08:33)
[2022-07-28] MEDS: LEVOTHYROXINE 125 MCG TABLET PO SCH (11:56)
[2022-07-28] MEDS ORDERED: amLODIPine 5 MG TABLET PO SCH (12:00)
--- NOTE | 2022-07-28 13:22 | PROVIDER PROGRESS NOTE ---
Progress Note Progress Note Subjective: Patient per patient family wishes is converted to comfort measures. Also supplemental oxygen is needed for comfort. Hospice referral for outpatient care has been entered in EMR today. Patient mental status and general status is improving and patient wishes to go to retirement facility and will try to make these arrangements. When she is stable enough to be transferred at that time. Objective: Vital signs stable Head: Normocephalic atraumatic General the patient is somewhat lethargic and confused Chest: Scant rhonchi Cor: Regular rate and rhythm S1-S2 Abdomen: Soft nontender bowel sounds present Extremities: Trace bilateral pedal edema Psych: Blunted affect with some confusion 07/28/2022-patient will be reinitiated on her home medications as her current status has improved. Plan is to obtain SNF placement. - Problem List Failure to thrive 07/26/22-patient currently comfort care measures, hospice referral consulted failure to thrive, subacute, present on admission -He has been decided that she will be comfort care and hospice has been consulted (1) Alcohol withdrawal delirium Impression: Per the previous hospitalist on service: The night of 07/16, the patient reported visual hallucinations of lions and tigers in her room. Initially we believed this was a result of hyponatremia or from iatrogenic hyperthyroidism (excessive Synthroid, based on very low TSH result). Throughout the night of 07/17 until morning of 07/18, the patient believed she was on a ship going to [place] and was very anxious. She even sent multiple lengthy texts to her son about how she was on a boat. Furthermore, she also assigned nicknames to all the nursing staff, such as 'tiny fairy', 'the head master', and 'tiny flower'. I had a suspicion that she was going through alcohol withdrawal, based on having a high MCV, and that it is 48 houyrs since admission, I ordered a CIWA score which was 14. Initially, the patient did not report alcohol use. However, after speaking with her son Ha at bedside 07/18, he reported that she has been mixing cheap boxed wine and more expensive bottled wine in an old orange juice gallon container. She then mixes this concoction with toy sophie. She drinks this from noon until she goes to sleep at about 2200. Ha estimates that she drinks 1.5L of wine daily. The patient herself has not admitted to her alcohol habits and was even embarrassed to admit her 50+ years smoking habits on this admission. The patient continued to be confused and agitated. She was not speaking coherently and was not oriented to place or time. I ordered IV Ativan 2 mg x1 and a STAT head CT to rule out CVA. Head CT found: No acute intracranial abnormality Patient was transferred to the ICU after returning from CT. CIWA protocal ordered, with iv Ativan drip. On the Ativan drip, she was less combative but became more hypopneic and a blood gas was ordered (see #2 #3) Thiamine supplementation started. Her delirium resulted in decompensation of COPD in the face of pneumonia. This resulted in acute respiratory failure with hypoxia and she needed to be intubated. She has now been extubated since July 24. This morning delirium is the prominent manifestation. She is confused, wants to go home, keeps on insisting she wants to get out of bed. . Overnight she has problems with obstructive sleep apnea and the oxy mask went from 8 L, oxygen is at 12 L of oxygen. As of this morning we brought her down to 8 L of oxygen again. O2 sats are 93 to 97% with this. However as the morning has progressed she has become warm more obtunded. Less and less responsive. Advance care planning c onversation held with sonAnali Phillips asked me to please defer to his brother and he since and he is agent #1. And he then said that he is overwhelmed, and he will defer to Alan's decision. Plan: Part of her delirium at this point in time still may be alcohol withdrawal. But this patient's prognosis is poor, and after advance care planning conversation we are changing CODE STATUS to DO NOT RESUSCITATE. DO NOT INTUBATE. I will focus on keeping her comfortable with sublingual Ativan as needed (2) Acute respiratory failure with hypoxia Impression: On 07/15, EMS arrived to find patient with a pulse ox of 78% on room air, which subsequently improved with 4L/min nasal cannula oxygen to 89-91%. Her O2 supplement was relatively stable as we started treating her COPD and pneumonia On 07/18, the patient went into alcohol withdrawal with agitation and delerium. Her O2 sat was 88% on 4L nasal cannula. She was then placed on an oxygen mask with 12L/min oxygen.After starting iv Ativan for treatimng alcohol withdrawal, the patient developed respiratory distress, became tachypneic (rate of 32), tachycardic (102), and was placed on a non-rebreather mask. Then an ABG showed severe respiratory acidosis. She was intubated. Chest x-ray was repeated, showed ET tube in the right place, persistent bilateral infiltrates and CHF persist Given the new CHF seen on CXRs, an Echo was ordered however we have no flight test data acquisition technician here until 07/23. Therefore on 07/20, I performed a limited bedside Echo (see separate note). The Echo showed normal LVEF, and mild diastolic d ysfunction present. RV is dilated, but I could not measure her PA pressure. On 07/20 we started CPAP trials, 1 hour each shift, and her iv sedatives were turned off 30 minutes before CPAP. On 07/21 she did 3 CPAP trials of 1 hour, then could not follow directions to measure NIF and weaning parameters, so was put back on the vent at full settings. On 07/22, she did 2.5 hours of CPAP in a.m. But in afternoon, she failed after 10 min of CPAP with tachypnea and low TV, was put back on sedatives and vent support SIMV and PEEP 8. 07/23 she did hours of CPAP and was off fentanyl and ativan most of the day from this morning, and no tachypnea, no tachycardia, was able to but nif was only - 5, TV she generated 400 cc on her own. By 4 in the afternoon she was still really not responding enough to give us direction about extubation. Our fear was that we would extubate her later in the afternoon and then have to reintubate her. 07/24; Weaning her started again at 7:30 in the morning. All sedatives were r emoved. ABG at 745 showed a pH of 7.50, PCO2 41, PO2 67. Bicarb 31. Base excess +7.0. Rate was 16, pressure support of 14, PEEP of 8, FiO2 from 60%. By 8:30 in the morning she was awake, opening her eyes, intermittently responding to our voices in their request. But she was not consistent. We gave her 2 hours of CPAP trial with pressure support of 14. She was not tachycardic, O2 sats were holding at an FiO2 of 45%. And I extubated her. 07/25: She is failing today. PCO2 is climbing, blood gas is getting more acidotic. Her sons have decided not to reintubate her. Plan: No BiPAP. No reintubation. Focus on comfort measures. Ativan 1 mg sublingual every 2 hours as needed for agitation and discomfort Roxanol 10 mg sublingual every 2 hours as needed for pain Robinul for secretions Tylenol/Ofimerv 1000 mg IV every 6 hours as needed fever, pain (2) Pneumonia Conclusion/Plan: Patient has right upper lobe pneumonia with mild left upper pneumonia. She took one dose of PO azithromycin 500 mg at home on 07/15. On 07/16, she was given azithromycin IV and started on ceftriaxone IV. July 23 was day #[address] chest w/ IV contrast from 07/16: Right upper lobe consolidation consistent with pneumonia. Mild pneumonia is also seen in the left upper lobe. Bilateral pleural effusions (small on the right and trace on the left). Mediastinal and hilar lymphadenopathy, most likely reactive in the setting of pneumonia. A 5 mm nodule found along the LEFT major fissure. Mild cardiomegaly with severe coronary atherosclerosis. Her blood cultures are negative to date. We have not been able to obtain a sputum sample to send for culture, even on the vent. Antibiotics stopped on July 23. In spite of completing antibiotics, intubation for suction, benzodiazepine for alcohol withdrawal, she has not been able to turn the corner. This morning she has been steadily worsening to this afternoon. Plan: Comfort measures. Qualifiers: Pneumonia type: due to unspecified organism Laterality: bilateral Lung location: upper lobe of lung Qualified Code(s): J18.9 - Pneumonia, unspecified organism (3) COPD with exacerbation Conclusion/Plan: Patient has a history of COPD likely due to her extensive smoking history (56 years) and being a "chain smoker". At baseline, she does not require supplemental oxygen; however, she has needed at least 4L/min of oxygen to keep her O2 sat in the low 90%. Initially, nebulized bronchodilator treatments resulted in significant improvement in her ability to breathe, but is still very short of breath when walking. 07/18, her breathing worsened due to IV Ativan that was needed for treating her acute alcohol withdrawal. She was then placed on an oxygen mask with 12L/min oxygen. She then needed to be intubated Plan: Still on oxygen for comfort. Unable to do NT suction to get phlegm. No reintubation after ACP discussion. (4) Cor Pulmonale A very dilated RV was seen on a limited bedside Echo, which was done 07/21. This is very likely from her longstanding smoking, and COPD. Plan: She did receive some Lasix this morning to see if this could help her. (5) Hyponatremia Conclusion/Plan: This was likely hypovolemic hyponatremia due to not eating much in the last few weeks and also alcohol abuse. Patient reports she has not been hungry because of grief after her . On admission, she was hyponatremic and her sodium level was 123. On 07/17, it has improved to 128. When I went to visit with the patient on 07/17, she did not remember that we had a lengthy conversation yesterday about her late . Initially, I thought this was due to her low sodium levels yesterday. 07/18, her BNP came back high at 229. Her sodium increased to 132. A CXR was done that showed volume overload We stopped IV saline, and started Lasix No more restriction of free water needed Sodium has been normal since July 19. Slowly and steadily climbing. She went from 135 on that day and is 136 today. Plan: Stop NG tube feeds. Start a regular diet once we do a swallow eval with speech therapy. Follow CMP and Mg intermittently Continue with ICU electrolyte protocol. Increase IV fluids to a total of 85 cc an hour if she cannot drink enough water (6) Incidental lung nodule, > 3mm and < 8mm Conclusion/Plan: Though chest CT was initially ordered by the ER to rule out rib fractures from her fall, several lung findings were noted. These are especially concerning given the patient's extensive smoking history (56 years) Chest CT w/contrast from 07/16 found a 5 mm nodule along the LEFT major fissure. In addition, there was also mediastinal and hilar adenopathy, a 1.8 cm right paratracheal lymph node, a 1.3 cm clustered AP window lymph node, a 1.3 cm right hilar lymph node, and a 1 cm left hilar lymph node NOTE- Initial radiology report described a 5 mm right-sided nodule, however, it has subsequently been corrected to LEFT-sided nodule. These findings were discussed with the patient, and she expressed understanding. The next morning on 07/17, the nurse reported that the patient was very anxious and worrying about what will happen to her disabled son when she passes away. Plan: Follow up CT recommended in 6-12 months. Then, again at 18-24 months if no change. (7) Iatrogenic hyperthyroidism Assessment/Plan: Patient has a history of hypothyroidism for which she takes levothyroxine 125 mcg at home. She has not been on this medication during her stay here. On 07/17, we discovered that her TSH was <0.08. I believe the patient is over treating herself with her levothyroxine, especially now that she is down 30 pounds. Her current hyperthyroidism could be contributing to many of her symptoms including anxiety, brief episode of PSVT, dyspnea, weight loss, and confusion. Plan: Continue the decreased Levothyroxine dose of 112 mcg (8) Tobacco abuse disorder Conclusion/Plan: She has been smoking since she was 21 years old and has never been able to quit despite multiple attempts, including hypnotherapy. She has decreased from 3 packs daily to ~8 cigarettes daily over time. She was very embarrassed to speak about her smoking habits in front of her family and even became tearful when speaking about it. On 07/17, she described herself as being a "chain smoker". She also admitted to us that she has been smoking more since her to help manage her grief. Plan: Nicotine patch daily. I have weaned down the 14 mg patch down to 7 mg, several days ago (9) PSVT (paroxysmal supraventricular tachycardia) Conclusion/Plan: RESOLVED On 07/16 at approximately 13:45, patient had a brief run of PSVT. I suspect this was caused by her current lung disease, however I will also check for hyperthyroidism. On 07/17, her TSH was <0.08, indicating overtreatment with her Levothyroxine. Plan: Monitor on telemetry
[2022-07-29] MEDS: ZINC OXIDE 20% OINT 30 GM TUBE TOP PRN (05:45)
[2022-07-29] MEDS: FUROSEMIDE 20 MG TABLET PO SCH ×2 (06:46→14:18)
[2022-07-29] MEDS: LEVOTHYROXINE 125 MCG TABLET PO SCH (06:46)
[2022-07-29] MEDS: SODIUM CHLORIDE FLUSH 0.9% 10 ML SYRINGE IVP SCH ×3 (06:46→16:54)
[2022-07-29] MEDS: ALBUTEROL NEB 2.5 MG/3 ML INH SCH ×4 (07:15→19:50)
[2022-07-29] MEDS: SENNA 8.6 MG TABLET PO SCH (08:24)
[2022-07-29] MEDS: DOCUSATE SODIUM 250 MG CAPSULE PO SCH (08:24)
[2022-07-29] MEDS: NICOTINE 7 MG PATCH TOP SCH (08:25)
[2022-07-29] MEDS: polyethylene glycoL 3350 17 GM PACKET PO SCH (08:25)
[2022-07-29] MEDS: PRENATAL VITAMIN TABLET PO SCH (14:18)
--- NOTE | 2022-07-29 14:35 | PROVIDER PROGRESS NOTE ---
Progress Note Subjective: Patient per patient family wishes is converted to comfort measures. Also supplemental oxygen is needed for comfort. Hospice referral for outpatient care has been entered in EMR today. Patient mental status and general status is improving and patient wishes to go to prison facility and will try to make these arrangements. When she is stable enough to be transferred at that time. Objective: Vital signs stable Head: Normocephalic atraumatic General the patient is somewhat lethargic and confused Chest: Scant rhonchi Cor: Regular rate and rhythm S1-S2 Abdomen: Soft nontender bowel sounds present Extremities: Trace bilateral pedal edema Psych: Blunted affect with some confusion 07/28/2022-patient will be reinitiated on her home medications as her current status has improved. Plan is to obtain SNF placement. 07/29patient will get OT and PT evaluations in anticipation for SNF placement. - Problem List Failure to thrive 07/26/22-patient currently comfort care measures, hospice referral consulted failure to thrive, subacute, present on admission -He has been decided that she will be comfort care and hospice has been consulted (1) Alcohol withdrawal delirium Impression: Per the previous hospitalist on service: The night of 07/16, the patient reported visual hallucinations of lions and tigers in her room. Initially we believed this was a result of hyponatremia or from iatrogenic hyperthyroidism (excessive Synthroid, based on very low TSH result). Throughout the night of 07/17 until morning of 07/18, the patient believed she was on a ship going to [place] and was very anxious. She even sent multiple lengthy texts to her son about how she was on a boat. Furthermore, she also assigned nicknames to all the nursing staff, such as 'cinda fairy', 'the head master', and 'tiny flower'. I had a suspicion that she was going through alcohol withdrawal, based on having a high MCV, and that it is 48 houyrs since admission, I ordered a CIWA score which was 14. Initially, the patient did not report alcohol use. However, after speaking with her son Ha at bedside 07/18, he reported that she has been mixing cheap boxed wine and more expensive bottled wine in an old orange juice gallon container. She then mixes this concoction with toy sophie. She drinks this from noon until she goes to sleep at about 2200. Ha estimates that she drinks 1.5L of wine daily. The patient herself has not admitted to her alcohol habits and was even embarrassed to admit her 50+ years smoking habits on this admission. The patient continued to be confused and agitated. She was not speaking coherently and was not oriented to place or time. I ordered IV Ativan 2 mg x1 and a STAT head CT to rule out CVA. Head CT found: No acute intracranial abnormality Patient was transferred to the ICU after returning from CT. CIWA protocal ordered, with iv Ativan drip. On the Ativan drip, she was less combative but became more hypopneic and a blood gas was ordered (see #2 #3) Thiamine supplementation started. Her delirium resulted in decompensation of COPD in the face of pneumonia. This resulted in acute respiratory failure with hypoxia and she needed to be intubated. She has now been extubated since July 24. This morning delirium is the prominent manifestation. She is confused, wants to go home, keeps on insisting she wants to get out of bed. . Overnight she has problems with obstructive sleep apnea and the oxy mask went from 8 L, oxygen is at 12 L of oxygen. As of this morning we brought her down to 8 L of oxygen again. O2 sats are 93 to 97% with this. However as the morning has progressed she has become warm more obtunded. Less and less responsive. Advance care planning conversation held with sonAnali Phillips asked me to please defer to his brother and he since and he is agent #1. And he then said that he is overwhelmed, and he will defer to Alan's decision. Plan: Part of her delirium at this point in time still may be alcohol withdrawal. But this patient's prognosis is poor, and after advance care planning conversation we are changing CODE STATUS to DO NOT RESUSCITATE. DO NOT INTUBATE. I will focus on keeping her comfortable with sublingual Ativan as needed 07/15 5over the past few days patient was initiated on comfort measures and she has remarkably rebounded and is eating sitting on her own will get OT PT consults and anticipate prison facility placement in the very near future. (2) Acute respiratory failure with hypoxia Impression: On 07/15, EMS arrived to find patient with a pulse ox of 78% on room air, which subsequently improved with 4L/min nasal cannula oxygen to 89-91%. Her O2 supplement was relatively stable as we started treating her COPD and pneumonia On 07/18, the patient went into alcohol withdrawal with agitation and delerium. Her O2 sat was 88% on 4L nasal cannula. She was then placed on an oxygen mask with 12L/min oxygen.After starting iv Ativan for treatimng alcohol withdrawal, the patient developed respiratory distress, became tachypneic (rate of 32), tachycardic (102), and was placed on a non-rebreather mask. Then an ABG showed severe respiratory acidosis. She was intubated. Chest x-ray was repeated, showed ET tube in the right place, persistent bilateral infiltrates and CHF persist Given the new CHF seen on CXRs, an Echo was ordered however we have no physics technician here until 07/23. Therefore on 07/20, I performed a limited bedside Echo (see separate note). The Echo showed normal LVEF, and mild diastolic dysfunction present. RV is dilated, but I could not measure her PA pressure. On 07/20 we started CPAP trials, 1 hour each shift, and her iv sedatives were turned off 30 minutes before CPAP. On 07/21 she did 3 CPAP trials of 1 hour, then could not follow directions to measure NIF and weaning parameters, so was put back on the vent at full settings. On 07/22, she did 2.5 hours of CPAP in a.m. But in afternoon, she failed after 10 min of CPAP with tachypnea and low TV, was put back on sedatives and vent support SIMV and PEEP 8. 07/23 she did hours of CPAP and was off fentanyl and ativan most of the day from this morning, and no tachypnea, no tachycardia, was able to but nif was only - 5, TV she generated 400 cc on her own. By 4 in the afternoon she was still really not responding enough to give us direction about extubation. Our fear was that we would extubate her later in the afternoon and then have to reintubate her. 07/24; Weaning her started again at 7:30 in the morning. All sedatives were removed. ABG at 745 showed a pH of 7.50, PCO2 41, PO2 67. Bicarb 31. Base excess +7.0. Rate was 16, pressure support of 14, PEEP of 8, FiO2 from 60%. By 8:30 in the morning she was awake, opening her eyes, intermittently responding to our voices in their request. But she was not consistent. We gave her 2 hours of CPAP trial with pressure support of 14. She was not tachycardic, O2 sats were holding at an FiO2 of 45%. And I extubated her. 07/25: She is failing today. PCO2 is climbing, blood gas is getting more acido tic. Her sons have decided not to reintubate her. Plan: No BiPAP. No reintubation. Focus on comfort measures. Ativan 1 mg sublingual every 2 hours as needed for agitation and discomfort Roxanol 10 mg sublingual every 2 hours as needed for pain Robinul for secretions Tylenol/Ofimerv 1000 mg IV every 6 hours as needed fever, pain (2) Pneumonia Conclusion/Plan: Patient has right upper lobe pneumonia with mild left upper pneumonia. She took one dose of PO azithromycin 500 mg at home on 07/15. On 07/16, she was given azithromycin IV and started on ceftriaxone IV. July 23 was day #[address] chest w/ IV contrast from 07/16: Right upper lobe consolidation consistent with pneumonia. Mild pneumonia is also seen in the left upper lobe. Bilateral pleural effusions (small on the right and trace on the left). Mediastinal and hilar lymphadenopathy, most likely reactive in the setting of pneumonia. A 5 mm nodule found along the LEFT major fissure. Mild cardiomegaly with severe coronary atherosclerosis. Her blood cultures are negative to date. We have not been able to obtain a sputum sample to send for culture, even on the vent. Antibiotics stopped on July 23. In spite of completing antibiotics, intubation for suction, benzodiazepine for alcohol withdrawal, she has not been able to turn the corner. This morning she has been steadily worsening to this afternoon. Plan: Comfort measures.Subsequent to comfort measures being initiated over the past 4 days patient has had marked improvements. Plan will be to transfer to prison facility when available. Qualifiers: Pneumonia type: due to unspecified organism Laterality: bilateral Lung location: upper lobe of lung Qualified Code(s): J18.9 - Pneumonia, unspecified organism (3) COPD with exacerbation Conclusion/Plan: Patient has a history of COPD likely due to her extensive smoking history (56 years) and being a "chain smoker". At baseline, she does not require supplemental oxygen; however, she has needed at least 4L/min of oxygen to keep her O2 sat in the low 90%. Initially, nebulized bronchodilator treatments resulted in significant improvement in her ability to breathe, but is still very short of breath when walking. 07/18, her breathing worsened due to IV Ativan that was needed for treating her acute alcohol withdrawal. She was then placed on an oxygen mask with 12L/min oxygen. She then needed to be intubated 07/29 Patient has been stable as far as her COPD goes over the last 4 days (4) Cor Pulmonale A very dilated RV was seen on a limited bedside Echo, which was done 07/21. This is very likely from her longstanding smoking, and COPD. (5) Hyponatremia Conclusion/Plan: This was likely hypovolemic hyponatremia due to not eating much in the last few weeks and also alcohol abuse. Patient reports she has not been hungry because of grief after her . On admission, she was hyponatremic and her sodium level was 123. On 07/17, it has improved to 128. When I went to visit with the patient on 07/17, she did not remember that we had a lengthy conversation yesterday about her late . Initially, I thought this was due to her low sodium levels yesterday. 07/18, her BNP came back high at 229. Her sodium increased to 132. A CXR was done that showed volume overload We stopped IV saline, and started Lasix No more restriction of free water needed Sodium has been normal since July 19. Slowly and steadily climbing. She went from 135 on that day and is 136 today. Resolved. (6) Incidental lung nodule, > 3mm and < 8mm Conclusion/Plan: Though chest CT was initially ordered by the ER to rule out rib fractures from her fall, several lung findings were noted. These are especially concerning given the patient's extensive smoking history (56 years) Chest CT w/contrast from 07/16 found a 5 mm nodule along the LEFT major fissure. In addition, there was also mediastinal and hilar adenopathy, a 1.8 cm right paratracheal lymph node, a 1.3 cm clustered AP window lymph node, a 1.3 cm right hilar lymph node, and a 1 cm left hilar lymph node NOTE- Initial radiology report described a 5 mm right-sided nodule, however, it has subsequently been corrected to LEFT-sided nodule. These findings were discussed with the patient, and she expressed understanding. The next morning on 07/17, the nurse reported that the patient was very anxious and worrying about what will happen to her disabled son when she passes away. Plan: Follow up CT recommended in 6-12 months. Then, again at 18-24 months if no change. (7) Iatrogenic hyperthyroidism Assessment/Plan: Patient has a history of hypothyroidism for which she takes levothyroxine 125 mcg at home. She has not been on this medication during her stay here. On 07/17, we discovered that her TSH was <0.08. I believe the patient is over treating herself with her levothyroxine, especially now that she is down 30 pounds. Her current hyperthyroidism could be contributing to many of her symptoms including anxiety, brief episode of PSVT, dyspnea, weight loss, and confusion. Plan: Continue the decreased Levothyroxine dose of 112 mcg (8) Tobacco abuse disorder Conclusion/Plan: She has been smoking since she was 21 years old and has never been able to quit despite multiple attempts, including hypnotherapy. She has decreased from 3 packs daily to ~8 cigarettes daily over time. She was very embarrassed to speak about her smoking habits in front of her family and even became tearful when speaking about it. On 07/17, she described herself as being a "chain smoker". She also admitted to us that she has been smoking more since her to help manage her grief. Plan: Nicotine patch daily. I have weaned down the 14 mg patch down to 7 mg, several days ago (9) PSVT (paroxysmal supraventricular tachycardia) Conclusion/Plan: RESOLVED On 07/16 at approximately 13:45, patient had a brief run of PSVT. I suspect this was caused by her current lung disease, however I will also check for hype rthyroidism. On 07/17, her TSH was <0.08, indicating overtreatment with her Levothyroxine. Plan: Monitor on telemetry
[2022-07-29] MEDS: ACETAMINOPHEN 500 MG TABLET PO PRN (16:54)
[2022-07-30] MEDS: ACETAMINOPHEN 500 MG TABLET PO PRN (00:12)
[2022-07-30] MEDS: SODIUM CHLORIDE FLUSH 0.9% 10 ML SYRINGE IVP SCH ×2 (00:14→10:14)
[2022-07-30] MEDS: LEVOTHYROXINE 125 MCG TABLET PO SCH (06:07)
[2022-07-30] MEDS: FUROSEMIDE 20 MG TABLET PO SCH (06:07)
[2022-07-30 07:46] VITALS: BP 112/76
[2022-07-30] MEDS: NICOTINE 7 MG PATCH TOP SCH (08:28)
[2022-07-30] MEDS ORDERED: IBUPROFEN 400 MG TABLET PO PRN (08:55)
[2022-07-30] MEDS ORDERED: FUROSEMIDE 20 MG TABLET PO SCH (09:00)
[2022-07-30] MEDS ORDERED: ASPIRIN EC 81 MG TABLET PO SCH (09:00)
[2022-07-30] MEDS ORDERED: IPRATROPIUM/ALBUTEROL 3 ML NEB INH PRN (09:00)
[2022-07-30] MEDS ORDERED: CHOLECALCIFEROL 25 MCG TABLET PO SCH (09:00)
[2022-07-30] MEDS: SENNA 8.6 MG TABLET PO SCH (10:14)
[2022-07-30] MEDS: polyethylene glycoL 3350 17 GM PACKET PO SCH (10:14)
[2022-07-30] MEDS: DOCUSATE SODIUM 250 MG CAPSULE PO SCH (10:14)
--- NOTE | 2022-07-30 12:04 | Discharge Plan ---
"Discharge Plan for SNF / [facility] - Discharge Plan And Transition Orders Problem Reviewed?: Yes Disposition: 03 SNF DC/Xfer Condition: Stable Allergies and Adverse Reactions: Allergies Allergy/AdvReac Type Severity Reaction Status Date / Time adhesive tape Allergy Rash Verified 08/09/20 14:50 bacitracin Allergy Hives Verified 08/09/20 14:50 [From Triple Antibiotic] homatropine Allergy Respiratory Verified 08/09/20 14:50 [From Hycodan (with homatropin)] hydrocodone Allergy Respiratory Verified 08/09/20 14:50 [From Hycodan (with homatropin)] lidocaine Allergy Hives Verified 08/09/20 14:50 neomycin Allergy Hives Verified 08/09/20 14:50 [From Triple Antibiotic] polymyxin B Allergy Hives Verified 08/09/20 14:50 [From Triple Antibiotic] zolpidem [From Ambien] Allergy Hallucinati Verified 08/09/20 14:50 ons Health Concerns: The patient were first hospitalized with a pneumonia, COPD exacerbation and had low oxygen levels, required supplemental O2. On her third day here, she went into severe alcohol withdrawal, needed to be moved to the ICU, on iv treatment, which led to worsened respiratory depression and she needed to be on a ventila tor. She was critically ill. Family first completed a POLST form requesting maximal medical management and Full Code status. Later that was changed to DNR status and wanting Hospice. Most recently, the patient herself wants selective care and does not want to be under Hospice care. The patient has become deconditioned and is being discharged to a correction facility for more rehab with Physical Therapy and Occupational Therapy, before returning home. Plan of Treatment: Daily PT and OT Care Goals: Improvement in symptoms and stabilization are the goals. Assessment: The patient understands and is agreeable with the plan. - SNF / PENITENTIARY Transition Orders Admit to (Facility): [facility] Under the care of (Name): Staff provider Discharge Diagnosis: (1) Acute on chronic respiratory failure with hypoxia (2) On mechanically assisted ventilation Resolved (3) Pneumonia Resolved (4) COPD with exacerbation Resolved (5) Alcohol withdrawal delirium Resolved (6) Alcohol abuse Recently her intake was 1.5 L of wine per day (7) Cor Pulmonale As per Echo, done this admission, likely caused by her COPD. (8) Hyponatremia Resolved (9) Incidental lung nodule, > 3mm and < 8mm Needs F/U in several mos. (10) Iatrogenic hyperthyroidism Continue the decreased Levothyroxine dose of 112 mcg (11) Tobacco abuse disorder She admitted to being a recent chain smoker (12) PSVT (paroxysmal supraventricular tachycardia) Resolved Medicare Certification Statement: I certify that Post Hospital correction care is medically necessary on a continuing basis for any of the conditions for which she/he is receiving care during hospitalization. Notify PCP of admission and forward orders to primary provider for signature. Weight on admission and: Weekly Call PCP immediately if weight increases by: 5 kg Other Notification Orders: Call PCP immediately if patient develops dyspnea, chest pain/tightness or edema. House Bowel Program: Yes Additional Bowel Program Orders: If no BM after 2 days, nurse may give M.O.M. 30ml PO PRN and/or ducolax Supp 1 KS and/or ROBLES 250mg P.O., and/or senna 1-2 tabs PO. On day 3 nurse may give repeat above order until residents constipation is resolved. Annual Influenza Vaccine (between Nov 15 and June 14): Yes Two-step PPD per [facility] [phone] or approved exception documents: Yes Treatments & Other Orders: Daily PT and OT Medication Orders: PLEASE REFER TO THE DISCHARGE MEDICATION LIST. Insulin Orders?: No - Medications New Prescriptions: Fluticasone/Salmeterol [Advair Hfa 230-21 Mcg Inhaler] 2 puffs IH BID #1 ea Nicotine 7 mg Patch [Nicoderm] 1 patch TOP DAILY #7 patch Thiamine [Vitamin B-1] 100 mg PO DAILY #30 tablet Mvn-Min75/Iron/Iron Ps/Om3/Dha [Wescap-C Dha Softgel] 1 each PO DAILY #30 cap - Diet Type: Geriatric Texture: Regular Liquids: Thin May have monthly special meal: Yes - Therapies | Activity Therapy: Evaluation | Treat if indicated: PT, OT Rehabilitation Potential: Maximize functional status Activity: Activity as Tolerated Weight Bearing: Full Weight Assistance Devices: Walker Additional Instructions: If the patient plans to live on [facility], after discharge from SNF, she needs to establish with a new PCP here, since the previous PCP was in [place]."
[2022-07-30] MEDS: PRENATAL VITAMIN TABLET PO SCH (12:08)
[2022-07-30] MEDS: ALBUTEROL NEB 2.5 MG/3 ML INH SCH (13:03)
--- NOTE | 2022-07-31 07:42 | DISCHARGE SUMMARY ---
Discharge Summary Admit Date: 07/16/22 Discharge Date: 07/30/22 Discharging Provider: Dr Diana Velasquez Primary Care Provider: None Code Status: Do Not Attempt Resuscitation Condition at Discharge: Stable Discharge Disposition: DC/Xfer - HPI History of Present Illness: Patient is a 77 year old female with a history of COPD and tobacco use disorder. She was brought to the ED by ambulance on 07/15. Her chief complaint was generalized weakness. She was evaluated the morning of 07/15 in the outpatient setting at a [facility] in [place] for dyspnea and cough x 1 week. The patient reported that her outpatient evaluation included blood tests as well as a chest x-ray. She was diagnosed with pneumonia and prescribed Zithromax and fluconazole. She filled both of these prescriptions and took the first dose (500 mg) of the Zithromax on 07/15. Patient has COPD although she is not oxygen dependent and does not use or have a nebulizer. She does have an inhaler which she only uses as needed. After her outpatient evaluation, she returned home and later that night, she was taking shower when she experienced rapid onset of generalized weakness, causing her to fall. She described a slow descent to the ground rather than a sudden fall. However, she found that she was too weak to stand back up. Family then called 911. She says she was contacted later that night by her PCP and was told that her sodium was 120 (per patient; at the time she was contacted, she already had called 911 for weakness). EMS arrived to find patient with a pulse ox of 78% on room air, improved with 4 L nasal cannula oxygen to 89-91%. Patient says that when she fell, she did hit her head but denies headache, denies loss of consciousness. She denied any pain on arrival to the ED. Initial labs revealed significant hyponatremia with a sodium level of 123. The ER provider found no concerning findings on CBC (normal white blood cell count at 8.8). Patient's lactate was also normal with result of 1.8. Despite the white blood cell count and lactate results within normal range, patient had a significant consolidation of the right upper lobe on chest x-ray with associated hypoxia. She was not given another dose of azithromycin because she had already taken 500 mg of Zithromax earlier that evening. On 07/16, she was given 2 g of Rocephin in the emergency department and was also given an albuterol neb treatment. The ER provider discussed this case with the on-call physician for [facility] (patient is a [facility] patient). He agreed that the patient would require admission to the hospital for the pneumonia particularly in light of the significant hypoxia on room air. He recommended CT chest with intravenous contrast before disposition; the reason for this is that she did have a fall tonight, and the extent of the right upper lobe consolidation/opacity is causing some degree of obscuration of the ribs. Should she have associated rib fractures in this area, patient might benefit from transfer to another facility. The CT chest was completed on 07/16, and this confirms the right upper lobe consolidation, small patchy infiltrates of the left upper lobe, and a 5 mm nodule on the LEFT major fissure. Also noted is a small right pleural effusion. There is no evidence of bony injury including rib fractures on the CT. The ER physician recontacted the physician for [facility] and relayed these results to him. He subsequently recontacted the ER provider; there are no beds available at other [facility] ([facility], [facility], [facility]), and thus admission to [facility] is approved. Patient was admitted to [facility] on 07/16. Currently, the patient is doing well. She is not having shortness of breath and is itching to get up and walk around. She believes her hyponatremia was caused by not eating much since her shortly after staying in room 2206 just a few weeks ago. She also reports that she has consequently lost about 30 pounds in the last 3 weeks. She no longer has any weakness. She ambulates with a walker. When I asked her about her smoking history, she became tearful and said that "she sees cigarettes everywhere she looks". She has been smoking since age 21 when she got . She has tried quitting smoking, even including hypnotherapy, but nothing has worked. She has, however, decreased from 3 packs daily to 8 cigarettes daily. She was embarrassed to talk about her smoking habits around her son and grandchild, so she asked to pull me aside to discuss this. - HOSPITAL COURSE Hospital Course: (1) Acute respiratory failure with hypoxia She needed suppl O2, escalating amounyts at presentation, until she needed to be intubated and was on the vent. After extubation, an oximetry walk test was done and she did not need to have home O2 ordered. (2) On mechanically assisted ventilation She needed to be on the vent when escalating amounts of Ativan were needed (see #5), and she was already hypoxic from pneumonia and COPD exacerabtion. Extubation was difficult. (3) Pneumonia She completed a course of Zithromax and Ceftriaxone. Her blood culture cultures were neg to date, and she made no sputum to send for culture. (4) COPD with exacerbation She admitted she had returned to "chain smoking" after her 's 3 weekspreviously. She was treated with nebulized bronchodilators and steroids, iv steroids and Mucinex and had slow improvement. She was discharged to resume her Combivent Respimat and Advair was added. She was discharged to a SNF for PT and OT rehab. (5) Alcohol withdrawal delirium On her 3rd day, she became delerious. Alcohol withdrawal from abuse was suspected from her admission high MCV, since she did not disclose her alcohol intake at admission. The son provided information that after her 's 3 weeks previously, she was drinking 1.5L of wine a day, mixed with gingerale. She needed Ativan, and eventually an Ativan drip in the ICU, which added to hypoxia and led to the intubation on the vent. After extubation, she did confirm her inatake and wanted to stop. Resources were provided. (6) Alcohol abuse Recently her intake was 1.5 L of wine per day, we learned. She did have elevated MCV of 109, but normal plts and LFTs. She was treated with Thiamine and Multivitamin and discharged on these. (7) Cor Pulmonale As per Echo done this admission, likely caused by her COPD. (8) Hyponatremia Resolved with iv saline (9) Incidental lung nodule, > 3mm and < 8mm This was told of this findi ng and that she needs F/U in several mos. (10) Iatrogenic hyperthyroidism Her TSH was very low and a free T4 showed excessive level. She was put on a decreased Levothyroxine dose of 112 mcg, and was discharged on this new lower dose. (11) Tobacco abuse disorder She admitted to being a recent chain smoker. A nicotine patch was used here and she was discharged with Rx for a patch. (12) PSVT (paroxysmal supraventricular tachycardia) Resolved after her pulmonary status improved. - ALLERGIES Allergies/Adverse Reactions: Allergies Allergy/AdvReac Type Severity Reaction Status Date / Time adhesive tape Allergy Rash Verified 08/09/20 14:50 bacitracin Allergy Hives Verified 08/09/20 14:50 [From Triple Antibiotic] homatropine Allergy Respiratory Verified 08/09/20 14:50 [From Hycodan (with homatropin)] hydrocodone Allergy Respiratory Verified 08/09/20 14:50 [From Hycodan (with homatropin)] lidocaine Allergy Hives Verified 08/09/20 14:50 neomycin Allergy Hives Verified 08/09/20 14:50 [From Triple Antibiotic] polymyxin B Allergy Hives Verified 08/09/20 14:50 [From Triple Antibiotic] zolpidem [From Ambien] Allergy Hallucinati Verified 08/09/20 14:50 ons - MEDICATIONS Home Medications: Ambulatory Orders Medication Instructions Recorded Confirmed Aspirin [Adult Low Dose Aspirin EC] 81 mg PO DAILY 05/27/19 07/16/22 clonazePAM [Clonazepam] 0.5 mg PO DAILY PRN 05/27/19 07/16/22 Cetirizine [ZyrTEC] 10 mg PO DAILY PRN 07/16/22 07/16/22 Cholecalciferol (Vitamin D3) 100 mcg PO DAILY 07/16/22 07/16/22 [Vitamin D3] Estradiol [Estrace] 1 g VG DAILY 07/16/22 07/16/22 Ibuprofen [Motrin] 400 mg PO TID PRN 07/16/22 07/16/22 Ipratropium/Albuterol [Combivent 1 puffs INH Q6H PRN 07/16/22 07/16/22 Respimat] Fluticasone/Salmeterol [Advair Hfa 2 puffs IH BID #1 ea 07/30/22 230-21 Mcg Inhaler] Levothyroxine [Synthroid] 112 mcg PO QDAC #30 tablet 07/30/22 Mvn-Min75/Iron/Iron Ps/Om3/Dha 1 each PO DAILY #30 cap 07/30/22 [Wescap-C Dha Softgel] Nicotine 7 mg Patch [Nicoderm] 1 patch TOP DAILY #7 patch 07/30/22 Thiamine [Vitamin B-1] 100 mg PO DAILY #30 tablet 07/30/22 Zinc Oxide 20% Oint [Zinc Oxide] 1 applic TOP PRN PRN each 07/30/22 - PHYSICAL EXAM AT DISCHARGE General Appearance: positive: No acute distress, Alert Eyes Bilateral: positive: Normal inspection, EOMI ENT: positive: ENT inspection nml, No signs of dehydration Neck: positive: Nml inspection, Thyroid nml, No JVD Respiratory: positive: No respiratory distress, Breath sounds nml Cardiovascular: positive: Regular rate & rhythm, No murmur Abdomen: positive: Non-tender, No distention, Other (Obese with a pannus) Skin: positive: Warm, Dry Extremities: positive: Non-tender, No pedal edema Neurologic/Psychiatric: positive: Oriented x3, Motor nml, Sensation nml - LABS Result Diagrams: 07/25/22 04:26 07/25/22 04:26 - DIAGNOSTIC IMAGING Diagnostic Imaging Results: Final report reviewed - FOLLOW UP Follow Up: She needs a hospital follow up, was advised to go to a walk-In clinic and/or to establish with a PCP, if she is planning to live here now and not return to [place]. - TIME SPENT Time Spent in Discharge (Minutes): 45
[2022-07-31] MEDS ORDERED: FUROSEMIDE 20 MG TABLET PO SCH (09:00)
== END 2022-07-30 14:13 | DRG 207 ==
LOC: EDUNIT# → ED 21:47 → MS2 07-16 11:22 → MS3 07-16 16:11 → ICU 07-18 15:43 → MS2 07-27 17:58
PROVIDERS: ADMIT Internal Medicine; ATTEND Internal Medicine
PROC: 5A1955Z Respiratory Ventilation, Greater than 96 Consecutive Hours (ICD-10-PCS; principal; 2022-07-18)
PROC: 0BH17EZ Insertion of Endotracheal Airway into Trachea, Via Natural or Artificial Opening (ICD-10-PCS; 2022-07-18)
DX: J18.9 Pneumonia, unspecified organism (principal); J96.01 Acute respiratory failure with hypoxia; E87.1 Hypo-osmolality and hyponatremia; I10 Essential (primary) hypertension; F17.200 Nicotine dependence, unspecified, uncomplicated; Z20.822 Contact with and (suspected) exposure to COVID-19; J44.0 Chronic obstructive pulmonary disease with (acute) lower respiratory infection; F10.131 Alcohol abuse with withdrawal delirium; I47.1 Supraventricular tachycardia; I50.30 Unspecified diastolic (congestive) heart failure; R91.1 Solitary pulmonary nodule; F17.210 Nicotine dependence, cigarettes, uncomplicated; Z63.4 Disappearance and death of family member; I27.81 Cor pulmonale (chronic); E05.80 Other thyrotoxicosis without thyrotoxic crisis or storm; E78.00 Pure hypercholesterolemia, unspecified; H54.7 Unspecified visual loss; H91.90 Unspecified hearing loss, unspecified ear; F41.9 Anxiety disorder, unspecified; G89.29 Other chronic pain; M54.9 Dorsalgia, unspecified; Z90.710 Acquired absence of both cervix and uterus; Z90.49 Acquired absence of other specified parts of digestive tract; Z79.82 Long term (current) use of aspirin; Z79.899 Other long term (current) drug therapy; Z79.890 Hormone replacement therapy; E66.9 Obesity, unspecified; R62.7 Adult failure to thrive; Z51.5 Encounter for palliative care; Z68.30 Body mass index [BMI] 30.0-30.9, adult
CPT/HCPCS: 36415; 36600; 70450; 71045; 71046; 71260; 80048; 80053; 80076; 81003; 82330; 82607; 82746; 82803; 83605; 83690; 83735; 83880; 84100; 84132; 84134; 84295; 84443; 85025; 87040; 87150; 87633; 93005; 94002; 94003; 94640; 96365; 96367; 96375; 97112; 97162; 97165; 97530; 99285; A9270; J0131; J0330; J1650; J2060; J2250; J3010; J3411; J7040; P9047; Q9967; 81001; 87086; 94770